=== PATIENT | female | born 1960 | race Caucasian/White ===

== ENCOUNTER 2022-01-21 22:44 | Emergency (ER) | payer MEDICAID, SELFPAY ==
--- NOTE | 2022-01-21 22:52 | ECG_ITS ---
Test Reason : WEAKNESS Blood Pressure : / mmHG Vent. Rate : 089 BPM Atrial Rate : 089 BPM P-R Int : 148 ms QRS Dur : 092 ms QT Int : 362 ms P-R-T Axes : 055 -08 080 degrees QTc Int : 440 ms Normal sinus rhythm Intra-ventricular conduction delay Minimal voltage criteria for LVH, may be normal variant ( Dix product ) Borderline ECG When compared with ECG of 15-JUN-2019 17:23, Heart rate has increased Referred By: Ellie Still Electronically Signed By:JIMMY GAYTAN MD
[2022-01-21 22:54] VITALS: BP 160/70; PULSE 70; O2SAT 98
[2022-01-21 23:13] VITALS: BP 167/76; PULSE 76; RESP 20; TEMP 37.8; O2SAT 94; BMI 27.4
--- NOTE | 2022-01-21 23:16 | ED.WEAKNESS ---
HPI - Weakness General Chief complaint: Weakness Stated complaint: increased weakness Time Seen by Provider: 01/21/22 22:51 Source: family Mode of arrival: EMS Limitations: other (non verbal dementia ) History of Present Illness HPI Narrative: This is a 61-year-old female past medical history significant for CVA, dementia, nonverbal presenting to the emergency department with family member (daughter) who reports that patient has been weak, nausea and vomiting all day. Tells me that her mother has just been off the past day. She tells me each time she tries to feed her mother she begins to vomit has vomited alot . She reports she feels like mother is weak. She tells me at baseline she is not able to do much but today things just seem different. Mother is unable to verbalize any complaints. Unable to obtain an accurate history or review of systems. Related Data Allergies Allergy/AdvReac Type Severity Reaction Status Date / Time No Known Allergies Allergy Unverified 12/27/19 15:52 [No Known Allergies*] none Allergy Unknown Uncoded 08/10/18 00:00 Review of Systems Review of Systems: Yes Unobtainable due to mental status PMFSH Past Medical History Attestation statement: The following information was validated with the patient. Source: old records reviewed and nursing notes reviewed Social History Social History Advance Directives: No Advance Directives Information Provided: No Physical Exam Vital Signs: Vital Signs: Last Vital Signs Temp 99.8 F 01/22/22 00:22 Pulse 74 01/22/22 00:22 Resp 18 01/22/22 00:22 BP 197/91 H 01/22/22 00:22 Pulse Ox 97 01/22/22 00:22 O2 Del Method 01/22/22 00:22 BMI result Body Mass Index 27.4 Vital signs stable however, low-grade fever. Appearance: Alert.? Awake. Appears comfortable. No acute distress.? Head: Normocephalic, atraumatic, no step-offs or deformities Eyes: Pupils equal, round and reactive to light.? Extraocular movements intact. ENT: Pharynx normal.? Neck: Normal inspection.? Neck supple.? CVS: Normal heart rate and rhythm.? Pulses normal.? Respiratory: No respiratory distress.? Breath sounds normal.? Abdomen: Soft and patient grimaces with palpation of abdomen throughout. Normal bowel sounds.? Skin: Skin warm and dry.? Normal skin color.? Normal skin turgor.? Extremities: No lower extremity edema.? No calf ttp. Global weakness. Neuro: Awake, alert, moving all extremities. Neuro exam appears to be at patient's baseline per family member, unable to participate in review of systems, not following commands. Course Reevaluation(s) Reevaluation #1: CBC within normal limits. Chemistry with no acute electrolyte abnormalities requiring intervention. Lactic acid negative. Troponin 35.5 likely secondary to demand ischemia EKG with LVH however no signs of acute ischemia. Unlikely ACS. Will repeat troponin at 03:00 hour jamie. BNP 67. Patient noted to be COVID positive. Patient difficult stick therefore delay in obtaining CT scans with contrast. Patient will get a Aponte catheter and urine will be obtained that way. Time: 00:46 Reevaluation #2: Sign out to Dr. Ramos Time: 00:51 MDM - Weakness MDM Narrative Medical decision making narrative: 2310 61-year-old female presents to the emergency department with daughter who is concerned for nausea, vomiting, weakness. Patient has dementia at baseline is nonverbal unable to participate in review of systems or history. Physical exam with low-grade fever, patient appears comfortable and in no acute distress according to daughter neuro at baseline. Regular rate and rhythm, lungs clear, abdomen soft patient grimacing with palpation of abdomen however no peritoneal signs, normal bowel sounds. Normoactive bowel sounds. Will rule out viral infection COVID, UTI as most likely causes. Unlikely CVA, stroke, ICH. Will also rule out ACS. Will obtain CT of the chest, abdomen, pelvis and head. Will obtain basic labs, urine. Will rule out infection, ACS, electrolyte abnormalities, anemia. Medical Records Attestation: I reviewed the patient's medical records. Lab Data Attestation: I reviewed the patient's lab results. Result diagrams: 01/21/22 23:54 01/21/22 23:54 Labs: Lab Results 01/21/22 01/21/22 01/21/22 Range/Units 23:54 23:54 23:54 WBC 8.7 (4.8-10.8) X10*3/uL RBC 5.10 (4.20-5.50) X10*6/uL Hgb 15.0 (12.0-16.0) g/dl Hct 44.5 (37.0-47.0) % MCV 87.3 (80.0-98.0) fL MCH 29.4 (27.0-33.0) pg MCHC 33.7 (31.0-35.0) g/dl RDW 12.2 (11.0-16.0) % Plt Count 183 (160-400) X10*3/uL MPV 9.6 (9.4-12.3) fL Immature Gran % (Auto) 0.3 (0.0-0.4) % Neut % (Auto) 88.3 H (45-73) % Lymph % (Auto) 5.7 L (20-40) % [place] % (Auto) 5.1 (2-11) % Eos % (Auto) 0.3 (0-4) % Baso % (Auto) 0.3 (0-2) % Lymph # (Auto) 0.5 L (1.2-4.9) X10*3/uL [place] # (Auto) 0.4 (0.1-1.2) X10*3/uL Eos # (Auto) 0.0 (0.0-0.4) X10*3/uL Baso # (Auto) 0.0 (0.0-0.2) X10*3/uL Abs Immat Gran (auto) 0.03 (0.00-0.03) X10*3/uL Absolute Neuts (auto) 7.6 (2.0-8.3) x10*3/uL Absolute Nucleated RBC 0.000 (0.0-0.012) X10*3/uL Nucleated RBC % (auto) 0.0 (0.0-0.2) /100WBC Sodium 140 (135-145) mmol/L Potassium 4.2 (3.3-5.1) mmol/L Chloride 101 (96-108) mmol/L Carbon Dioxide 26 (22-29) mmol/L Anion Gap 17 (12-20) BUN 11 (9-16) mg/dL Creatinine 1.09 (0.5-1.4) mg/dL Estim Creat Clear Calc 49.6 Estimated GFR 51 Random Glucose 151 H (60-115) mg/dL Lactic Acid (0.5-2.0) mmol/L Calcium 9.7 (8.4-10.2) mg/dL Magnesium 1.7 (1.6-2.6) mg/dL Total Bilirubin 0.6 (0.0-1.0) mg/dL AST 28 (5-31) U/L ALT 23 (0-31) U/L Alkaline Phosphatase 122 H (39-117) U/L Troponin I High Sens 35.5 H (<3.5-17.0) ng/L B-Natriuretic Peptide (<100) pg/mL Total Protein 7.5 (6.5-8.0) g/dL Albumin 4.6 (3.5-5.0) g/dL COVID-19 ([facility]ENIO) (Negative) COVID-19 Clin Com 01/21/22 01/21/22 01/21/22 Range/Units 23:54 23:54 23:54 WBC (4.8-10.8) X10*3/uL RBC (4.20-5.50) X10*6/uL Hgb (12.0-16.0) g/dl Hct (37.0-47.0) % MCV (80.0-98.0) fL MCH (27.0-33.0) pg MCHC (31.0-35.0) g/dl RDW (11.0-16.0) % Plt Count (160-400) X10*3/uL MPV (9.4-12.3) fL Immature Gran % (Auto) (0.0-0.4) % Neut % (Auto) (45-73) % Lymph % (Auto) (20-40) % [place] % (Auto) (2-11) % Eos % (Auto) (0-4) % Baso % (Auto) (0-2) % Lymph # (Auto) (1.2-4.9) X10*3/uL [place] # (Auto) (0.1-1.2) X10*3/uL Eos # (Auto) (0.0-0.4) X10*3/uL Baso # (Auto) (0.0-0.2) X10*3/uL Abs Immat Gran (auto) (0.00-0.03) X10*3/uL Absolute Neuts (auto) (2.0-8.3) x10*3/uL Absolute Nucleated RBC (0.0-0.012) X10*3/uL Nucleated RBC % (auto) (0.0-0.2) /100WBC Sodium (135-145) mmol/L Potassium (3.3-5.1) mmol/L Chloride (96-108) mmol/L Carbon Dioxide (22-29) mmol/L Anion Gap (12-20) BUN (9-16) mg/dL Creatinine (0.5-1.4) mg/dL Estim Creat Clear Calc Estimated GFR Random Glucose (60-115) mg/dL Lactic Acid 1.1 (0.5-2.0) mmol/L Calcium (8.4-10.2) mg/dL Magnesium (1.6-2.6) mg/dL Total Bilirubin (0.0-1.0) mg/dL AST (5-31) U/L ALT (0-31) U/L Alkaline Phosphatase (39-117) U/L Troponin I High Sens (<3.5-17.0) ng/L B-Natriuretic Peptide 67 (<100) pg/mL Total Protein (6.5-8.0) g/dL Albumin (3.5-5.0) g/dL COVID-19 ([facility]) Positive A (Negative) COVID-19 Clin Com See Note Critical Care Time Critical Care Time Critical Care Time: No Discharge Plan Discharge Clinical Impression: Weakness, Nausea & vomiting, Physical deconditioning, COVID-19 Patient Disposition: Still a Patient Instructions: COVID-19 (Coronavirus Disease 2019) (ED) Additional Instructions: Take your medications as prescribed. If you were prescribed antibiotics today, it is important that you take your medication to their entirety, do not skip any doses, do not finish them early. Today you tested positive for COVID-19. Take Ibuprofen or Tylenol as needed for fevers or body aches. Quarantine for 5 days and ensure you wear a mask. After 5 days you should wear a mask for 5 days after that. Practice social distancing and good hand hygiene. Drink plenty of fluids. Follow-up with your primary care provider this week. Return to the emergency department with new or worsening symptoms. In case of emergency call 911 You can purchase a pulse oximeter from your local pharmacy or grocery store, and monitor your oxygen saturation if it goes below 94% you should return to the emergency department for further evaluation.
[2022-01-22 00:01] LABS: MANUAL DIFF FLAG NO
[2022-01-22 00:02] LABS: Basophils Percent Auto 0.3 % (0-2); Eosinophils Percent Auto 0.3 % (0-4); Hematocrit 44.5 % (37.0-47.0); Imm Gran Abs Auto 0.03 X10*3/uL (0.00-0.03); Imm Gran Pct Auto 0.3 % (0.0-0.4); Lymphocytes Absolute Auto 0.5 X10*3/uL (1.2-4.9); Lymphocytes Percent Auto 5.7 % (20-40); Mean Corpuscular HGB Conc 33.7 g/dl (31.0-35.0); Mean Corpuscular Hemoglobin 29.4 pg (27.0-33.0); Mean Corpuscular Volume 87.3 fL (80.0-98.0); Mean Platelet Volume 9.6 fL (9.4-12.3); Monocytes Absolute Auto 0.4 X10*3/uL (0.1-1.2); Monocytes Percent Auto 5.1 % (2-11); Neutrophils Absolute Auto 7.6 x10*3/uL (2.0-8.3); Neutrophils Percent Auto 88.3 % (45-73); Platelet Count 183 X10*3/uL (160-400); Red Cell Distribution Width 12.2 % (11.0-16.0); White Blood Count 8.7 X10*3/uL (4.8-10.8)
[2022-01-22 00:06] LABS: COVID-19 Test Positive (Negative)
[2022-01-22 00:14] LABS: Lactic Acid 1.1 mmol/L (0.5-2.0)
[2022-01-22 00:17] LABS: Alanine Aminotransferase 23 U/L (0-31); Albumin Level 4.6 g/dL (3.5-5.0); Alkaline Phosphatase 122 U/L (39-117); Anion Gap 17 (12-20); Aspartate Amino Transferase 28 U/L (5-31); Bilirubin Total 0.6 mg/dL (0.0-1.0); Blood Urea Nitrogen 11 mg/dL (9-16); Calcium 9.7 mg/dL (8.4-10.2); Carbon Dioxide 26 mmol/L (22-29); Chloride 101 mmol/L (96-108); Creatinine Clr Calc Pharmacy 49.6; Estimated Glomerular Filt Rate 51; Glucose Random 151 mg/dL (60-115); Magnesium 1.7 mg/dL (1.6-2.6); Potassium 4.2 mmol/L (3.3-5.1); Sodium 140 mmol/L (135-145); Total Protein 7.5 g/dL (6.5-8.0)
[2022-01-22 00:20] LABS: Troponin-I High Sensitivity 35.5 ng/L (<3.5-17.0)
[2022-01-22 00:21] LABS: B Type Natriuretic Peptide 67 pg/mL (<100)
[2022-01-22 00:22] VITALS: BP 197/91; PULSE 74; RESP 18; TEMP 37.7; O2SAT 97
[2022-01-22] MEDS: Acetaminophen 325 MG TABLET 975 MG PO (00:26)
[2022-01-22] MEDS: 0.9 % Sodium Chloride 1,000 ML 999 ML IV (01:25)
[2022-01-22] MEDS: ondansetron HCL 4 MG/2 ML VIAL IVPUSH (01:25)
[2022-01-22 01:41] LABS: Appearance Urine Clear; Color Urine Yellow; Glucose Urine UA Negative (Negative); Leukocyte Esterase Urine Trace (Negative); Nitrite Urine Negative (Negative); PH 5.5 (5.0-9.0); UMIC TRIGGER UACC YES; Urine Blood Trace (Negative); Urine Ketones Negative (Negative); Urine Protein Negative (Neg-Trace)
[2022-01-22 01:53] LABS: Bacteria Urine Trace (None Seen); Hyaline Casts Urine 0-2 /LPF (0-2); Squamous Epithelial Cell Urine 0-2 /HPF (0-2); WBC Urine 0-5 /HPF (0-5)
[2022-01-22 02:41] VITALS: BP 137/77; PULSE 68; RESP 18; TEMP 37; O2SAT 94
[2022-01-22 03:18] LABS: Troponin-I High Sensitivity 30.9 ng/L (<3.5-17.0)
== END 2022-01-22 02:55 | disposition home or self-care (01) ==
PROVIDERS: Physician Assistant; Emergency Provider Internal Medicine; PCP Family Medicine
DX: U07.1 COVID-19 (principal); R53.1 Weakness; R11.2 Nausea with vomiting, unspecified; R06.02 Shortness of breath; Z79.899 Other long term (current) drug therapy
CPT/HCPCS: 36415; 80053; 81001; 83605; 83735; 83880; 84484; 85025; 87040; 87635; 93005; 96374; 99284; J2405

== ENCOUNTER 2022-03-18 09:25 | Observation (INO) | payer MEDICAID, SELFPAY ==
[2022-03-18] VITALS (8 sets, daily range): BP systolic 154–190; BP diastolic 72–96; PULSE 42–58; RESP 13–16; TEMP 36.4–36.9; O2SAT 92–99; BMI 34.8
--- NOTE | ~2022-03-18 | CT_ITS ---
EXAMINATION: CT HEAD WITHOUT CONTRAST (STROKE PROTOCOL) CLINICAL INFORMATION: Stroke protocol. COMPARISON: Prior CT October 2012 TECHNIQUE: Contiguous axial imaging was performed from the skull base to vertex without intravenous administration of contrast. This CT examination was performed using dose optimization techniques as appropriate, variously including the following: *Automated exposure control *Adjustment of mA and/or kV according to patient size (this includes techniques or standardized protocols for targeted exams where dose is matched to indication/reason for exam; i.e. extremities or head) *Use of iterative reconstruction technique DLP: 736 mGy-cm FINDINGS: There are periventricular white matter changes stable compared to prior compatible with chronic small vessel disease. There is no mass hemorrhage or cerebral edema. There are arterial calcifications. Ventricles and basal cisterns are unremarkable. There is chronic mucosal thickening of the maxillary sinuses left greater than right Mastoid air cells clear. No fracture. There is stranding in the subcutaneous soft tissues in the right high parietal occipital region compatible with contusion. CT/CT head for stroke IMPRESSION: No acute intracranial pathology. This critical result was discussed with Dr. Mariscal at 9:58 AM on 03/18/2022. It was ascertained that the content and urgency of the report was understood at the time of direct communication.
--- NOTE | ~2022-03-18 | CT_ITS ---
EXAMINATION: CTA NECK WITH CONTRAST (STROKE) CTA BRAIN WITH CONTRAST (STROKE) CLINICAL INFORMATION: Stroke. Right-sided weakness. COMPARISON: Brain MRI from 07/14/2012. TECHNIQUE: Initial noncontrast bobbin presser imaging of the head and neck was performed. Comparison is made with noncontrast head CT from earlier today. Test bolus sequences followed by intravenous administration 70 mL of Omnipaque 350. Helical imaging was performed in the axial plane from the aortic arch to the skull vertex. Delayed postcontrast imaging of the head was also performed. The data was processed at the senior cytogenetic technologist's workstation for generation of MIP sequences. Angled MIPs and volume rendered reformatted images were also generated at an offline 3D workstation. Stenoses are assessed in accordance with NASCET criteria unless otherwise indicated. This CT examination was performed using dose optimization techniques as appropriate, variously including the following: *Automated exposure control. *Adjustment of mA and/or kV according to patient size (this includes techniques or standardized protocols for targeted exams where dose is matched to indication/reason for exam; i.e. extremities or head). *Use of iterative reconstruction technique. DLP: 1549 mGy-cm FINDINGS: CT Head: There is no evidence of acute intracranial hemorrhage or edematous territorial infarction. Confluent hypoattenuation in the periventricular and deep white matter. Anderson-white matter differentiation is preserved. Proportional prominence of the ventricles and sulcal spaces. No evidence for obstructive hydrocephalus. No abnormal mass effect or midline shift. No extra-axial fluid collections. No pathologic intra-axial enhancement or regional oligemia. No acute soft tissue or osseous abnormalities. Moderate mucosal thickening of the paranasal sinuses. The mastoid air cells and middle ear cavities are clear. Multifocal odontogenic enamel erosions. Periapical lucency associated with the maxillary left molar. CT Neck: The thyroid gland and remaining cervical soft tissues are within normal limits. Straightening of the normal cervical lordosis. Moderate degenerative disc disease from C2-C7. Facet and uncovertebral joint arthropathy leads to osseous encroachment on the neural foramina from C2-C6. CT Upper Chest: Mosaic attenuation pattern of the visualized upper lungs. Otherwise, the visualized lung apices and upper mediastinum are within normal limits. Neck CTA: Aortic Arch: Normal contour and caliber with mild calcific atherosclerotic disease. Classic 3 vessel branching pattern of the aortic arch. Great Vessel Origins: No significant stenosis of the branch origins. Right Common Carotid Artery: No focal stenosis or occlusion. Retropharyngeal course. Cervical Right Internal Carotid Artery: Mild atherosclerotic disease of the carotid bulb and proximal internal carotid artery without flow-limiting stenosis. Left Common Carotid Artery: No focal stenosis or occlusion. Retropharyngeal course. Cervical Left Internal Carotid Artery: Mild atherosclerotic disease of the carotid bulb and proximal internal carotid artery without flow-limiting stenosis. Cervical Right Vertebral Artery: Mildly dominant. No focal stenosis or occlusion. Cervical Left Vertebral Artery: No focal stenosis or occlusion. Brain CTA: Intracranial Internal Carotid Arteries: Calcific atherosclerotic disease of the intracranial internal carotid arteries without occlusion or flow-limiting stenosis. Right Anterior Cerebral Artery: Normal A1 segment. Normal opacification of the distal BELA segments. Left Anterior Cerebral Artery: Normal A1 segment. Normal opacification of the distal BELA segments. Anterior Communicating Artery: Normal. Right Middle Cerebral Artery: There is moderate atherosclerotic irregularity of the M1 segment without flow-limiting stenosis or occlusion. Symmetric arborization of the distal segments. Left Middle Cerebral Artery: There is moderate atherosclerotic irregularity of the M1 segment without flow-limiting stenosis or occlusion. Symmetric arborization of the distal segments. Right Vertebral Artery: Atherosclerotic disease causes mild stenosis of the V4 segment. Normal opacification of the proximal segments of the posterior inferior cerebellar artery. Left Vertebral Artery: Atherosclerotic disease causes moderate stenosis of the V4 segment. Normal opacification of the proximal segments of the posterior inferior cerebellar artery. Basilar Artery: Normal without focal stenosis or occlusion. Normal appearance of the proximal superior cerebellar arteries. Right Posterior Cerebral Artery: Moderate multifocal stenoses of the P1 segment. Normal opacification of the distal X [employer]LECTRON[employer] WIREMAN segments. Left Posterior Cerebral Artery: Mild atherosclerotic stenosis of the P1 segment. Normal opacification of the distal X R[employer]LECT[employer] WIREMAN segments. Normal opacification of the superior sagittal, straight, transverse, and sigmoid sinuses. CT/CT angio head neck stroke IMPRESSION: 1. No evidence of acute intracranial hemorrhage or edematous territorial infarction. 2. Extensive underlying microangiopathy and generalized cerebral volume loss. 3. CTA of the head and neck without proximal occlusion. 4. Intracranial atherosclerotic disease. Moderate atherosclerotic stenoses of the M1 segment of the MCAs, V4 segment of the left vertebral artery, and P1 segment of the right X R[employer]LECT[employer] WIREMAN. No additional proximal flow-limiting stenoses. This critical result was discussed with Dr.Steven Mariscal at 10:33 on 03/18/2022 and it was ascertained that the content and urgency of the report was understood at the time of direct communication.
--- NOTE | 2022-03-18 09:30 | ED_ITS ---
HPI - Weakness General Chief complaint: Stroke Stated complaint: LKWT 11pm, Stroke alert per EMS Time Seen by Provider: 03/18/22 09:29 Source: EMS Mode of arrival: EMS Limitations: language barrier History of Present Illness HPI Narrative: right sided weakness, last known well at 11pm. Daughter noticed the deficit this morning. Patient with prior history of CVA with aphasia and had left sided weakness for old stroke and now has right sided weakness MD Complaint: focal weakness Onset (ago): hour(s) Duration: constant Location: RUE, right hand and RLE Severity: moderate Related Data Home Medications Medication Instructions Recorded Confirmed albuterol sulfate 90 mcg/actuation 2 puff inhalation Q4-6H PRN 03/18/22 03/18/22 aerosol inhaler (ProAir HFA) Wheezing allopurinol 100 mg tablet 1 tab PO QAM 03/18/22 03/18/22 aspirin 325 mg tablet,delayed 1 tab PO QAM 03/18/22 03/18/22 release atorvastatin 80 mg tablet 1 tab PO BEDTIME 03/18/22 03/18/22 cholecalciferol (vitamin D3) 25 1 cap PO QAM 03/18/22 03/18/22 mcg (1,000 unit) capsule (Vitamin D3) docusate sodium 100 mg capsule 1 cap PO BID constipation 03/18/22 03/18/22 ferrous sulfate 325 mg (65 mg 1 tab PO DAILY 03/18/22 03/18/22 iron) tablet (FeroSul) fluoxetine 20 mg capsule 1 cap PO QAM 03/18/22 03/18/22 lisinopril 40 mg tablet 1 tab PO QAM 03/18/22 03/18/22 metoprolol tartrate 25 mg tablet 1 tab PO BID 03/18/22 03/18/22 omeprazole 20 mg capsule,delayed 1 cap PO BID 03/18/22 03/18/22 release Previous Rx's Medication Instructions Recorded ondansetron 4 mg disintegrating 4 mg PO Q6-8H PRN nausea and 01/22/22 tablet vomiting #7 tabs Allergies Allergy/AdvReac Type Severity Reaction Status Date / Time No Known Allergies Allergy Unverified 12/27/19 15:52 [No Known Allergies*] none Allergy Unknown Uncoded 08/10/18 00:00 Review of Systems Review of Systems: Yes Unobtainable due to mental status and Other (patient is aphasic) [facility] Past Medical History Medical History (Updated 03/18/22 @ 13:07 by CHRIS To) Asthma Diabetes HLD (hyperlipidemia) HTN (hypertension) Stroke Surgical History History of cholecystectomy Family History Family History Other Diabetes Social History Social History (Updated 03/18/22 @ 13:05 by CHRSI To) Household Members: Children Alcohol intake: never Patient Tobacco Use Status: Never used Tobacco Use of substances other than those prescribed or required for medical reasons: No Advance Directives: No Advance Directives Information Provided: Yes Physical Exam Vital Signs: Vital Signs: Last Vital Signs Temp 98.3 F 03/18/22 14:47 Pulse 42 L 03/18/22 14:47 Resp 16 03/18/22 14:47 BP 161/79 H 03/18/22 14:47 Pulse Ox 96 03/18/22 14:47 O2 Del Method 03/18/22 14:47 BMI result Body Mass Index 34.8 Const: Other: female aphasic looking older than stated age Nutritional Appearance: average body habitus Limitations: no limitations HEENT: Head: Yes normal to inspection Ears: external ears normal General nose exam: Normal external nose present Mouth: Normal oral and palatal mucosa present and oropharynx normal Throat: Yes posterior oropharynx normal Eyes: General: appearance normal, both eyes and all related structures Neck: Other: supple Neck: Yes normal visual inspection Chest: Chest palpation & inspection: normal inspection of the chest Resp: Auscultation: clear to auscultation bilaterally Cardio: Jugular venous distension: no JVD Rate: regular rate Rhythm: regular rhythm Heart sounds: S1 normal heart sound present and S2 normal heart sound present GI: Inspection: Yes normal to inspection Palpation (GI): Soft to palpation, nontender and No hepatosplenomegaly present Auscultation: normal bowel sounds : General: Yes no CVA tenderness Back/Spine/Pelvis: Back: no CVA tenderness Skin: General skin exam: no rashes or lesions noted Neuro: Other: left side at baseline right new upper and lower weakness, NIH 3 Cranial nerv es: Yes CN's II-XII intact bilaterally Extrem: General: Yes normal to inspection Psych: Appearance: grossly normal NIH Stroke Scale Internal: Initial- Upon Arrival Level of Consciousness: Alert Level of Consciousness Questions: Answers neither question correctly (aphasic at baseline) Level of Consciousness Commands: Performs both tasks correctly Best Gaze: Normal Visual: No visual loss (dosen't talk) Facial Palsy: Normal Motor Arm (Right): Drift Motor Arm (Left): No drift Motor Leg (Right): Drift Motor Leg (Left): No drift Limb Ataxia: Absent Sensory: Normal Best Language: No aphasia (patient is aphasic at baseling) Dysarthia: Normal (non verbal) Course Reevaluation(s) Reevaluation #1: I spent 40 minutes of critical care, with interventions, assessments, speaking to patient, consultants, and family. Dr. Phelps aware and discussed Time: 11:47 Medications Administered Generic Name Dose Route Start Last Admin Trade Name Freq PRN Reason Stop Dose Admin Allopurinol 100 mg 03/18/22 13:15 03/18/22 13:30 Allopurinol 100 Mg Tablet PO Not Given DAILY KAROL Aspirin 325 mg 03/18/22 13:15 03/18/22 13:30 Aspirin Enteric Coated 325 Mg Tablet.Dr PO Not Given DAILY KAROL Enoxaparin Sodium 40 mg 03/18/22 12:45 03/18/22 13:24 Enoxaparin Sodium 40 Mg/0.4 Ml Syringe SUBCUT 40 mg Q24H KAROL Administration Fluoxetine HCl 20 mg 03/18/22 13:15 03/18/22 13:30 Fluoxetine Hcl 20 Mg Capsule PO Not Given DAILY [facility] Insulin Human Lispro 0 unit 03/18/22 16:30 03/18/22 15:36 Insulin Lispro 100 Unit/Ml 3 Ml Vial SUBCUT Not Given QIDACHS [facility] Protocol Lisinopril 40 mg 03/18/22 14:00 03/18/22 13:30 Lisinopril 40 Mg Tablet PO Not Given DAILY [facility] Protocol Sodium Chloride 3 ml 03/18/22 16:00 03/18/22 16:25 0.9 % Sodium Chloride Flush 3 Ml Syringe IVFLUSH 3 ml QSHIFT KAROL Administration Discontinued Medications Generic Name Dose Route Start Last Admin Trade Name Freq PRN Reason Stop Dose Admin Iohexol 100 ml 03/18/22 09:57 03/18/22 10:05 Iohexol 350 Mg/Ml 100 Ml Infus..Btl IV 03/18/22 09:58 70 ml ONCE ONE Administration Discharge Plan Discharge Clinical Impression: Stroke Patient Disposition: Admitted As Inpatient
--- NOTE | 2022-03-18 09:37 | ECG_ITS ---
Test Reason : stroke Blood Pressure : / mmHG Vent. Rate : 055 BPM Atrial Rate : 055 BPM P-R Int : 154 ms QRS Dur : 104 ms QT Int : 460 ms P-R-T Axes : 032 -17 068 degrees QTc Int : 440 ms Sinus bradycardia Minimal voltage criteria for LVH, may be normal variant ( Nik product ) Borderline ECG When compared with ECG of 21-JAN-2022 23:20, Vent. rate has decreased BY 34 BPM Referred By: Jamal Mariscal Electronically Signed By:JULIANNE FORTUNE MD
[2022-03-18 09:49] LABS: Glucose, Whole Blood 101 mg/dL (60-115)
[2022-03-18] MEDS: iohexoL 350 MG/ML 100 ML INFUS..BTL IV (10:05)
--- NOTE | 2022-03-18 10:24 | PC.NURSE ---
pt alert. unable to assess orientation. presents with rt side weakness. pt speaks very little at baseline. BP 160s. badycardic on HR monitor. other VS wnl. CT taken. waiting on results. daughter at bedside.
[2022-03-18 10:42] LABS: MANUAL DIFF FLAG NO
[2022-03-18 10:48] LABS: Basophils Percent Auto 0.2 % (0-2); Eosinophils Absolute Auto 0.1 X10*3/uL (0.0-0.4); Eosinophils Percent Auto 2.4 % (0-4); Hematocrit 42.3 % (37.0-47.0); Hemoglobin 14.1 g/dl (12.0-16.0); Imm Gran Abs Auto 0.01 X10*3/uL (0.00-0.03); Imm Gran Pct Auto 0.2 % (0.0-0.4); Lymphocytes Absolute Auto 1.5 X10*3/uL (1.2-4.9); Lymphocytes Percent Auto 32.9 % (20-40); Mean Corpuscular HGB Conc 33.3 g/dl (31.0-35.0); Mean Corpuscular Hemoglobin 29.3 pg (27.0-33.0); Mean Corpuscular Volume 87.9 fL (80.0-98.0); Mean Platelet Volume 10.1 fL (9.4-12.3); Monocytes Absolute Auto 0.4 X10*3/uL (0.1-1.2); Monocytes Percent Auto 7.8 % (2-11); Neutrophils Absolute Auto 2.5 x10*3/uL (2.0-8.3); Neutrophils Percent Auto 56.5 % (45-73); Platelet Count 158 X10*3/uL (160-400); Red Blood Count 4.81 X10*6/uL (4.20-5.50); Red Cell Distribution Width 12.2 % (11.0-16.0); White Blood Count 4.5 X10*3/uL (4.8-10.8)
[2022-03-18 10:51] LABS: INTERNATIONAL NORM RATIO 0.9 (0.9-1.1); Prothrombin Time 10.5 SEC (10.0-13.1)
[2022-03-18 10:55] LABS: Partial Thromboplastin Time 33.7 SEC (26.0-36.4)
[2022-03-18 11:05] LABS: Anion Gap 12 (12-20); Blood Urea Nitrogen 13 mg/dL (9-16); Calcium 8.7 mg/dL (8.4-10.2); Carbon Dioxide 28 mmol/L (22-29); Chloride 106 mmol/L (96-108); Creatinine Clr Calc Pharmacy 52.4; Estimated Glomerular Filt Rate > 60; Glucose Random 109 mg/dL (60-115); Potassium 4.1 mmol/L (3.3-5.1); Sodium 142 mmol/L (135-145)
[2022-03-18 11:11] LABS: Troponin-I High Sensitivity 30.7 ng/L (<3.5-17.0)
[2022-03-18 12:45] LABS: Stroke Lab Use COMPLETE
--- NOTE | 2022-03-18 12:54 | PM.IMHP ---
History of Present Illness Date of Service: 03/18/22 <CHRIS To - Last Filed: 03/18/22 15:35> Attending physician on admission: Raghu Quiroga <CHRIS To - Last Filed: 03/18/22 15:35> Chief Complaint: Right side weakness <CHRIS To - Last Filed: 03/18/22 15:35> This is a 61 year old female with a history of stroke and residual left-sided weakness, diabetes among others who was brought to the emergency department today with new onset of right-sided weakness this morning. She was in her usual state of health when she went to bed last night between 10:30-11 pm. When she woke up this morning, her daughter noticed that she wasn't using her arms to assist her into her wheelchair and she wasn't putting weight on her right leg either. She has a history of left side weakness from previous stroke but is able to move both extremities. She is primarily nonverbal and is wheelchair bound and her history was primarily obtained from her daughter at the bedside. In the ED, her Brain CT showed no acute intracranial pathology.CTA of head and neck Revealed extensive underlying microangiopathy and generalized cerebral volume loss but no proximal occlusion. On my evaluation she was able to move both her right arm and right leg although right leg appeared somewhat more weak in comparison to left side. she was also noted to be bradycardic. Blood pressure has remained stable. Unable to assess for any symptoms although she appears comfortable, awake and alert at this time. She will be admitted the hospital overnight for observation for evaluation of right side weakness. <CHRIS To - Last Filed: 03/18/22 15:35> Review of Systems Review of Systems: unable to obtain ROS as the patient is primarily nonverbal at baseline <CHRIS To - Last Filed: 03/18/22 15:35> [facility] Medical History: Medical History (Updated 03/18/22 @ 13:07 by CHRIS To) Asthma Diabetes HLD (hyperlipidemia) HTN (hypertension) Stroke <CHRIS To Last Filed: 03/18/22 15:35> Functional capacity: wheelchair bound <CHRIS To - Last Filed: 03/18/22 15:35> Family History: Family History Other Diabetes <CHRIS To - Last Filed: 03/18/22 15:35> Surgical History: Surgical History History of cholecystectomy <CHRIS To - Last Filed: 03/18/22 15:35> Social History: Social History (Updated 03/18/22 @ 13:05 by CHRIS To) Household Members: Children Alcohol intake: never Patient Tobacco Use Status: Never used Tobacco Use of substances other than those prescribed or required for medical reasons: No Advance Directives: No Advance Directives Information Provided: Yes <CHRIS To - Last Filed: 03/18/22 15:35> Meds Allergies/Adverse reactions: Allergies Allergy/AdvReac Type Severity Reaction Status Date / Time No Known Allergies Allergy Unverified 12/27/19 15:52 [No Known Allergies*] none Allergy Unknown Uncoded 08/10/18 00:00 <CHRIS To - Last Filed: 03/18/22 15:35> Active Medications: Current Medications Acetaminophen (Acetaminophen 325 Mg Tablet) 650 mg PO Q6H PRN PRN Reason: Pain, Mild (Pain Scale 1-3) Dextrose (Dextrose 50 % 25 Gm/50 Ml Syringe) 25 gm IVPUSH Q15M PRN; Protocol PRN Reason: per Hypoglycemia Standing Ord. Docusate Sodium (Docusate Sodium 100 Mg Capsule) 100 mg PO DAILY PRN PRN Reason: Constipation Enoxaparin Sodium (Enoxaparin Sodium 40 Mg/0.4 Ml Syringe) 40 mg SUBCUT Q24H KAROL Glucose (Glucose Gel 15 Gm Gel..Gram.) 15 gm PO Q15M PRN; Protocol PRN Reason: per Hypoglycemia Standing Ord. Insulin Human Lispro (Insulin Lispro 100 Unit/Ml 3 Ml Vial) 0 unit SUBCUT QIDACHS KAROL; Protocol Pharmacy Consult (Consult Rx Perform Med Rec) 1 each MISCELLANE ONCE PRN PRN Reason: Consult order Sodium Chloride (0.9 % Sodium Chloride Flush 3 Ml Syringe) 3 ml IVFLUSH QSHIFT [facility] <CHRIS To - Last Filed: 03/18/22 15:35> Home medications: Home Medications Medication Instructions Recorded Confirmed Last Taken Type albuterol sulfate 90 mcg/actuation 2 puff inhalation Q4-6H PRN 03/18/22 03/18/22 Unknown History aerosol inhaler (ProAir HFA) Wheezing allopurinol 100 mg tablet 1 tab PO QAM 03/18/22 03/18/22 Unknown History aspirin 325 mg tablet,delayed 1 tab PO QAM 03/18/22 03/18/22 Unknown History release atorvastatin 80 mg tablet 1 tab PO BEDTIME 03/18/22 03/18/22 Unknown History cholecalciferol (vitamin D3) 25 1 cap PO QAM 03/18/22 03/18/22 Unknown History mcg (1,000 unit) capsule (Vitamin D3) docusate sodium 100 mg capsule 1 cap PO BID constipation 03/18/22 03/18/22 Unknown History ferrous sulfate 325 mg (65 mg 1 tab PO DAILY 03/18/22 03/18/22 Unknown History iron) tablet (FeroSul) fluoxetine 20 mg capsule 1 cap PO QAM 03/18/22 03/18/22 Unknown History lisinopril 40 mg tablet 1 tab PO QAM 03/18/22 03/18/22 Unknown History metoprolol tartrate 25 mg tablet 1 tab PO BID 03/18/22 03/18/22 Unknown History omeprazole 20 mg capsule,delayed 1 cap PO BID 03/18/22 03/18/22 Unknown History release <CHRIS To - Last Filed: 03/18/22 15:35> Physical Exam Vital Signs and Narrative: Vital Signs: Last Vital Signs Temp 97.6 F 03/18/22 12:18 Pulse 58 03/18/22 12:18 Resp 16 03/18/22 12:18 BP 160/96 H 03/18/22 12:18 Pulse Ox 95 03/18/22 12:18 O2 Del Method 03/18/22 12:18 BMI result Body Mass Index 34.8 <CHRIS To - Last Filed: 03/18/22 15:35> Const: Other: patient observed lying in bed. awake, alert. appears comfortable unable to assess orientation as she doesn't talk <Marcia BrooksCHRIS - Last Filed: 03/18/22 15:35> Nutritional Appearance: overweight <Marcia RobertsonCHRIS albarran - Last Filed: 03/18/22 15:35> Resp: Effort & Inspection: normal respiratory effort and able to speak in complete sentences <Marcia RobertsonCHRIS albarran - Last Filed: 03/18/22 15:35> Cardio: Rate: bradycardic <Marcia RobertsonCHRIS albarran - Last Filed: 03/18/22 15:35> Heart sounds: S1 normal heart sound present and S2 normal heart sound present <Marcia RobertsonCHRIS albarran - Last Filed: 03/18/22 15:35> GI: Inspection: No distended <Marcia RobertsonCHRIS albarran - Last Filed: 03/18/22 15:35> Palpation (GI): Soft to palpation <Marcia RobertsonCHRIS albarran - Last Filed: 03/18/22 15:35> Neuro: Other: tongue midline, face appears symmetrical she is able to following commands hand grasp is equal bilaterally. she is able to move all 4 extremities, upper extremity strength appears equal bilaterally, right lower extremity slightly weaker when compared to left <Marcia RobertsonCHRIS albarran - Last Filed: 03/18/22 15:35> Extrem: General: Yes no pedal edema <Marcia RobertsonCHRIS albarran - Last Filed: 03/18/22 15:35> Results Labs CBC and Chem 7: : 03/18/22 10:39 03/18/22 10:39 <Marcia Crain CHRIS Brooks - Last Filed: 03/18/22 15:35> Labs: Laboratory Results - last 24 hr 03/18/22 03/18/22 03/18/22 09:45 10:05 10:39 MCV 87.9 MCH 29.3 MCHC 33.3 RDW 12.2 Plt Count 158 L MPV 10.1 Immature Gran % (Auto) 0.2 Neut % (Auto) 56.5 Lymph % (Auto) 32.9 [place] % (Auto) 7.8 Eos % (Auto) 2.4 Baso % (Auto) 0.2 Lymph # (Auto) 1.5 [place] # (Auto) 0.4 Eos # (Auto) 0.1 Baso # (Auto) 0.0 Abs Immat Gran (auto) 0.01 Absolute Neuts (auto) 2.5 Absolute Nucleated RBC 0.000 Nucleated RBC % (auto) 0.0 PT Whole Blood PT 12.0 INR Whole Blood INR 1.0 APTT Anion Gap Estim Creat Clear Calc Estimated GFR POC Glucose 101 Random Glucose Calcium Total Creatine Kinase Troponin I High Sens 03/18/22 03/18/22 03/18/22 10:39 10:39 10:39 MCV MCH MCHC RDW Plt Count MPV Immature Gran % (Auto) Neut % (Auto) Lymph % (Auto) [place] % (Auto) Eos % (Auto) Baso % (Auto) Lymph # (Auto) [place] # (Auto) Eos # (Auto) Baso # (Auto) Abs Immat Gran (auto) Absolute Neuts (auto) Absolute Nucleated RBC Nucleated RBC % (auto) PT 10.5 Whole Blood PT INR 0.9 Whole Blood INR APTT 33.7 Anion Gap 12 Estim Creat Clear Calc 52.4 Estimated GFR > 60 POC Glucose Random Glucose 109 Calcium 8.7 D Total Creatine Kinase 81 Troponin I High Sens 30.7 H <CHRIS To - Last Filed: 03/18/22 15:35> Imaging Radiologist's Impressions: Impressions Head CT 03/18/22 09:50 IMPRESSION: No acute intracranial pathology. This critical result was discussed with Dr. Mariscal at 9:58 AM on 03/18/2022. It was ascertained that the content and urgency of the report was understood at the time of direct communication. Head/Neck CTA 03/18/22 10:05 IMPRESSION: 1. No evidence of acute intracranial hemorrhage or edematous territorial infarction. 2. Extensive underlying microangiopathy and generalized cerebral volume loss. 3. CTA of the head and neck without proximal occlusion. 4. Intracranial atherosclerotic disease. Moderate atherosclerotic stenoses of the M1 segment of the MCAs, V4 segment of the left vertebral artery, and P1 segment of the right HARNESS MENDER. No additional proximal flow-limiting stenoses. This critical result was discussed with Dr.Steven Mariscal at 10:33 on 03/18/2022 and it was ascertained that the content and urgency of the report was understood at the time of direct communication. <CHRIS To - Last Filed: 03/18/22 15:35> Assessment and Plan (1) Right sided weakness: Status: Acute <CHRIS To - Last Filed: 03/18/22 15:35> This is a 61 year old female with h/o CVA with left side weakness primarily nonverbal at baseline, wheelchair bound, COPD/asthma, DM, HTN, HLD who presents with right side weakness Right side weakness brain CT negative for acute stroke. imaging showing extensive microangiopathy and generalized cerebral volume loss LKWT 12/7 around 10:30pm, out of window for TPA bedside swallow pending, will obtain prior to PO continue baseline aspirin and high intensity statin neuro checks neurology consult pending PT/OT eval h/o CVA has left side weakness at baseline , but is able to move both left arm and leg primarily nonverbal at baseline and wheelchair bound bradycardia HR 40s-50s tele monitoring hold metoprolol HTN continue lisinopril hold metoprolol for bradycardia dvt ppx - lovenox code status - full code per daughter. attending - dr. quiroga dispo - pending pt eval. lives with daughter <CHRIS To - Last Filed: 03/18/22 15:35> This is a 61 year old female with h/o CVA with left side weakness primarily nonverbal at baseline, wheelchair bound, COPD/asthma, DM, HTN, HLD who presents with right side weakness Right side weakness brain CT negative for acute stroke. imaging showing extensive microangiopathy and generalized cerebral volume loss LKWT 12/7 around 10:30pm, out of window for TPA bedside swallow pending, will obtain prior to PO continue baseline aspirin and high intensity statin neuro checks neurology consult pending PT/OT eval h/o CVA has left side weakness at baseline , but is able to move both left arm and leg primarily nonverbal at baseline and wheelchair bound bradycardia HR 40s-50s tele monitoring hold metoprolol HTN continue lisinopril hold metoprolol for bradycardia dvt ppx - lovenox code status - full code per daughter. attending - dr. junaid coreao - pending pt eval. lives with daughter Addendum to history and physical by mid-level provider, CHRIS Brooks I interviewed and examined the patient. I discussed their presentation and management with the mid-level provider. I reviewed the history and physical and agree with the documentation, with the following additions and corrections: 61yo F with prior CVA with L weakness, nonverbal, wheelchair-bound, COPD/asthma, DM, HTN presenting with R-sided weakness out of window for tPA. I don't appreciate much R-sided weakness so perhaps she had a TIA. Admit to [facility] [place] on obs, swallow evaluation, ASA/statin, PT/OT, Neuro consults. <Raghu Quiroga MD - Last Filed: 03/18/22 17:27> Quality Stroke Does the patient have a stroke diagnosis?: No <CHRIS To - Last Filed: 03/18/22 15:35> VTE Prior VTE?: No <CHRIS To - Last Filed: 03/18/22 15:35> VTE Risk Level:: Medical - moderate - high <CHRIS To - Last Filed: 03/18/22 15:35> VTE Device Contraindication: N/A - Device Ordered <CHRIS To - Last Filed: 03/18/22 15:35> VTE Drug Contraindication: N/A - Med Ordered <CHRIS To - Last Filed: 03/18/22 15:35>
[2022-03-18 13:03] LABS: COVID-19 Test Negative (Negative); IDNOW Serial# 9DB6401D
--- NOTE | 2022-03-18 13:07 | PHA.MEDREC ---
Pharmacy Consult ? Medication Reconciliation Pharmacy has completed the medication reconciliation. List from [facility]
[2022-03-18] MEDS: Enoxaparin Sodium 40 MG/0.4 ML SYRINGE SUBCUT (13:24)
--- NOTE | 2022-03-18 14:48 | PC.NURSE ---
pt sleepingt but easily arousable. when asked about pain she signal with her finger no. bradycardic on HR monitor in the low 40s. BP 160s other vs wnl. occasional wet cough
[2022-03-18 15:27] LABS: Glucose, Whole Blood 99 mg/dL (60-115)
[2022-03-18] MEDS: 0.9 % Sodium Chloride Flush 3 ML SYRINGE IVFLUSH (16:25)
--- NOTE | 2022-03-18 18:03 | MHC.SL.SWA ---
Speech Pathologist Impression: moderate oral pharyngeal dysphagia Risk of Aspiration Due to: Neurological Condition Dysphasia Diet Status: Liquid Consistency and Strategies for Safe Swallow: Liquid Intake Recommendation: [place] Thick Liquid Intake Strategies: Small Sips Solid Food Consistency: Dietary Recommendations: Pureed (NDD1) Additional Modifications to Solid Foods: Patient will need one to one feeding, close monitor for swallow before presenting more food. Patient's swallow currently can vary from timely to delayed. Oral Medication Intake: Crushed with Puree Please contact the pharmacy regarding appropriate crushable or liquid drug formulations that are available whenever modified delivery is recommended. Compensatory Strategies and Precautions to be Taken for Safe Swallow: Sitting Upright (90 deg) No Straw Liquids from Cup Liquids from Spoon Small Bites and Sips Rate of Ingestion Change Oral Check Supervision While Eating and Drinking for Safe Swallow: Total Assistance (1:1) Foods to Avoid: Thin or mixed consistencies. Swallowing Recommended Treatments: Compens. Strategy Educat. Recommendation for Speech: Inpatient Speech Therapy Comment: Patient presents with moderate oral pharyngeal dysphagia characterized by slow and at times disorganized oral phase, episodic delay initiating swallow (ranging from mild to moderate delay). Patient tolerated thin liquid today without clinical signs of aspiration, but episodic delay and disorganized response to thin liquid was judged to be a risk for aspiration. Patient produced a prolonged disorganized oral phase on soft solid, tolerated puree with some improved function. Recommend start diet of PUREE (NDD1) with NECTAR THICK liquids, Pills crushed in puree. Patient will require one to one feeding, monitor for swallow before presenting more food or liquid, strict aspiration precautions. PA, RD, RN notified of recommendation by secure text, also discussed with RN in person. MANAGER BEHAVIORAL will continue to follow while patient. Frequency/Duration: M-F while inpatient. Date Range for Service Req: Timeline to reassess: Pipeline Welder Clinican/Clinical Fellow: No Supervisory Statement: I have reviewed and agree with the student/clinical fellow's documentation: N/A Speech Language Pathologist: Bessie Faye M.A., [facility]-MANAGER BEHAVIORAL
[2022-03-18 21:20] LABS: Glucose, Whole Blood 135 mg/dL (60-115)
[2022-03-18] MEDS: Omeprazole 20 MG CAPSULE.DR PO (21:26)
[2022-03-18] MEDS: Docusate Sodium 100 MG CAPSULE PO (21:26)
--- NOTE | 2022-03-18 21:31 | MHC.CM.PN ---
Addendum entered by Ramya Licea 03/18/22 21:36: Per PT evaluation: Daughter would like to take patient home. Provides 24/7 care. Assists with mobility and ADL's. PT is recommending hospital bed and elisa lift. Recommends PT while patient is hospitalized. CM to call [facility] to request needed equipment. CM to follow for discharge needs. Original Note: Pt is non-verbal and unable to participate in CM interview. Per Record, lives with daughter and uses a wheelchair. HCP is on file. It is not dated. HCP/daughter Ang Mccormick. Aidena x2. CM attempted to speak with daughter. Called ([phone]) and left message with request for return call at 2049. No return call yet. Pt placed to OBS. Unable to review [facility]. Will complete when able to speak with daughter. CM to follow for d/c needs.
[2022-03-18] MEDS: hydrALAZINE HCl 20 MG/ML VIAL 10 MG IVPUSH (23:57)
[2022-03-19] VITALS (9 sets, daily range): BP systolic 108–181; BP diastolic 82–100; PULSE 47–72; RESP 11–18; TEMP 36.8–37; O2SAT 93–98
--- NOTE | 2022-03-19 00:02 | PC.NURSE ---
Patient's bp at 181/82. Administered hydrazaline IV push per JUN.
--- NOTE | 2022-03-19 00:20 | PC.NURSE ---
While talking to patient in Mongolian about putting in a new IV line and explaining what I was doing she responded with, line, line in Mongolian. She responds to light pain verbally and slight flexion while having a new IV line put in.
[2022-03-19] MEDS: 0.9 % Sodium Chloride Flush 3 ML SYRINGE IVFLUSH ×2 (00:27→09:24)
--- NOTE | 2022-03-19 02:23 | PC.NURSE ---
Patient sleeping. No apparent distress.
[2022-03-19] MEDS: Omeprazole 20 MG CAPSULE.DR PO (06:03)
--- NOTE | 2022-03-19 06:22 | PC.NURSE ---
Administered omeprazole (per MAR) with pudding. Patient tolerates swallowing med with pudding.
--- NOTE | 2022-03-19 06:27 | PC.NURSE ---
Patient followed instructions on rolling to both sides as best as she could to change necessary chucks, bedding is clean and patient is clean. Resting comfortably.
--- NOTE | 2022-03-19 06:38 | PC.NURSE ---
notified of RNs concern of pts HTN. stating BP is fine cause pt here for cva
[2022-03-19 07:25] LABS: Glucose, Whole Blood 120 mg/dL (60-115)
[2022-03-19 07:41] LABS: Cholesterol 133 mg/dL; HDL Cholesterol 33 mg/dL; LDL Cholesterol Calculated 70 mg/dl; Triglycerides 154 mg/dL
[2022-03-19] MEDS: FLUoxetine HCl 20 MG CAPSULE PO (09:24)
[2022-03-19] MEDS: allopurinoL 100 MG TABLET PO (09:24)
[2022-03-19] MEDS: Docusate Sodium 100 MG CAPSULE PO (09:25)
[2022-03-19] MEDS: Aspirin Enteric Coated 325 MG TABLET.DR PO (09:25)
[2022-03-19] MEDS: lisinopriL 40 MG TABLET PO (09:25)
--- NOTE | 2022-03-19 11:47 | P.CNNE_ITS ---
History of Present Illness Data of Consult Service Date: 03/19/22 Primary Care Provider: Marcia Morales MD HPI Reason for consult: Right hemiparesis 61 years old woman who has previous history of left hemiparesis and probably also dementia came to hospital with new onset of right-sided weakness. Last time known well was more than 12 hours prior to coming to hospital and treatment such as intravenous tPA was not considered. She had a CTA that did not reveal any lesion that could be amenable to intra-arterial treatment. She was admitted for further evaluation. There was no associated headache dizziness speech language difficulty or change in her vision. There was no history of seizure or any recent fall. Review of Systems Review of Systems: No recent cold or flu-like illness PMFSH Past Medical History Medical History (Updated 03/19/22 @ 11:50 by Jessica Phelps MD) Asthma Diabetes HLD (hyperlipidemia) HTN (hypertension) Stroke Functional capacity: wheelchair bound Family History Family History Other Diabetes Surgical History Surgical History History of cholecystectomy Social History Social History (Updated 03/18/22 @ 13:05 by CHRIS To) Household Members: Children Alcohol intake: unknown Patient Tobacco Use Status: Never used Tobacco Use of substances other than those prescribed or required for medical reasons: Unknown Last Used Substance: Unknown Advance Directives: No Advance Directives Information Provided: Yes Meds Allergies Allergy/AdvReac Type Severity Reaction Status Date / Time No Known Allergies Allergy Unverified 12/27/19 15:52 [No Known Allergies*] Active Medications: Current Medications Acetaminophen (Acetaminophen 325 Mg Tablet) 650 mg PO Q6H PRN PRN Reason: Pain, Mild (Pain Scale 1-3) Albuterol Sulfate (Albuterol Sulfate 90 Mcg 8 Gm Inhaler) 2 puff INHALE RQ4H PRN PRN Reason: Wheezing Allopurinol (Allopurinol 100 Mg Tablet) 100 mg PO DAILY [facility] Last Admin: 03/19/22 09:24 Dose: 100 mg Aspirin (Aspirin Enteric Coated 325 Mg Tablet.) 325 mg PO DAILY [facility] Last Admin: 03/19/22 09:25 Dose: 325 mg Dextrose (Dextrose 50 % 25 Gm/50 Ml Syringe) 25 gm IVPUSH Q15M PRN; Protocol PRN Reason: per Hypoglycemia Standing Ord. Docusate Sodium (Docusate Sodium 100 Mg Capsule) 100 mg PO DAILY PRN PRN Reason: Constipation Docusate Sodium (Docusate Sodium 100 Mg Capsule) 100 mg PO BID [facility] Last Admin: 03/19/22 09:25 Dose: 100 mg Enoxaparin Sodium (Enoxaparin Sodium 40 Mg/0.4 Ml Syringe) 40 mg SUBCUT Q24H [facility] Last Admin: 03/18/22 13:24 Dose: 40 mg Fluoxetine HCl (Fluoxetine Hcl 20 Mg Capsule) 20 mg PO DAILY [facility] Last Admin: 03/19/22 09:24 Dose: 20 mg Glucose (Glucose Gel 15 Gm Gel..Gram.) 15 gm PO Q15M PRN; Protocol PRN Reason: per Hypoglycemia Standing Ord. Insulin Human Lispro (Insulin Lispro 100 Unit/Ml 3 Ml Vial) 0 unit SUBCUT QIDACHS [facility]; Protocol Last Admin: 03/19/22 07:56 Dose: Not Given Lisinopril (Lisinopril 40 Mg Tablet) 40 mg PO DAILY [facility]; Protocol Last Admin: 03/19/22 09:25 Dose: 40 mg Omeprazole (Omeprazole 20 Mg Capsule.Dr) 20 mg PO BID@0630,1630 [facility] Last Admin: 03/19/22 06:03 Dose: 20 mg Pharmacy Consult (Consult Rx Perform Med Rec) 1 each MISCELLANE ONCE PRN PRN Reason: Consult order Sodium Chloride (0.9 % Sodium Chloride Flush 3 Ml Syringe) 3 ml IVFLUSH QSHIFT [facility] Last Admin: 03/19/22 09:24 Dose: 3 ml Home Medications Medication Instructions Recorded Confirmed Last Taken Type albuterol sulfate 90 mcg/actuation 2 puff inhalation Q4-6H PRN 03/18/22 03/18/22 Unknown History aerosol inhaler (ProAir HFA) Wheezing allopurinol 100 mg tablet 1 tab PO QAM 03/18/22 03/18/22 Unknown History aspirin 325 mg tablet,delayed 1 tab PO QAM 03/18/22 03/18/22 Unknown History release atorvastatin 80 mg tablet 1 tab PO BEDTIME 03/18/22 03/18/22 Unknown History cholecalciferol (vitamin D3) 25 1 cap PO QAM 03/18/22 03/18/22 Unknown History mcg (1,000 unit) capsule (Vitamin D3) docusate sodium 100 mg capsule 1 cap PO BID constipation 03/18/22 03/18/22 Unknown History ferrous sulfate 325 mg (65 mg 1 tab PO DAILY 03/18/22 03/18/22 Unknown History iron) tablet (FeroSul) fluoxetine 20 mg capsule 1 cap PO QAM 03/18/22 03/18/22 Unknown History lisinopril 40 mg tablet 1 tab PO QAM 03/18/22 03/18/22 Unknown History metoprolol tartrate 25 mg tablet 1 tab PO BID 03/18/22 03/18/22 Unknown History omeprazole 20 mg capsule,delayed 1 cap PO BID 03/18/22 03/18/22 Unknown History release Physical Exam Vital Signs: Vital Signs: Last Vital Signs Temp 98.6 F 03/19/22 07:59 Pulse 49 L 03/19/22 07:59 Resp 16 03/19/22 07:59 BP 153/87 H 03/19/22 07:59 Pulse Ox 96 03/19/22 07:59 O2 Del Method 03/19/22 07:59 BMI result Body Mass Index 34.8 Neuro: Other: she is alert and awake looking around spoke Zambian but did understand Malay and followed commands. In Zambian she was following commands and repeating. Visual balbuena seem to be full. Face seemed to be symmetrical. There was moderate right hemiparesis and also left hemiparesis with left extensor plantar. Results Labs CBC & Chem 7: 03/18/22 10:39 03/18/22 10:39 Labs: CT and CTA of brain and neck were reviewed. Moderate diffuse central and cortical cerebral atrophy and multiple bilateral chronic ischemic infarctions and microvascular ischemic changes were noted. Intracranial atherosclerotic stenosis was also noted especially in bilateral M1. Assessment and Plan (1) Intracranial atherosclerosis: Status: Acute (2) Cerebral infarction: Status: Acute 61 years old woman with underlying multifactorial at Alzheimer +vascular dementia presented with new onset of right hemiparesis with last time known well beyond treatment with intravenous tPA. Now she had bilateral weakness as she had previous left hemiparesis. Blood pressure was still high. Mainstay of management is anti-platelet agent statin and blood pressure management. In this regard I would recommend combination of baby aspirin and clopidogrel for couple of months and then discontinuing clopidogrel. Blood pressure should be better managed. Family should be educated about significant dementia resulting from at Alzheimer and strokes so that future management decisions are made accordingly. (3) Multifactorial dementia: Status: Acute (4) Multiple cerebral infarctions: Status: Acute (5) Alzheimer's dementia: Status: Acute Procedures Date of Service Date of Service: 03/19/22
--- NOTE | 2022-03-19 12:08 | P.DS_ITS ---
DS: Providers Provider Date of Service: 03/19/22 Date of admission: 03/18/22 12:39 Primary care physician: Marcia Morales MD Consults: 03/18/22 12:49 Consult to Neurology Routine Consulting Provider: Jessica Phelps Reason for consultation: new right side weakness DS: Diagnosis Discharge Diagnosis (1) Intracranial atherosclerosis: Status: Acute (2) Cerebral infarction: Status: Acute (3) Multifactorial dementia: Status: Acute (4) Multiple cerebral infarctions: Status: Acute (5) Alzheimer's dementia: Status: Acute DS: Summary Hospital Course Hospital Course: from initial hpi: This is a 61 year old female with a history of stroke and residual left-sided weakness, diabetes among others who was brought to the emergency department today with new onset of right-sided weakness this morning. She was in her usual state of health when she went to bed last night between 10:30-11 pm. When she woke up this morning, her daughter noticed that she wasn't using her arms to assist her into her wheelchair and she wasn't putting weight on her right leg either. She has a history of left side weakness from previous stroke but is able to move both extremities. She is primarily nonverbal and is wheelchair bound and her history was primarily obtained from her daughter at the bedside. In the ED, her ? Brain CT showed no acute intracranial pathology.CTA of head and neck ? Revealed extensive underlying microangiopathy and generalized cerebral volume loss but no proximal occlusion.? On my evaluation she was able to move both her right arm and right leg although right leg appeared somewhat more weak in comparison to left side. ? she was also noted to be bradycardic.? Blood pressure has remained stable.? Unable to assess for any symptoms although she appears comfortable, awake and alert at this time.? She will be admitted the hospital overnight for observation for evaluation of right side weakness. hsopital course: Patient was admitted for right-sided weakness, possibly due to acute CVA, CTA head and neck was negative. She was seen by neurology recommended adding Plavix for 1-2 months and continuing aspirin statin. For dysphagia she was seen by speech therapy who recommended pureed solids with thin liquids. Patient will be discharged home, will follow up outpatient for modified barium. For her bradycardia metoprolol is on hold. For hypertension she will continue lisinopril. For vascular dementia she is now at baseline. Time Spent with Patient Time attestation: Total time spent providing and/or coordinating discharge services: Discharge coordination time: Greater than 30 minutes Quality: Safe Use of Opioids Does Pt have an Active Cancer Diagnosis on the Problem List?: No Quality: Stroke Does the patient have a stroke diagnosis?: Yes Reason for No Anti-thrombotic at DC: N/A - Med Ordered Reason for No Anticoagulant at DC: N/A - Med Ordered Reason Not Initiating IV-Tpa: Not indicated Reason for No Anti-thrombotic by Day Two: N/A - Med Ordered Reason for No Statin at DC: N/A - Med Ordered Physical Exam Vital Signs: Vital Signs: Last Vital Signs Temp 98.6 F 03/19/22 07:59 Pulse 49 L 03/19/22 07:59 Resp 16 03/19/22 07:59 BP 153/87 H 03/19/22 07:59 Pulse Ox 96 03/19/22 07:59 O2 Del Method 03/19/22 07:59 BMI result Body Mass Index 34.8 Neuro: Other: she is alert and awake looking around spoke Slovak but did understand Polish and followed commands. In Slovak she was following commands and repeating. Visual balbuena seem to be full. Face seemed to be symmetrical. There was moderate right hemiparesis and also left hemiparesis with left extensor plantar. DS: Data Data Completed and Pending Labs on day of discharge: Laboratory Results - last 24 hr 03/18/22 03/18/22 03/18/22 12:23 15:23 21:17 POC Glucose 99 135 H Triglycerides Cholesterol LDL Cholesterol, Calc HDL Cholesterol COVID-19 ([facility]) Negative COVID-19 Clin Com See Note 03/19/22 03/19/22 05:55 07:18 POC Glucose 120 H Triglycerides 154 Cholesterol 133 LDL Cholesterol, Calc 70 HDL Cholesterol 33 COVID-19 ([facility]) COVID-19 Clin Com Discharge Plan Discharge Anticipated Discharge Date/Time: 03/19/22 12:02 Patient Disposition: Home Health Service Discharge Diagnosis: possible cva Referrals: Marcia Morales MD [Primary Care Provider] - 1 Week Discharge Medications: New clopidogrel [Plavix] 75 mg tablet 75 mg PO DAILY Qty: 30 0RF Continued ondansetron 4 mg tablet,disintegrating 4 mg PO Q6-8H PRN (Reason: nausea and vomiting) Qty: 7 0RF atorvastatin 80 mg tablet 1 tab PO BEDTIME allopurinol 100 mg tablet 1 tab PO QAM aspirin 325 mg tablet,delayed release (DR/EC) 1 tab PO QAM ferrous sulfate [FeroSul] 325 mg (65 mg iron) tablet 1 tab PO DAILY docusate sodium 100 mg capsule 1 cap PO BID omeprazole 20 mg capsule,delayed release(DR/EC) 1 cap PO BID albuterol sulfate [ProAir HFA] 90 mcg/actuation HFA aerosol inhaler 2 puff INHALATION Q4-6H PRN (Reason: Wheezing) lisinopril 40 mg tablet 1 tab PO QAM fluoxetine 20 mg capsule 1 cap PO QAM cholecalciferol (vitamin D3) [Vitamin D3] 25 mcg (1,000 unit) capsule 1 cap PO QAM Discontinued metoprolol tartrate 25 mg tablet 1 tab PO BID Discharge Orders: Discharge Order (Routine); Ordered 03/19/22 Ordered By: Alan Tay Diet: pureed Activity on Discharge: As tolerated Stand Alone Forms: Patient Portal Discharge page Care Plan Goals: mange advanced dementia and cvas Health Concerns: advanced dementia, cvas Plan of Treatment: add plavix for about 1 -2 months, diet should be pureed with thin liquids Assessment: see above
--- NOTE | 2022-03-19 12:08 | MHC.CM.PN ---
pt dcd home no skilled services ordered by
--- NOTE | 2022-03-19 12:30 | W.MHC.F2F ---
Service Date Service Date: 03/19/22 Encounter Date of encounter: 03/19/22 Reasons for Services Signs and symptoms assessed: weakness Reason for custodial: medication management, medication treatment and teach disease management Homebound: Leaving the home is medically contraindicated at this time without the asist of a device and/or another person due th the listed conditions above and below. Reason homebound: unsteady gait / fall risk Certification: Based on the above findings, I certify that this patient is confined to the home and needs intermittent custodial care, physical therapy and/or speech therapy, or continues to need occupational therapy. The patient is under my care, and I have initiated the establishment of the plan of care. The patient will be followed by a physician who will periodically review the plan of care.
[2022-03-19 13:24] LABS: Glucose, Whole Blood 97 mg/dL (60-115)
--- NOTE | 2022-03-19 14:09 | MHC.CM.PN ---
pt to be dcd home with cherie
--- NOTE | 2022-03-19 14:18 | MHC.SL.SWA ---
Speech Pathologist Impression: Oropharyngeal dysphagia Risk of Aspiration Due to: Neurological Condition Dysphasia Diet Status: Upgrade liquids Liquid Consistency and Strategies for Safe Swallow: Liquid Intake Recommendation: Thin Liquid Intake Strategies: Small Sips No Straws Solid Food Consistency: Dietary Recommendations: Pureed (NDD1) Additional Modifications to Solid Foods: Recommend continue speech therapy for dysphagia w/ VNA, repeat-MBSS. MD notified of recommendation. Oral Medication Intake: Crushed with Puree Please contact the pharmacy regarding appropriate crushable or liquid drug formulations that are available whenever modified delivery is recommended. Compensatory Strategies and Precautions to be Taken for Safe Swallow: Sitting Upright (90 deg) No Straw Small Bites and Sips Rate of Ingestion Change Oral Check Supervision While Eating and Drinking for Safe Swallow: Total Assistance (1:1) Foods to Avoid: Mixed consistencies. Swallowing Recommended Treatments: Compens. Strategy Educat. Recommendation for Speech: Inpatient Speech Therapy Speech Therapy w/ VNA Outpatient MBSS Machine Burrer Clinican/Clinical Fellow: Yes: Delia Treadwell Supervisory Statement: I have reviewed and agree with the student/clinical fellow's documentation: N/A Speech Language Pathologist: Unique Gold M.A., CCC-PONY ROUGHER
[2022-03-19 16:34] LABS: Glucose, Whole Blood 126 mg/dL (60-115)
== END 2022-03-19 20:00 | disposition home health service (06) | DRG 45 ==
LOC: HO.ED 11:54 → HO.EDOVER 20:10
PROVIDERS: Admitting Provider Physician Assistant Medical; Emergency Provider Emergency Medicine; PCP Family Medicine; Visit Provider Internal Medicine
DX: I63.9 Cerebral infarction, unspecified (principal); R29.703 NIHSS score 3; I67.2 Cerebral atherosclerosis; R53.1 Weakness; G30.9 Alzheimer's disease, unspecified; F01.50 Vascular dementia, unspecified severity, without behavioral disturbance, psychotic disturbance, mood disturbance, and anxiety; I69.354 Hemiplegia and hemiparesis following cerebral infarction affecting left non-dominant side; I69.320 Aphasia following cerebral infarction; I69.391 Dysphagia following cerebral infarction; R13.12 Dysphagia, oropharyngeal phase; Z20.822 Contact with and (suspected) exposure to COVID-19; I10 Essential (primary) hypertension; E11.9 Type 2 diabetes mellitus without complications; E78.5 Hyperlipidemia, unspecified; J44.9 Chronic obstructive pulmonary disease, unspecified; R00.1 Bradycardia, unspecified; Z99.3 Dependence on wheelchair; Z79.82 Long term (current) use of aspirin; Z79.899 Other long term (current) drug therapy; Z79.02 Long term (current) use of antithrombotics/antiplatelets; Z79.4 Long term (current) use of insulin
CPT/HCPCS: 36415; 70450; 70496; 70498; 80048; 80061; 82550; 82947; 84484; 85025; 85610; 85730; 87635; 92526; 92610; 93005; 96372; 96374; 97163; 97167; 97530; 99219; 99285; J1650; Q9967

== ENCOUNTER 2022-09-09 21:37 | Inpatient (IN) | payer MEDICAID, SELFPAY ==
--- NOTE | 2022-09-09 | ECG_ITS ---
Test Reason : FEVER Blood Pressure : / mmHG Vent. Rate : 092 BPM Atrial Rate : 092 BPM P-R Int : 140 ms QRS Dur : 154 ms QT Int : 428 ms P-R-T Axes : -10 -18 103 degrees QTc Int : 529 ms Normal sinus rhythm Left bundle branch block Abnormal ECG When compared with ECG of 18-MAR-2022 10:21, Vent. rate has increased BY 37 BPM Left bundle branch block is now Present Referred By: Sotero Ramos Electronically Signed By:JULIANNE FORTUNE MD
--- NOTE | ~2022-09-09 | XR_ITS ---
EXAMINATION: XR CHEST CLINICAL INFORMATION: Question aspiration COMPARISON: 10/14/2012 TECHNIQUE: Frontal view of the chest was obtained. FINDINGS: Lung volumes are symmetric. No focal consolidation is seen. No evidence of pneumothorax, pleural effusion, or pulmonary edema. Cardiac silhouette appears prominent. No acute osseous findings are seen. XR/XR chest 1V IMPRESSION: No focal consolidation identified. Prominent cardiac silhouette.
[2022-09-09 21:53] VITALS: BP 168/90; PULSE 74; O2SAT 94
[2022-09-09 22:06] VITALS: BP 162/83; PULSE 86; RESP 20; TEMP 38.9; O2SAT 92
[2022-09-09 22:10] VITALS: BP 162/83; PULSE 86; RESP 20; TEMP 38.9; O2SAT 93; BMI 32.9
--- NOTE | 2022-09-09 22:22 | ED_ITS ---
HPI - General Adult General Chief complaint: General Medical Stated complaint: n/v and weakness Time Seen by Provider: 09/09/22 22:15 Source: family Mode of arrival: EMS Limitations: no limitations and altered mental status History of Present Illness HPI narrative: Patient is 62 years old with history of dementia CVA nonambulatory brought by her daughter for sudden onset of cold sweats followed by vomiting 2 times at home and 2 times in the ER. Patient did not complain of any pain but according to daughter sometimes he does not tell about the pain no diarrhea no fever no chills no history of coronary artery disease Related Data Home Medications Medication Instructions Recorded Confirmed albuterol sulfate 90 mcg/actuation 2 puff inhalation Q4-6H PRN 03/18/22 03/18/22 aerosol inhaler (ProAir HFA) Wheezing allopurinol 100 mg tablet 1 tab PO QAM 03/18/22 03/18/22 aspirin 325 mg tablet,delayed 1 tab PO QAM 03/18/22 03/18/22 release atorvastatin 80 mg tablet 1 tab PO BEDTIME 03/18/22 03/18/22 cholecalciferol (vitamin D3) 25 1 cap PO QAM 03/18/22 03/18/22 mcg (1,000 unit) capsule (Vitamin D3) docusate sodium 100 mg capsule 1 cap PO BID constipation 03/18/22 03/18/22 ferrous sulfate 325 mg (65 mg 1 tab PO DAILY 03/18/22 03/18/22 iron) tablet (FeroSul) fluoxetine 20 mg capsule 1 cap PO QAM 03/18/22 03/18/22 lisinopril 40 mg tablet 1 tab PO QAM 03/18/22 03/18/22 omeprazole 20 mg capsule,delayed 1 cap PO BID 03/18/22 03/18/22 release Previous Rx's Medication Instructions Recorded ondansetron 4 mg disintegrating 4 mg PO Q6-8H PRN nausea and 01/22/22 tablet vomiting #7 tabs clopidogrel 75 mg tablet (Plavix) 75 mg PO DAILY #28 tabs 03/19/22 Allergies Allergy/AdvReac Type Severity Reaction Status Date / Time No Known Allergies Allergy Unverified 12/27/19 15:52 [No Known Allergies*] Review of Systems Review of Systems: Yes all other systems are reviewed and are negative PMFSH Past Medical History Medical History Asthma Diabetes HLD (hyperlipidemia) HTN (hypertension) Stroke Surgical History History of cholecystectomy Family History Family History Other Diabetes Social History Social History Household Members: Children Alcohol intake: unknown Patient Tobacco Use Status: Never used Tobacco Smoked in Last 30 Days: No Use of substances other than those prescribed or required for medical reasons: No Advance Directives: No Advance Directives Information Provided: Yes Nutrition Risks: Difficulty chewing and Difficulty swallowing Physical Exam ED Vital Signs: Vital Signs - 24 hr 09/09/22 22:06 09/09/22 22:10 09/09/22 23:03 Temperature 102.1 F H 102.1 F H Pulse Rate 86 86 90 Respiratory Rate 20 20 19 Blood Pressure 162/83 H 162/83 H 142/87 H Pulse Oximetry 92 93 92 Oxygen Delivery Method Room Air Room Air Room Air 09/09/22 23:39 Temperature 100.8 F H Pulse Rate 88 Respiratory Rate 18 Blood Pressure 132/69 Pulse Oximetry 92 Oxygen Delivery Method Room Air BMI result Body Mass Index 32.9 Appearance: Alert. And awake. No acute distress. Eyes: PERRLA, No Nystagmus ENT: Pharynx normal. Oral Mucosa moist Neck: Normal inspection. Neck supple. CVS: Normal heart rate and rhythm. Pulses normal. Respiratory: No respiratory distress. Equal air entry bilateral, no wheezing/rales/rhonchi Abdomen: Soft and nontender. Bowel sounds are present, no mass palpable, no CVA tenderness Skin: Skin warm and dry. Normal skin color. Normal skin turgor. Extremities: No lower extremity edema. No calf tenderness Neuro: Oriented X 3. Residual weakness R>L. Medications Administered Generic Name Dose Route Start Last Admin Trade Name Freq PRN Reason Stop Dose Admin Metoprolol Tartrate 12.5 mg 09/10/22 00:55 09/10/22 01:36 Metoprolol Tartrate 12.5 Mg Halftab PO 12.5 mg BID KAROL Administration Protocol Discontinued Medications Generic Name Dose Route Start Last Admin Trade Name Freq PRN Reason Stop Dose Admin Heparin Sodium (Porcine) 5,000 unit 09/09/22 23:41 09/10/22 00:14 Heparin Sodium,Porcine 5,000 Unit/Ml Vial IVPUSH 09/09/22 23:42 5,000 unit ONCE ONE Administration Sodium Chloride 1,000 mls @ 999 mls/hr 09/09/22 22:25 09/10/22 00:10 Ns IV 09/09/22 23:25 Infused .Q1H1M ONE Infusion Ceftriaxone Sodium 1 gm/ 50 mls @ 100 mls/hr 09/10/22 01:21 09/10/22 01:48 Sodium Chloride IV 09/10/22 01:50 Infused ONCE ONE Infusion Ondansetron HCl 4 mg 09/09/22 22:26 09/09/22 22:52 Ondansetron Hcl 4 Mg/2 Ml Vial IVPUSH 09/09/22 22:27 4 mg ONCE ONE Administration Medical Decision Making Medical Decision Making [facility] Narrative: Patient with acute onset of diaphoresis with nausea vomiting workup showed new onset left bundle-branch block which was not seen in 04/01 EKG and previous EKGs had elevated troponin, patient is poor historian unable to get a detailed history no chest pain complaint to the family patient is bedbound with multiple strokes and dementia case discussed Dr. Gomez biological science technician fish and the family decided to have conservative treatment started on heparin drip. Will admit patient to tele floor patient had temperature of 102.1 degrees in the ER likely UTI awaiting urine sample, which shows UTI Differential Diagnosis Acute NJ/sepsis/UTI/pneumonia Consult Healthcare Provider Management of the patient was discussed with: Hospitalist Lab Data [facility] Lab Attestation statement: I reviewed the patient's lab results. 09/09/22 22:45 09/09/22 22:45 Labs: Lab Results 09/09/22 09/09/22 09/09/22 Range/Units 22:45 22:46 22:55 WBC 14.7 H (4.8-10.8) X10*3/uL RBC 4.51 (4.20-5.50) X10*6/uL Hgb 13.5 (12.0-16.0) g/dl Hct 40.4 (37.0-47.0) % MCV 89.6 (80.0-98.0) fL MCH 29.9 (27.0-33.0) pg MCHC 33.4 (31.0-35.0) g/dl RDW 12.9 (11.0-16.0) % Plt Count 183 (160-400) X10*3/uL MPV 9.8 (9.4-12.3) fL Absolute Nucleated RBC 0.000 (0.0-0.012) X10*3/uL Nucleated RBC % (auto) 0.0 (0.0-0.2) /100WBC PT (10.0-13.1) SEC INR (0.9-1.1) APTT (26.0-36.4) SEC Sodium (135-145) mmol/L Potassium (3.3-5.1) mmol/L Chloride (96-108) mmol/L Carbon Dioxide (22-29) mmol/L Anion Gap (12-20) BUN (9-16) mg/dL Creatinine (0.5-1.4) mg/dL Estim Creat Clear Calc Estimated GFR Random Glucose (60-115) mg/dL Lactic Acid 1.0 (0.5-2.0) mmol/L Calcium (8.4-10.2) mg/dL Total Bilirubin (0.0-1.0) mg/dL AST (5-31) U/L ALT (0-31) U/L Alkaline Phosphatase (39-117) U/L Troponin I High Sens 1427.0 H* (<3.5-17.0) ng/L Total Protein (6.5-8.0) g/dL Albumin (3.5-5.0) g/dL Lipase (8-78) U/L 09/09/22 09/10/22 09/10/22 Range/Units 23:18 00:01 00:01 WBC (4.8-10.8) X10*3/uL RBC (4.20-5.50) X10*6/uL Hgb (12.0-16.0) g/dl Hct (37.0-47.0) % MCV (80.0-98.0) fL MCH (27.0-33.0) pg MCHC (31.0-35.0) g/dl RDW (11.0-16.0) % Plt Count (160-400) X10*3/uL MPV (9.4-12.3) fL Absolute Nucleated RBC (0.0-0.012) X10*3/uL Nucleated RBC % (auto) (0.0-0.2) /100WBC PT 13.4 H (10.0-13.1) SEC INR 1.2 H (0.9-1.1) APTT 32.4 (26.0-36.4) SEC Sodium 143 (135-145) mmol/L Potassium 2.7 L D (3.3-5.1) mmol/L Chloride 107 (96-108) mmol/L Carbon Dioxide 25 (22-29) mmol/L Anion Gap 14 (12-20) BUN 14 (9-16) mg/dL Creatinine 0.87 (0.5-1.4) mg/dL Estim Creat Clear Calc 67.2 Estimated GFR > 60 Random Glucose 145 H (60-115) mg/dL Lactic Acid (0.5-2.0) mmol/L Calcium 8.4 (8.4-10.2) mg/dL Total Bilirubin 1.0 (0.0-1.0) mg/dL AST 45 H (5-31) U/L ALT 48 H (0-31) U/L Alkaline Phosphatase 115 (39-117) U/L Troponin I High Sens (<3.5-17.0) ng/L Total Protein 5.6 L (6.5-8.0) g/dL Albumin 3.3 L (3.5-5.0) g/dL Lipase 31 (8-78) U/L Discharge Plan Discharge Clinical Impression: New onset left bundle branch block (LBBB), Non-ST elevated myocardial infarction (non-STEMI) Patient Disposition: Admitted As Inpatient
--- NOTE | 2022-09-09 22:27 | ECG_ITS ---
Test Reason : REPEAT Blood Pressure : / mmHG Vent. Rate : 086 BPM Atrial Rate : 086 BPM P-R Int : 138 ms QRS Dur : 148 ms QT Int : 466 ms P-R-T Axes : 013 -09 112 degrees QTc Int : 557 ms Normal sinus rhythm Left bundle branch block Abnormal ECG When compared with ECG of 09-SEP-2022 22:13, No significant change was found Referred By: Sotero Ramos Electronically Signed By:JULIANNE FORTUNE MD
[2022-09-09] MEDS: 0.9 % Sodium Chloride 1,000 ML 999 ML IV (22:52)
[2022-09-09] MEDS: ondansetron HCL 4 MG/2 ML VIAL IVPUSH (22:52)
[2022-09-09 23:00] LABS: Hematocrit 40.4 % (37.0-47.0); Hemoglobin 13.5 g/dl (12.0-16.0); Mean Corpuscular HGB Conc 33.4 g/dl (31.0-35.0); Mean Corpuscular Hemoglobin 29.9 pg (27.0-33.0); Mean Corpuscular Volume 89.6 fL (80.0-98.0); Mean Platelet Volume 9.8 fL (9.4-12.3); Platelet Count 183 X10*3/uL (160-400); Red Blood Count 4.51 X10*6/uL (4.20-5.50); Red Cell Distribution Width 12.9 % (11.0-16.0); White Blood Count 14.7 X10*3/uL (4.8-10.8)
[2022-09-09 23:03] VITALS: BP 142/87; PULSE 90; RESP 19; O2SAT 92
--- NOTE | 2022-09-09 23:03 | PC.NURSE ---
pt repositioned for comfort, labs collected and sent, Iv placed, Medicated per mar. Will continue to monitor.
[2022-09-09 23:39] VITALS: BP 132/69; PULSE 88; RESP 18; TEMP 38.2; O2SAT 92
--- NOTE | 2022-09-09 23:52 | PC.NURSE ---
critical trop, Dr Pepper henry, repeat EKG, second line placed, labs sent and collected.
[2022-09-09 23:59] LABS: Alanine Aminotransferase 48 U/L (0-31); Albumin Level 3.3 g/dL (3.5-5.0); Alkaline Phosphatase 115 U/L (39-117); Anion Gap 14 (12-20); Aspartate Amino Transferase 45 U/L (5-31); Blood Urea Nitrogen 14 mg/dL (9-16); Calcium 8.4 mg/dL (8.4-10.2); Carbon Dioxide 25 mmol/L (22-29); Chloride 107 mmol/L (96-108); Creatinine Clr Calc Pharmacy 67.2; Estimated Glomerular Filt Rate > 60; Glucose Random 145 mg/dL (60-115); Lipase 31 U/L (8-78); Potassium 2.7 mmol/L (3.3-5.1); Sodium 143 mmol/L (135-145); Total Protein 5.6 g/dL (6.5-8.0)
[2022-09-10] VITALS (10 sets, daily range): BP systolic 103–140; BP diastolic 55–81; PULSE 62–101; RESP 12–20; TEMP 36.2–38; O2SAT 94–97; BMI 32.9
[2022-09-10 00:13] LABS: INTERNATIONAL NORM RATIO 1.2 (0.9-1.1); Prothrombin Time 13.4 SEC (10.0-13.1)
[2022-09-10] MEDS: Heparin Sodium,Porcine 5,000 UNIT/ML VIAL 5000 UNIT IVPUSH (00:14)
[2022-09-10 00:16] LABS: Partial Thromboplastin Time 32.4 SEC (26.0-36.4)
--- NOTE | 2022-09-10 00:53 | PM.IMHP ---
History of Present Illness Date of Service: 09/10/22 Chief Complaint: nausea, vomiting 62-year-old with history of Alzheimer's dementia, multiple cerebral infarcts nonverbal at baseline, HLD, is brought in to the hospital by her daughter for evaluation of nausea and multiple episodes of vomiting and diaphoresis. Patient's daughter reports that all the sudden and mother started sweating, having multiple episodes of nausea vomiting, therefore she called the ambulance and brought her mother into the hospital. She had further multiple episodes of vomiting while in the ED. daughter reports that she does verbalize through facial cues if she has any pain but she did not notice any such cues from her mother, when asking her patient denies any pain in the chest, abdomen, and no urinary symptoms. No lower extremity edema, no trouble breathing. Unable to get complete review of system due to patient's dementia On her arrival To the ED patient high to have a temp of 102.1 degrees, labs are significant for WBC count of 14.7, potassium of 2.7, magnesium of 1.3, troponin of 1427 EKG showed new left bundle branch block, case was discussed with Cardiology, given patient's past medical history as well as her advanced dementia patient not a candidate for catheterization therefore will be managed medically a started on heparin Chest x-ray negative, UA pending Review of Systems Review of Systems: Yes all other systems are reviewed and are negative [facility] Medical History Asthma Diabetes HLD (hyperlipidemia) HTN (hypertension) Stroke Family History Other Diabetes Surgical History History of cholecystectomy Social History Household Members: Children Alcohol intake: unknown Patient Tobacco Use Status: Never used Tobacco Smoked in Last 30 Days: No Use of substances other than those prescribed or required for medical reasons: No Advance Directives: No Advance Directives Information Provided: Yes Nutrition Risks: Difficulty chewing and Difficulty swallowing Meds Allergies Allergy/AdvReac Type Severity Reaction Status Date / Time No Known Allergies Allergy Unverified 12/27/19 15:52 [No Known Allergies*] Home Medications Medication Instructions Recorded Confirmed Last Taken Type albuterol sulfate 90 mcg/actuation 2 puff inhalation Q4-6H PRN 03/18/22 03/18/22 Unknown History aerosol inhaler (ProAir HFA) Wheezing allopurinol 100 mg tablet 1 tab PO QAM 03/18/22 09/10/22 Unknown History atorvastatin 80 mg tablet 1 tab PO BEDTIME 03/18/22 09/10/22 Unknown History cholecalciferol (vitamin D3) 25 1 cap PO QAM 03/18/22 09/10/22 Unknown History mcg (1,000 unit) capsule (Vitamin D3) docusate sodium 100 mg capsule 1 cap PO BID constipation 03/18/22 09/10/22 Unknown History ferrous sulfate 325 mg (65 mg 1 tab PO DAILY 03/18/22 09/10/22 Unknown History iron) tablet (FeroSul) fluoxetine 20 mg capsule 1 cap PO QAM 03/18/22 09/10/22 Unknown History lisinopril 40 mg tablet 1 tab PO QAM 03/18/22 09/10/22 Unknown History omeprazole 20 mg capsule,delayed 1 cap PO BID 03/18/22 09/10/22 Unknown History release aspirin 81 mg tablet,delayed 81 mg PO QAM 09/10/22 09/10/22 Unknown History release hydralazine 10 mg tablet 10 mg PO QID blood pressure 09/10/22 09/10/22 Unknown History Physical Exam Vital Signs and Narrative: Vital Signs: Last Vital Signs Temp 100.8 F H 09/09/22 23:39 Pulse 88 09/09/22 23:39 Resp 18 09/09/22 23:39 BP 132/69 09/09/22 23:39 Pulse Ox 92 09/09/22 23:39 O2 Del Method Room Air 09/09/22 23:39 BMI result Body Mass Index 32.9 Const: Other: Patient laying in bed, staring out at me but not answering my questions, does not appear in distress General: cooperative and no acute distress Eyes: General: appearance normal, both eyes and all related structures Resp: Effort & Inspection: normal respiratory effort, able to speak in complete sentences and abnormal respiratory pattern Auscultation: clear to auscultation bilaterally Cardio: Rate: regular rate Rhythm: regular rhythm GI: Palpation (GI): Soft to palpation Auscultation: normal bowel sounds Skin: General skin exam: no rashes or lesions noted Extrem: General: Yes normal to inspection and Yes no pedal edema Results Labs 09/09/22 22:45 09/09/22 23:18 Labs: Laboratory Results - last 24 hr 09/09/22 09/09/22 09/09/22 22:45 22:46 22:55 MCV 89.6 MCH 29.9 MCHC 33.4 RDW 12.9 Plt Count 183 MPV 9.8 Absolute Nucleated RBC 0.000 Nucleated RBC % (auto) 0.0 PT INR APTT Anion Gap Estim Creat Clear Calc Estimated GFR Random Glucose Lactic Acid 1.0 Calcium Total Bilirubin AST ALT Alkaline Phosphatase Troponin I High Sens 1427.0 H* Total Protein Albumin Lipase 09/09/22 09/10/22 09/10/22 23:18 00:01 00:01 MCV MCH MCHC RDW Plt Count MPV Absolute Nucleated RBC Nucleated RBC % (auto) PT 13.4 H INR 1.2 H APTT 32.4 Anion Gap 14 Estim Creat Clear Calc 67.2 Estimated GFR > 60 Random Glucose 145 H Lactic Acid Calcium 8.4 Total Bilirubin 1.0 AST 45 H ALT 48 H Alkaline Phosphatase 115 Troponin I High Sens Total Protein 5.6 L Albumin 3.3 L Lipase 31 Imaging Radiologist's Impressions: Impressions Chest X-Ray 09/09/22 23:03 IMPRESSION: No focal consolidation identified. Prominent cardiac silhouette. Assessment and Plan (1) New onset left bundle branch block (LBBB): Status: Acute (2) Non-ST elevated myocardial infarction (non-STEMI): Status: Acute (3) UTI (urinary tract infection): Status: Acute (4) Sepsis: Status: Acute Plan 62-year-old female with past medical history of Alzheimer's dementia, multiple CVA, hypertension, presents the hospital with nausea vomiting, found to have ACS # acute coronary syndrome - with EKG changes of new LBBB, as well as significantly elevated troponin - unable to assess for symptoms as patient is nonverbal at baseline - after discussion with Cardiology patient will be managed medically, heparin drip, continue aspirin Plavix which are her home medications, statin, will add metoprolol 12.5 b.i.d. - echocardiogram - cardiology on consult # new LBBB - likely secondary to above - not a catheterization candidate - continue optimal medical management # sepsis - present on arrival - likely secondary to UTI - febrile, leukocytosis, normal lactic acid - hemodynamically stable - will treat with IV antibiotics - follow cultures # UTI - patient incontinent at baseline - will treat with IV antibiotics - follow cultures # hypertension - stable - continue antihypertensives DVT prophylaxis: Heparin ggt Given patient's need for further management of ACS patient will require minimum 2 nights inpatient hospital stay for further management and monitoring Time Spent With Patient Time: Total time managing care of this patient today ____ minutes. Quality Stroke Does the patient have a stroke diagnosis?: No VTE Prior VTE?: No VTE Risk Level:: Medical - moderate - high VTE Device Contraindication: Treatment Not Indicated VTE Drug Contraindication: N/A - Med Ordered
[2022-09-10 01:35] LABS: Appearance Urine Cloudy; Color Urine Yellow; Glucose Urine UA Negative (Negative); Leukocyte Esterase Urine Large (3+) (Negative); Nitrite Urine Positive (Negative); PH 5.5 (5.0-9.0); Specific Gravity - Urine 1.015 (1.005-1.025); UMIC TRIGGER UACC YES; Urine Blood Moderate (2+) (Negative); Urine Ketones Trace mg/dL (Negative); Urine Protein 30 (1+) mg/dL (Neg-Trace)
[2022-09-10] MEDS: cefTRIAXone sodium 1 GM in 0.9 % Sodium Chloride 50 ML IV (01:35)
[2022-09-10] MEDS: Metoprolol Tartrate 12.5 MG HALFTAB PO ×3 (01:36→21:45)
[2022-09-10 01:38] LABS: Bacteria Urine 4+ (None Seen); Hyaline Casts Urine 0-2 /LPF (0-2); Squamous Epithelial Cell Urine 0-2 /HPF (0-2); UACC Culture Trigger YES; WBC Urine >50 /HPF (0-5)
[2022-09-10] MEDS: Heparin Sodium,Porcine/1/2NS 25,000 UNIT/250 ML IV.SOLN 9.8 UNIT IVCONT (01:50)
--- NOTE | 2022-09-10 01:50 | PC.NURSE ---
Pt a&o at baseline. Pt's daughter at bedside. Pt started on Hep drip and potassium. No signs of distress. Will continue to monitor.
[2022-09-10] MEDS: Potassium Chloride/H20 10 MEQ/100 ML PIGGYBACK 100 MEQ IV ×2 (01:53→03:42)
[2022-09-10 02:02] LABS: Magnesium 1.3 mg/dL (1.6-2.6)
[2022-09-10 02:08] LABS: Hematocrit 38.2 % (37.0-47.0); Hemoglobin 12.6 g/dl (12.0-16.0); Mean Corpuscular Hemoglobin 29.6 pg (27.0-33.0); Mean Corpuscular Volume 89.9 fL (80.0-98.0); Mean Platelet Volume 9.7 fL (9.4-12.3); Platelet Count 194 X10*3/uL (160-400); Red Blood Count 4.25 X10*6/uL (4.20-5.50); Red Cell Distribution Width 12.9 % (11.0-16.0); White Blood Count 18.6 X10*3/uL (4.8-10.8)
[2022-09-10 02:17] LABS: PTT Heparin Drip 93.6 SEC (53-77.9)
--- NOTE | 2022-09-10 02:48 | PC.NURSE ---
Med Req completed.
[2022-09-10] MEDS: Magnesium Sulfate/H2O 2 GM/50 ML PIGGYBACK IV (02:58)
--- NOTE | 2022-09-10 03:50 | PC.NURSE ---
Mag completed and Pt started on 2 bag of potassium. Pt's daughter remains at bedside. Will continue to monitor.
--- NOTE | 2022-09-10 06:48 | PC.NURSE ---
Pt sleeping/resting at the bedside in no apparent distress. Heparin running on the right hand at 12u/kg/hr as ordered. No complications noted. Next PTT-HD due at 0800. VSS. Will continue to monitor.
--- NOTE | 2022-09-10 07:00 | CA_ITS ---
Transthoracic Echocardiogram Patient (Last, First, Middle): Aislinn Major, Gender: Female Date of : 1960 Age: 62 Procedure Date: 09/10/2022 Procedure Type: Transthoracic Echocardiogram Location: ER Height: 157.48 cm Weight: 81.65 kg BSA: 1.83 m2 Heart Rate: bpm BP: 109 / 55 mmHg Policy Cancellation Clerk: Referring MD: Parag Moreira MD Oliving Machine Operator: Fernando Gomez MD Symptoms: ACS Study Quality: Fair/Contrast ECG Rhythm: Sinus Conclusions: - 1. Severe LV systolic dysfunction with LVEF of 25-30% with regional wall motion abnormality with impaired relaxation filling pattern and elevated filling pressures 2. Normal cardiac valvular Dopplers 3. No gross pericardial effusion Findings Procedure Information Contrast agent, definity, is being given per protocol without apparent complications. Left Ventricle Normal left ventricular cavity size. There is mildly increased left ventricular wall thickness. The left ventricular systolic function is severely decreased. The visually estimated ejection fraction is between 25 30%. Spectral Doppler is indicative of an impaired relaxation filling pattern. Elevated filling pressures. E/E prime ratio is >15, consistent with elevated filling pressures. Wall Motion Rest Echo Findings The entire septum, the apex, apical anterior, and mid anterior segments are akinetic. All other scored wall segments showed normal motion. Right Ventricle The right ventricle was not well visualized. Atria The left atrium is likely dilated. Interatrial shunt cannot be excluded. The right atrium was not well visualized. Aortic Valve The aortic valve structure and function is likely normal. There is no aortic valve stenosis. There is no aortic valve regurgitation. Mitral Valve Normal mitral valve structure and function. There is trace mitral valve regurgitation. There is no mitral valve stenosis. Pulmonic Valve The pulmonic valve was not well visualized. Tricuspid Valve Likely normal tricuspid valve structure and function. Tricuspid regurgitation envelope is inadequate for calculation of right ventricular systolic pressure. Normal right atrial pressure. Great Vessels All visible segments of the aorta are normal in size. The pulmonary artery was not well visualized. Venous The inferior vena cava is normal in size and collapses greater than 50% with inspiration. Pericardium/Pleural There is no evidence of pericardial effusion. Prior Study Comparison no previous study in the last 5 years for comparison Measurements 2D Linear Measurements IVSd: 1.22 0.6-0.9/0.6-1.0 cm LVIDd: 4.89 3.9-5.3/4.2-5.9 cm LVIDd Index: 2.67 2.4-3.2/2.2-3.1 cm/m2 LVIDs: 3.80 2.0-3.6 cm LVPWd: 1.26 0.7-1.1 cm Ao Root: 2.80 2.1-3.5 cm LA Diam: 3.70 2.7-3.8/3.0-4.0 cm LAIDs Index: 2.02 1.5-2.3 cm/m2 LV Mass: 294.72 67-162/88-224 g LV Mass Index: 161.05 43-95/49-115 g/m2 LVOT Diam: 2.00 3.0+(-)1.3 cm 2D Systolic Function EF 4C: 33.50 >55% EF 2C: 22.90 >55% EF BiP: 26.40 >55% Mitral Valve MV Pk E: 0.61 MV PK A: 0.77 MV Decel Time: 136.00 E/A: 0.80 E'Lateral: 3.37 E'Medial: 4.03 E/E' Med: 15.10 E/E' Lat: 18.00 PHT: 40.00 MVA PHT: 5.50 Decel Thomas: 4.46 Aortic Valve AoV Pk José Luis: 1.43 AoV Mn José Luis: 0.90 AoV VTI: 0.30 AoV Pk Grad: 8.00 Aov Mn Grad: 4.00 ADALBERTO Cont.VTI: 1.76 LVOT LVOT Pk José Luis: 0.86 LVOT Mn José Luis: 0.56 LVOT VTI: 0.17 LVOT Pk Grad: 3.00 LVOT Mn Grad: 2.00 LVOT Diam: 2.00 LVOT Area: 3.14 Diastolic Function MV Pk E: 0.61 MV Pk A: 0.77 E/A: 0.80 E'Medial: 4.03 E/E' Med: 15.10 E' Laterial: 3.37 E/E' Lat: 18.00 Right Ventricle TAPSE (mm): 20.40 TVS' José Luis: 9.57 Tricuspid Valve TR Pk José Luis: 1.90 TR Pk Grad: 14.00 RA Press: 3.00 Great Vessels Aorta Ao Root-2D: 2.80 2.0-3.7 cm Ao Asc: 3.10 2.1-3.4 cm Pulmonary Valve PV Pk José Luis: 1.06 Peak PV Grad: 4.00 Updated in Other Vendor System with Status of Final Fernando Gomez MD electronically signed on 09/10/2022 3:31:08 PM with status of Final
--- NOTE | 2022-09-10 07:37 | PHA.MEDREC ---
Pharmacy Consult ? Medication Reconciliation Pharmacy has completed the medication reconciliation. Spoke to patient's daughter to confirm meds.
[2022-09-10] MEDS: Piperacillin Sodium/Tazobactam 4.5 GM in 0.9 % Sodium Chloride 100 ML IV ×3 (07:56→21:37)
[2022-09-10] MEDS: Lactated Ringers 1,000 ML 100 ML IVCONT ×2 (07:59→21:37)
[2022-09-10] MEDS: 0.9 % Sodium Chloride Flush 3 ML SYRINGE IVFLUSH ×2 (08:00→23:54)
[2022-09-10 08:12] LABS: PTT Heparin Drip 114.1 SEC (53-77.9)
[2022-09-10 08:37] LABS: Alanine Aminotransferase 42 U/L (0-31); Albumin Level 3.3 g/dL (3.5-5.0); Anion Gap 14 (12-20); Calcium 8.6 mg/dL (8.4-10.2); Carbon Dioxide 24 mmol/L (22-29); Chloride 108 mmol/L (96-108); Glucose Random 110 mg/dL (60-115); Potassium 3.3 mmol/L (3.3-5.1); Sodium 143 mmol/L (135-145); Total Protein 5.7 g/dL (6.5-8.0)
--- NOTE | 2022-09-10 09:06 | PC.NURSE ---
heparin drip paused per protocol, repeat ptt to be drawn approx [id number]
[2022-09-10] MEDS: Potassium Chloride Packet 20 MEQ PACKET 40 MEQ PO (09:16)
[2022-09-10] MEDS: Omeprazole 20 MG CAPSULE.DR PO ×2 (09:16→17:20)
[2022-09-10] MEDS: lisinopriL 40 MG TABLET PO (09:16)
[2022-09-10] MEDS: Docusate Sodium 100 MG CAPSULE PO ×2 (09:16→21:45)
[2022-09-10] MEDS: FLUoxetine HCl 20 MG CAPSULE PO (09:16)
[2022-09-10] MEDS: Clopidogrel Bisulfate 75 MG TABLET PO (09:17)
[2022-09-10] MEDS: allopurinoL 100 MG TABLET PO (09:17)
[2022-09-10] MEDS: Ferrous Sulfate 324 MG TABLET.DR PO (09:17)
[2022-09-10] MEDS: Cholecalciferol (Vitamin D3) 25 MCG TABLET PO (09:17)
[2022-09-10] MEDS: Aspirin Enteric Coated 81 MG TABLET.DR PO (09:17)
[2022-09-10 09:59] LABS: Alkaline Phosphatase 119 U/L (39-117); Aspartate Amino Transferase 35 U/L (5-31); Bilirubin Total 0.6 mg/dL (0.0-1.0); Blood Urea Nitrogen 13 mg/dL (9-16); Creatinine Clr Calc Pharmacy 64.3; Estimated Glomerular Filt Rate > 60; Magnesium 2.1 mg/dL (1.6-2.6)
--- NOTE | 2022-09-10 10:14 | PM.CNCAR ---
History of Present Illness History of Present Illness Date of Service: 09/10/22 Requesting physician: Hollis Herbert Consult reason: other (Myocardial infarction) Chief complaint: ACS Narrative: I was consulted to [place] in cardiology consultation today for elevated troponins and left bundle-branch block. Patient does not provide any history due to cognitive dysfunction and I stroke with possible aphasia. I did obtain the history from her daughter. She lives with her daughter who takes care of her 24 hours a day. She had disabling stroke in April 01 with mostly very limited functionality with no ability to walk. Patient is mostly wheelchair-bound and daughter tries to move her but with limited success. She also has significant cognitive impairment and as per the daughter is not always with it. She she was brought to the emergency room by her daughter yesterday as she got suddenly diaphoretic and started vomiting. There was no reported chest pain. When she came to the emergency room she was noted to have left bundle-branch block which is new and a troponins which were elevated in 1400 range. There was continuing no chest pain including this morning with limited conversation with her she denies any chest pain. Denies any shortness of breath. Cardiology consult was sought because of acute myocardial infarction. Decision was made last night after discussing with the daughter to manage this conservatively which I think is appropriate at this point in time. She has been started on IV heparin, is getting aspirin and statins. Review of Systems Review of Systems: Yes Unobtainable due to mental status PMFSH Past Medical History Medical History Asthma Diabetes HLD (hyperlipidemia) HTN (hypertension) Stroke Family History Family History Other Diabetes Surgical History Surgical History History of cholecystectomy Social History Social History Household Members: Children Alcohol intake: unknown Patient Tobacco Use Status: Never used Tobacco Smoked in Last 30 Days: No Use of substances other than those prescribed or required for medical reasons: No Advance Directives: No Advance Directives Information Provided: Yes Nutrition Risks: Difficulty chewing and Difficulty swallowing Meds Allergies Allergy/AdvReac Type Severity Reaction Status Date / Time No Known Allergies Allergy Unverified 12/27/19 15:52 [No Known Allergies*] Active Medications: Current Medications Acetaminophen (Acetaminophen 325 Mg Tablet) 650 mg PO Q6H PRN PRN Reason: Pain, Mild (Pain Scale 1-3) Allopurinol (Allopurinol 100 Mg Tablet) 100 mg PO DAILY [facility] Last Admin: 09/10/22 09:17 Dose: 100 mg Aspirin (Aspirin Enteric Coated 81 Mg Tablet.) 81 mg PO DAILY [facility] Last Admin: 09/10/22 09:18 Dose: Not Given Atorvastatin Calcium (Atorvastatin Calcium 80 Mg Tablet) 80 mg PO BEDTIME [facility] Clopidogrel Bisulfate (Clopidogrel Bisulfate 75 Mg Tablet) 75 mg PO DAILY [facility] Last Admin: 09/10/22 09:17 Dose: 75 mg Docusate Sodium (Docusate Sodium 100 Mg Capsule) 100 mg PO DAILY PRN PRN Reason: Constipation Docusate Sodium (Docusate Sodium 100 Mg Capsule) 100 mg PO BID [facility] Last Admin: 09/10/22 09:16 Dose: 100 mg Ferrous Sulfate (Ferrous Sulfate 324 Mg Tablet.) 324 mg PO DAILY [facility] Last Admin: 09/10/22 09:17 Dose: 324 mg Fluoxetine HCl (Fluoxetine Hcl 20 Mg Capsule) 20 mg PO DAILY [facility] Last Admin: 09/10/22 09:18 Dose: Not Given Heparin Sodium (Porcine) (Heparin Sodium,Porcine 5,000 Unit/Ml Vial) 3,300 unit 40 unit/kg (3300 unit) IVPUSH PROTOCOL BOLUS PRN; Protocol PRN Reason: 40 unit/kg - Heparin Protocol Heparin Sodium (Porcine) (Heparin Sodium,Porcine 5,000 Unit/Ml Vial) 6,500 unit 80 unit/kg (6500 unit) IVPUSH PROTOCOL BOLUS PRN; Protocol PRN Reason: 80 unit/kg - Heparin Protocol Hydralazine HCl (Hydralazine Hcl 10 Mg Tablet) 10 mg PO QID [facility]; Protocol Last Admin: 09/10/22 09:18 Dose: Not Given Heparin Sodium/Sodium Chloride (Heparin Sodium,Porcine/1/2ns) 25,000 unit in 250 mls @ 0 mls/hr IVCONT .Q0M [facility]; Protocol Last Titration: 09/10/22 08:30 Dose: 0 units/kg/hr, 0 mls/hr Lactated Ringer's (Lr) 1,000 mls @ 100 mls/hr IVCONT .Q10H [facility] Last Admin: 09/10/22 07:59 Dose: 100 mls/hr Piperacillin Sod/Tazobactam (Sod 4.5 gm/ Sodium Chloride) 100 mls @ 200 mls/hr IV Q6H [facility] Last Infusion: 09/10/22 09:05 Dose: Infused Lisinopril (Lisinopril 40 Mg Tablet) 40 mg PO DAILY [facility]; Protocol Last Admin: 09/10/22 09:18 Dose: Not Given Metoprolol Tartrate (Metoprolol Tartrate 12.5 Mg Halftab) 12.5 mg PO BID [facility]; Protocol Last Admin: 09/10/22 09:17 Dose: 12.5 mg Nitroglycerin (Nitroglycerin 0.4 Mg Tab.Subl) 0.4 mg SUBLINGUAL Q5MX3 PRN PRN Reason: Chest Pain Omeprazole (Omeprazole 20 Mg Capsule.Dr) 20 mg PO BID@0630,1630 [facility] Last Admin: 09/10/22 09:16 Dose: 20 mg Ondansetron HCl (Ondansetron Hcl 4 Mg/2 Ml Vial) 4 mg IVPUSH Q8H PRN PRN Reason: Nausea and Vomiting Sodium Chloride (0.9 % Sodium Chloride Flush 3 Ml Syringe) 3 ml IVFLUSH QSHIFT [facility] Last Admin: 09/10/22 08:00 Dose: 3 ml Vitamin D (Cholecalciferol (Vitamin D3) 25 Mcg Tablet) 25 mcg PO DAILY [facility] Last Admin: 09/10/22 09:18 Dose: Not Given Home Medications Medication Instructions Recorded Confirmed Last Taken Type albuterol sulfate 90 mcg/actuation 2 puff inhalation Q4-6H PRN 03/18/22 09/10/22 Unknown History aerosol inhaler (ProAir HFA) Wheezing allopurinol 100 mg tablet 1 tab PO QAM 03/18/22 09/10/22 09/09/22 09:00 History atorvastatin 80 mg tablet 1 tab PO BEDTIME 03/18/22 09/10/22 Unknown History cholecalciferol (vitamin D3) 25 1 cap PO QAM 03/18/22 09/10/22 09/09/22 09:00 History mcg (1,000 unit) capsule (Vitamin D3) docusate sodium 100 mg capsule 1 cap PO BID constipation 03/18/22 09/10/22 09/09/22 09:00 History ferrous sulfate 325 mg (65 mg 1 tab PO DAILY 03/18/22 09/10/22 09/09/22 09:00 History iron) tablet (FeroSul) fluoxetine 20 mg capsule 1 cap PO QAM 03/18/22 09/10/22 09/09/22 09:00 History lisinopril 40 mg tablet 1 tab PO QAM 03/18/22 09/10/22 09/09/22 09:00 History omeprazole 20 mg capsule,delayed 1 cap PO BID 03/18/22 09/10/22 09/09/22 09:00 History release aspirin 81 mg tablet,delayed 81 mg PO QAM 09/10/22 09/10/22 09/09/22 09:00 History release hydralazine 10 mg tablet 10 mg PO QID blood pressure 09/10/22 09/10/22 09/09/22 09:00 History Physical Exam Vital Signs: Vital Signs: Last Vital Signs Temp 97.5 F 09/10/22 06:10 Pulse 73 09/10/22 10:05 Resp 12 09/10/22 10:05 BP 109/56 L 09/10/22 10:05 Pulse Ox 95 09/10/22 10:05 O2 Del Method Room Air 09/10/22 10:05 BMI result Body Mass Index 32.9 Const: General: cooperative, comfortable, no acute distress, alert and awake Nutritional Appearance: overweight HEENT: Head: Yes normocephalic and Yes atraumatic Neck: Neck: Yes trachea midline, Yes supple and Yes no JVD Resp: Effort & Inspection: decreased respiratory effort Auscultation: clear to auscultation bilaterally Cardio: Jugular venous distension: no JVD Palpation: normal PMI Rate: regular rate Rhythm: regular rhythm Heart sounds: S1 normal heart sound present, S2 normal heart sound present, no click, no gallops and no murmurs GI: Auscultation: normal bowel sounds Skin: General skin exam: no rashes or lesions noted Extrem: General: Yes no clubbing, cyanosis or edema Objective Labs and Meds 09/10/22 01:47 09/10/22 07:33 Lab results: Laboratory Results - last 24 hr 09/09/22 09/09/22 09/09/22 22:45 22:46 22:55 WBC 14.7 H RBC 4.51 Hgb 13.5 Hct 40.4 MCV 89.6 MCH 29.9 MCHC 33.4 RDW 12.9 Plt Count 183 MPV 9.8 Absolute Nucleated RBC 0.000 Nucleated RBC % (auto) 0.0 PT INR APTT aPTT Heparin Protocol Sodium Potassium Chloride Carbon Dioxide Anion Gap BUN Creatinine Estim Creat Clear Calc Estimated GFR Random Glucose Lactic Acid 1.0 Calcium Magnesium Total Bilirubin AST ALT Alkaline Phosphatase Troponin I High Sens 1427.0 H* Total Protein Albumin Lipase Urine Color Urine Appearance Urine pH Ur Specific [place] Urine Protein Urine Glucose (UA) Urine Ketones Urine Blood Urine Nitrite Ur Leukocyte Esterase Urine RBC Urine WBC Ur Squamous Epith Cells Urine Bacteria Hyaline Casts 09/09/22 09/10/22 09/10/22 23:18 00:01 00:01 WBC RBC Hgb Hct MCV MCH MCHC RDW Plt Count MPV Absolute Nucleated RBC Nucleated RBC % (auto) PT 13.4 H INR 1.2 H APTT 32.4 aPTT Heparin Protocol Sodium 143 Potassium 2.7 L D Chloride 107 Carbon Dioxide 25 Anion Gap 14 BUN 14 Creatinine 0.87 Estim Creat Clear Calc 67.2 Estimated GFR > 60 Random Glucose 145 H Lactic Acid Calcium 8.4 Magnesium 1.3 L* Total Bilirubin 1.0 AST 45 H ALT 48 H Alkaline Phosphatase 115 Troponin I High Sens Total Protein 5.6 L Albumin 3.3 L Lipase 31 Urine Color Urine Appearance Urine pH Ur Specific [place] Urine Protein Urine Glucose (UA) Urine Ketones Urine Blood Urine Nitrite Ur Leukocyte Esterase Urine RBC Urine WBC Ur Squamous Epith Cells Urine Bacteria Hyaline Casts 09/10/22 09/10/22 09/10/22 01:26 01:47 01:47 WBC 18.6 H RBC 4.25 Hgb 12.6 Hct 38.2 MCV 89.9 MCH 29.6 MCHC 33.0 RDW 12.9 Plt Count 194 MPV 9.7 Absolute Nucleated RBC 0.000 Nucleated RBC % (auto) 0.0 PT INR APTT aPTT Heparin Protocol 93.6 H Sodium Potassium Chloride Carbon Dioxide Anion Gap BUN Creatinine Estim Creat Clear Calc Estimated GFR Random Glucose Lactic Acid Calcium Magnesium Total Bilirubin AST ALT Alkaline Phosphatase Troponin I High Sens Total Protein Albumin Lipase Urine Color Yellow Urine Appearance Cloudy Urine pH 5.5 Ur Specific [place] 1.015 Urine Protein 30 (1+) H Urine Glucose (UA) Negative Urine Ketones Trace Urine Blood Moderate (2+) H Urine Nitrite Positive H Ur Leukocyte Esterase Large (3+) H Urine RBC 11-20 H Urine WBC >50 H Ur Squamous Epith Cells 0-2 Urine Bacteria 4+ Hyaline Casts 0-2 09/10/22 09/10/22 09/10/22 07:33 07:33 07:33 WBC RBC Hgb Hct MCV MCH MCHC RDW Plt Count MPV Absolute Nucleated RBC Nucleated RBC % (auto) PT INR APTT aPTT Heparin Protocol 114.1 H* D Sodium 143 Potassium 3.3 D Chloride 108 Carbon Dioxide 24 Anion Gap 14 BUN 13 Creatinine 0.91 Estim Creat Clear Calc 64.3 Estimated GFR > 60 Random Glucose 110 Lactic Acid Calcium 8.6 Magnesium 2.1 Total Bilirubin 0.6 AST 35 H ALT 42 H Alkaline Phosphatase 119 H Troponin I High Sens 1525.4 H* Total Protein 5.7 L Albumin 3.3 L Lipase Urine Color Urine Appearance Urine pH Ur Specific [place] Urine Protein Urine Glucose (UA) Urine Ketones Urine Blood Urine Nitrite Ur Leukocyte Esterase Urine RBC Urine WBC Ur Squamous Epith Cells Urine Bacteria Hyaline Casts 09/10/22 07:33 WBC RBC Hgb Hct MCV MCH MCHC RDW Plt Count MPV Absolute Nucleated RBC Nucleated RBC % (auto) PT INR APTT aPTT Heparin Protocol Sodium Potassium Chloride Carbon Dioxide Anion Gap BUN Creatinine Estim Creat Clear Calc Estimated GFR Random Glucose Lactic Acid Calcium Magnesium Cancelled Total Bilirubin AST ALT Alkaline Phosphatase Troponin I High Sens Total Protein Albumin Lipase Urine Color Urine Appearance Urine pH Ur Specific [place] Urine Protein Urine Glucose (UA) Urine Ketones Urine Blood Urine Nitrite Ur Leukocyte Esterase Urine RBC Urine WBC Ur Squamous Epith Cells Urine Bacteria Hyaline Casts EKG shows normal sinus rhythm with left bundle-branch block Imaging Radiologist's impression: Impressions Chest X-Ray 09/09/22 23:03 IMPRESSION: No focal consolidation identified. Prominent cardiac silhouette. Assessment and Plan (1) Acute myocardial infarction: Status: Acute Patient present with symptoms with the atypical but probably related to her cognitive dysfunction she is not able to articulate her symptoms ski came with new onset left bundle-branch block and elevated troponins consistent with acute myocardial infarction. There was a detailed discussion with the daughter last night and was decided given significant limitation in her overall functional status and advanced cognitive dysfunction the management will be conservative. I agree with the same. I would agree with IV heparin for 48-72 hours. Continue aspirin therapy and would add Plavix 75 mg to her regimen. Continue high-intensity statin therapy. Would add metoprolol to her regimen. Management will be conservative and daughter is agreeable. We also discussed about high risk of congestive heart failure as well as ventricular arrhythmias and sudden cardiac that in the setting of acute myocardial infarction. She is going to think about her advanced directives. Obtain an echocardiogram to evaluate LV systolic and diastolic function. Overall prognosis is guarded. Patient's daughter understands this. Patient cannot participate in her medical decision-making. Will follow with you Time Spent With Patient Time: Total time managing care of this patient today ____ minutes. Procedures Date of Service Date of Service: 09/10/22
[2022-09-10 10:43] LABS: PTT Heparin Drip 42.3 SEC (53-77.9)
[2022-09-10] MEDS: hydrALAZINE HCl 10 MG TABLET PO ×3 (15:34→21:43)
[2022-09-10 16:04] LABS: COVID-19 Test Negative (Negative); IDNOW Serial# 08D9AD1C
--- NOTE | 2022-09-10 17:40 | HO.PM.IMPN ---
Subjective Subjective Date of Service: 09/10/22 Interval History: acute coronary syndrome Review of Systems Unable to give any history Seems awake and comfortable No fever or chills Vital stable Physical Exam Vital Signs: Vital Signs: Last Vital Signs Temp 98.3 F 09/10/22 15:19 Pulse 68 09/10/22 15:29 Resp 13 09/10/22 15:29 BP 109/55 L 09/10/22 15:29 Pulse Ox 96 09/10/22 15:29 O2 Del Method Room Air 09/10/22 15:29 BMI result Body Mass Index 32.9 please see h&p Objective Data Active Medications Acetaminophen (Acetaminophen 325 Mg Tablet) 650 mg PO Q6H PRN PRN Reason: Pain, Mild (Pain Scale 1-3) Allopurinol (Allopurinol 100 Mg Tablet) 100 mg PO DAILY [facility] Last Admin: 09/10/22 09:17 Dose: Not Given Documented By: MICHAEL Non-Admin Reason: Previously Administered Aspirin (Aspirin Enteric Coated 81 Mg Tablet.) 81 mg PO DAILY [facility] Last Admin: 09/10/22 09:18 Dose: Not Given Documented By: MICHAEL Non-Admin Reason: Previously Administered Atorvastatin Calcium (Atorvastatin Calcium 80 Mg Tablet) 80 mg PO BEDTIME [facility] Clopidogrel Bisulfate (Clopidogrel Bisulfate 75 Mg Tablet) 75 mg PO DAILY [facility] Last Admin: 09/10/22 09:17 Dose: 75 mg Documented By: MICHAEL Docusate Sodium (Docusate Sodium 100 Mg Capsule) 100 mg PO DAILY PRN PRN Reason: Constipation Docusate Sodium (Docusate Sodium 100 Mg Capsule) 100 mg PO BID [facility] Last Admin: 09/10/22 09:16 Dose: 100 mg Documented By: MICHAEL Ferrous Sulfate (Ferrous Sulfate 324 Mg Tablet.) 324 mg PO DAILY [facility] Last Admin: 09/10/22 09:17 Dose: 324 mg Documented By: MICHAEL Fluoxetine HCl (Fluoxetine Hcl 20 Mg Capsule) 20 mg PO DAILY [facility] Last Admin: 09/10/22 09:18 Dose: Not Given Documented By: MICHAEL Non-Admin Reason: Previously Administered Heparin Sodium (Porcine) (Heparin Sodium,Porcine 5,000 Unit/Ml Vial) 3,300 unit 40 unit/kg (3300 unit) IVPUSH PROTOCOL BOLUS PRN; Protocol PRN Reason: 40 unit/kg - Heparin Protocol Heparin Sodium (Porcine) (Heparin Sodium,Porcine 5,000 Unit/Ml Vial) 6,500 unit 80 unit/kg (6500 unit) IVPUSH PROTOCOL BOLUS PRN; Protocol PRN Reason: 80 unit/kg - Heparin Protocol Hydralazine HCl (Hydralazine Hcl 10 Mg Tablet) 10 mg PO QID [facility]; Protocol Last Admin: 09/10/22 15:34 Dose: 10 mg Documented By: JAY Comments: Med not available at time of administration Heparin Sodium/Sodium Chloride (Heparin Sodium,Porcine/1/2ns) 25,000 unit in 250 mls @ 0 mls/hr IVCONT .Q0M [facility]; Protocol Last Titration: 09/10/22 11:33 Dose: 8 units/kg/hr, 6.53 mls/hr Documented By: JAY Co-signed By: FERNANDO Lactated Ringer's (Lr) 1,000 mls @ 100 mls/hr IVCONT .Q10H [facility] Last Admin: 09/10/22 07:59 Dose: 100 mls/hr Documented By: MICHAEL Piperacillin Sod/Tazobactam (Sod 4.5 gm/ Sodium Chloride) 100 mls @ 200 mls/hr IV Q6H [facility] Last Infusion: 09/10/22 15:21 Dose: 0 mls/hr Documented By: JAY Lisinopril (Lisinopril 40 Mg Tablet) 40 mg PO DAILY [facility]; Protocol Last Admin: 09/10/22 09:18 Dose: Not Given Documented By: MICHAEL Non-Admin Reason: Previously Administered Metoprolol Tartrate (Metoprolol Tartrate 12.5 Mg Halftab) 12.5 mg PO BID [facility]; Protocol Last Admin: 09/10/22 09:17 Dose: 12.5 mg Documented By: MICHAEL Nitroglycerin (Nitroglycerin 0.4 Mg Tab.Subl) 0.4 mg SUBLINGUAL Q5MX3 PRN PRN Reason: Chest Pain Omeprazole (Omeprazole 20 Mg Capsule.Dr) 20 mg PO BID@0630,1630 [facility] Last Admin: 09/10/22 17:20 Dose: 20 mg Documented By: JAY Ondansetron HCl (Ondansetron Hcl 4 Mg/2 Ml Vial) 4 mg IVPUSH Q8H PRN PRN Reason: Nausea and Vomiting Sodium Chloride (0.9 % Sodium Chloride Flush 3 Ml Syringe) 3 ml IVFLUSH QSHIFT [facility] Last Admin: 09/10/22 17:08 Dose: Not Given Documented By: JAY Non-Admin Reason: fluids infusing Vitamin D (Cholecalciferol (Vitamin D3) 25 Mcg Tablet) 25 mcg PO DAILY [facility] Last Admin: 09/10/22 09:18 Dose: Not Given Documented By: MICHAEL Non-Admin Reason: Previously Administered Labs 09/10/22 01:47 09/10/22 07:33 Labs: Laboratory Results - last 24 hr 09/09/22 09/09/22 09/09/22 22:45 22:46 22:55 MCV 89.6 MCH 29.9 MCHC 33.4 RDW 12.9 Plt Count 183 MPV 9.8 Absolute Nucleated RBC 0.000 Nucleated RBC % (auto) 0.0 PT INR APTT aPTT Heparin Protocol Anion Gap Estim Creat Clear Calc Estimated GFR Random Glucose Lactic Acid 1.0 Calcium Magnesium Total Bilirubin AST ALT Alkaline Phosphatase Troponin I High Sens 1427.0 H* Total Protein Albumin Lipase Urine Color Urine Appearance Urine pH Ur Specific [place] Urine Protein Urine Glucose (UA) Urine Ketones Urine Blood Urine Nitrite Ur Leukocyte Esterase Urine RBC Urine WBC Ur Squamous Epith Cells Urine Bacteria Hyaline Casts COVID-19 ([facility]) COVID-19 [employer] 09/09/22 09/10/22 09/10/22 23:18 00:01 00:01 MCV MCH MCHC RDW Plt Count MPV Absolute Nucleated RBC Nucleated RBC % (auto) PT 13.4 H INR 1.2 H APTT 32.4 aPTT Heparin Protocol Anion Gap 14 Estim Creat Clear Calc 67.2 Estimated GFR > 60 Random Glucose 145 H Lactic Acid Calcium 8.4 Magnesium 1.3 L* Total Bilirubin 1.0 AST 45 H ALT 48 H Alkaline Phosphatase 115 Troponin I High Sens Total Protein 5.6 L Albumin 3.3 L Lipase 31 Urine Color Urine Appearance Urine pH Ur Specific [place] Urine Protein Urine Glucose (UA) Urine Ketones Urine Blood Urine Nitrite Ur Leukocyte Esterase Urine RBC Urine WBC Ur Squamous Epith Cells Urine Bacteria Hyaline Casts COVID-19 ([facility]) COVID-19 Clin Com 09/10/22 09/10/22 09/10/22 01:26 01:47 01:47 MCV 89.9 MCH 29.6 MCHC 33.0 RDW 12.9 Plt Count 194 MPV 9.7 Absolute Nucleated RBC 0.000 Nucleated RBC % (auto) 0.0 PT INR APTT aPTT Heparin Protocol 93.6 H Anion Gap Estim Creat Clear Calc Estimated GFR Random Glucose Lactic Acid Calcium Magnesium Total Bilirubin AST ALT Alkaline Phosphatase Troponin I High Sens Total Protein Albumin Lipase Urine Color Yellow Urine Appearance Cloudy Urine pH 5.5 Ur Specific [place] 1.015 Urine Protein 30 (1+) H Urine Glucose (UA) Negative Urine Ketones Trace Urine Blood Moderate (2+) H Urine Nitrite Positive H Ur Leukocyte Esterase Large (3+) H Urine RBC 11-20 H Urine WBC >50 H Ur Squamous Epith Cells 0-2 Urine Bacteria 4+ Hyaline Casts 0-2 COVID-19 ([facility]) COVID-19 Clin Com 09/10/22 09/10/22 09/10/22 07:33 07:33 07:33 MCV MCH MCHC RDW Plt Count MPV Absolute Nucleated RBC Nucleated RBC % (auto) PT INR APTT aPTT Heparin Protocol 114.1 H* D Anion Gap 14 Estim Creat Clear Calc 64.3 Estimated GFR > 60 Random Glucose 110 Lactic Acid Calcium 8.6 Magnesium 2.1 Total Bilirubin 0.6 AST 35 H ALT 42 H Alkaline Phosphatase 119 H Troponin I High Sens 1525.4 H* Total Protein 5.7 L Albumin 3.3 L Lipase Urine Color Urine Appearance Urine pH Ur Specific [place] Urine Protein Urine Glucose (UA) Urine Ketones Urine Blood Urine Nitrite Ur Leukocyte Esterase Urine RBC Urine WBC Ur Squamous Epith Cells Urine Bacteria Hyaline Casts COVID-19 ([facility]) COVID-19 Clin Com 09/10/22 09/10/22 09/10/22 07:33 10:03 15:31 MCV MCH MCHC RDW Plt Count MPV Absolute Nucleated RBC Nucleated RBC % (auto) PT INR APTT aPTT Heparin Protocol 42.3 L D Anion Gap Estim Creat Clear Calc Estimated GFR Random Glucose Lactic Acid Calcium Magnesium Cancelled Total Bilirubin AST ALT Alkaline Phosphatase Troponin I High Sens Total Protein Albumin Lipase Urine Color Urine Appearance Urine pH Ur Specific [place] Urine Protein Urine Glucose (UA) Urine Ketones Urine Blood Urine Nitrite Ur Leukocyte Esterase Urine RBC Urine WBC Ur Squamous Epith Cells Urine Bacteria Hyaline Casts COVID-19 ([facility]) Negative COVID-19 Clin Com See Note Assessment and Plan (1) Acute myocardial infarction: Status: Acute (2) UTI (urinary tract infection): Status: Acute Plan Assessment plan coordinated in H&P note. Seen by Cardiology: Recommended to continue conservative therapy with IV heparin, aspirin,plavix, beta-jasiel, statin Echo is in process. blood and urine cultures pending uti -continue ceftriaxone family aware Time Spent With Patient Time: Total time managing care of this patient today ____ minutes. Quality Stroke Does the patient have a stroke diagnosis?: No VTE Prior VTE?: No VTE Risk Level:: Medical - moderate - high VTE Device Contraindication: Treatment Not Indicated VTE Drug Contraindication: N/A - Med Ordered
--- NOTE | 2022-09-10 19:13 | PC.NURSE ---
PTT rejected by lab, will have lab redrawn
--- NOTE | 2022-09-10 19:17 | PC.NURSE ---
Spoke with pharmacy regarding getting dose of hydralazine for patient.
[2022-09-10 19:55] LABS: PTT Heparin Drip 33.2 SEC (53-77.9)
--- NOTE | 2022-09-10 20:18 | PC.NURSE ---
ED RN reported to me at present that heparin drip needs to be adjusted.
--- NOTE | 2022-09-10 20:22 | PC.NURSE ---
Patient brought up to [facility] via stretcher, daughter at bedside at this time.
[2022-09-10 20:32] LABS: Glucose, Whole Blood 92 mg/dL (60-115)
--- NOTE | 2022-09-10 21:19 | PC.NURSE ---
Heparin drip was not adjusted in ED ,PTT-HD 33.2,Jose Elias Pharmacist called with recomendations not to follow protocol based on previous results ,recomendation is to increase drip by 2 units and do not give bolus.Dr. Moreira was notifed,was not able to enter an order,she agreed with pharmacist ,heparin drip was increased to 10 units/kg/hr ,next PTT-hd is due at 0315
[2022-09-10] MEDS: Atorvastatin Calcium 80 MG TABLET PO (21:45)
[2022-09-10 23:28] LABS: Troponin-I High Sensitivity 746.8 ng/L (<3.5-17.0)
--- NOTE | 2022-09-11 01:33 | PC.NURSE ---
reported from previous nurse, Pharmacist called RN Julia for heparin drip do not followed the protocol bc previously (last admission?) pt's ptt was high, dr. Moreira agreed with it. so pt IV drip has 10 units going on. this nurse let frame sample and pattern supervisor (Germaine) know about the story. this nurse checked pt for the risk of bleeding at 01:30, no s/s of bleeding. pt is conformably laying on bed eyes closed and resting.
[2022-09-11] MEDS: Piperacillin Sodium/Tazobactam 4.5 GM in 0.9 % Sodium Chloride 100 ML IV ×4 (01:43→21:03)
[2022-09-11 04:00] VITALS: BP 131/80; RESP 18; TEMP 36.6; O2SAT 97
[2022-09-11 05:55] LABS: PTT Heparin Drip 124.3 SEC (53-77.9)
[2022-09-11 06:12] VITALS: BMI 29.0
[2022-09-11] MEDS: Omeprazole 20 MG CAPSULE.DR PO ×2 (06:28→18:11)
[2022-09-11 07:17] VITALS: BP 142/83; PULSE 83; RESP 20; TEMP 36.9; O2SAT 96
[2022-09-11 07:28] LABS: Hematocrit 39.8 % (37.0-47.0); Hemoglobin 12.9 g/dl (12.0-16.0); Mean Corpuscular HGB Conc 32.4 g/dl (31.0-35.0); Mean Corpuscular Hemoglobin 29.9 pg (27.0-33.0); Mean Corpuscular Volume 92.3 fL (80.0-98.0); Mean Platelet Volume 10.1 fL (9.4-12.3); Platelet Count 183 X10*3/uL (160-400); Red Blood Count 4.31 X10*6/uL (4.20-5.50); Red Cell Distribution Width 12.8 % (11.0-16.0); White Blood Count 10.2 X10*3/uL (4.8-10.8)
[2022-09-11 07:37] LABS: Prothrombin Time 11.3 SEC (10.0-13.1)
[2022-09-11 07:40] LABS: PTT Heparin Drip 30.6 SEC (53-77.9)
--- NOTE | 2022-09-11 09:18 | MHC.CM.PN ---
Lives w/daughter (Ang); owns walker, WC and shower chair. Daughter drives her to appts, PCP accurate. No prev. services. Pt's bed/bath on first flr of home. D/C plan is return home w/daughter via daughter (? w/services). CM to follow.
[2022-09-11] MEDS: Docusate Sodium 100 MG CAPSULE PO (09:31)
[2022-09-11] MEDS: Metoprolol Tartrate 12.5 MG HALFTAB PO ×2 (09:31→21:08)
[2022-09-11] MEDS: Clopidogrel Bisulfate 75 MG TABLET PO (09:31)
[2022-09-11] MEDS: Cholecalciferol (Vitamin D3) 25 MCG TABLET PO (09:31)
[2022-09-11] MEDS: hydrALAZINE HCl 10 MG TABLET PO ×4 (09:31→21:08)
[2022-09-11] MEDS: FLUoxetine HCl 20 MG CAPSULE PO (09:32)
[2022-09-11] MEDS: Aspirin Enteric Coated 81 MG TABLET.DR PO (09:32)
[2022-09-11] MEDS: Ferrous Sulfate 324 MG TABLET.DR PO (09:32)
[2022-09-11] MEDS: allopurinoL 100 MG TABLET PO (09:32)
--- NOTE | 2022-09-11 10:01 | PM.PNCARD ---
Subjective Subjective Date of Service: 09/11/22 Principal diagnosis: Acute myocardial infarction Interval history: Patient still remains nonverbal and with poor communication. However when I asked her if she was having any chest pain or shortness of breath she denied. Echocardiogram consistent with ischemic cardiomyopathy severe LV systolic dysfunction. Review of Systems Review of Systems Yes Unobtainable due to mental status Physical Exam Vital Signs: Last Vital Signs Temp 98.5 F 09/11/22 07:17 Pulse 83 09/11/22 07:17 Resp 20 09/11/22 07:17 BP 142/83 H 09/11/22 07:17 Pulse Ox 96 09/11/22 07:17 O2 Del Method Room Air 09/11/22 07:17 BMI result Body Mass Index 29.0 Const General: cooperative, comfortable, no acute distress, alert and awake Nutritional Appearance: overweight HEENT Head: Yes normocephalic and Yes atraumatic Neck Neck: Yes trachea midline, Yes supple and Yes no JVD Resp Effort & Inspection: decreased respiratory effort Auscultation: clear to auscultation bilaterally Cardio Jugular venous distension: no JVD Palpation: normal PMI Rate: regular rate Rhythm: regular rhythm Heart sounds: S1 normal heart sound present, S2 normal heart sound present, no click, no gallops and no murmurs GI Auscultation: normal bowel sounds Skin General skin exam: no rashes or lesions noted Extrem General: Yes no clubbing, cyanosis or edema Objective Labs and Meds 09/11/22 07:13 09/10/22 07:33 Lab results: Laboratory Results - last 24 hr 09/10/22 09/10/22 09/10/22 10:03 15:31 19:34 WBC RBC Hgb Hct MCV MCH MCHC RDW Plt Count MPV Absolute Nucleated RBC Nucleated RBC % (auto) PT INR aPTT Heparin Protocol 42.3 L D 33.2 L D POC Glucose Troponin I High Sens COVID-19 ([facility]) Negative COVID-19 Clin Com See Note 09/10/22 09/10/22 09/11/22 20:18 22:07 04:59 WBC RBC Hgb Hct MCV MCH MCHC RDW Plt Count MPV Absolute Nucleated RBC Nucleated RBC % (auto) PT INR aPTT Heparin Protocol 124.3 H* D POC Glucose 92 Troponin I High Sens 746.8 H* D COVID-19 ([facility]) COVID-19 Clin Com 09/11/22 09/11/22 09/11/22 07:13 07:13 07:13 WBC 10.2 RBC 4.31 Hgb 12.9 Hct 39.8 MCV 92.3 MCH 29.9 MCHC 32.4 RDW 12.8 Plt Count 183 MPV 10.1 Absolute Nucleated RBC 0.000 Nucleated RBC % (auto) 0.0 PT 11.3 INR 1.0 aPTT Heparin Protocol 30.6 L D POC Glucose Troponin I High Sens COVID-19 ([facility]) COVID-19 Clin Com ECHO Conclusions: - 1. Severe LV systolic dysfunction with LVEF of 25-30% with ? ? regional wall motion abnormality with impaired relaxation filling pattern and elevated filling pressures ? 2. Normal cardiac valvular Dopplers? 3. No gross pericardial effusio Progress Note: A&P Assessment and plan (1) Acute myocardial infarction: Status: Acute Assessment and Plan: Acute myocardial infarction in this middle-aged woman with severe cognitive dysfunction and prior CVA with limited functionality. Management would be medical and conservative as discussed with her daughter yesterday. Patient not able to participate in her medical decision making at this point time. Continue IV heparin for total of 72 hours. Dual antiplatelet therapy with aspirin and Plavix. High-intensity statin therapy. Would add neurohormonal modulation with Entresto for severe LV systolic dysfunction. Continue beta-jasiel therapy. Overall prognosis is guarded. Please discussed advanced directive such as DNR Will sign of the case at this point time. Thank you for allowing me to partake in the care. Time Spent With Patient Time: Total time managing care of this patient today ____ minutes. Progress Note: Quality Stroke Does the patient have a stroke diagnosis?: No Procedures Date of Service Date of Service: 09/11/22
[2022-09-11] MEDS: guaiFENesin 100 MG/5 ML LIQUID 10 ML PO ×3 (11:00→22:33)
[2022-09-11 11:28] VITALS: BP 127/70; PULSE 85; RESP 20; TEMP 36.9; O2SAT 94
--- NOTE | 2022-09-11 12:36 | HO.PM.IMPN ---
Subjective Subjective Date of Service: 09/11/22 Interval History: nstemi Review of Systems unable to tell much has dry cough, otherwise feel comfortable does not seems to be short of breath. no fever or chills. Physical Exam Vital Signs: Vital Signs: Last Vital Signs Temp 98.4 F 09/11/22 11:28 Pulse 85 09/11/22 11:28 Resp 20 09/11/22 11:28 BP 127/70 09/11/22 11:28 Pulse Ox 94 09/11/22 11:28 O2 Del Method Room Air 09/11/22 11:28 BMI result Body Mass Index 29.0 Appearance: Alert,awake ,seems at baseline.? not in distress.? cvs: [id number], [id number] . res: clear to auscultation ,no rhonchii or wheezing abd: no rebound or guarding ,nt, bs present. ext pulses present , no cyanosis . neuro: nonfocal. Objective Data Active Medications Acetaminophen (Acetaminophen 325 Mg Tablet) 650 mg PO Q6H PRN PRN Reason: Pain, Mild (Pain Scale 1-3) Allopurinol (Allopurinol 100 Mg Tablet) 100 mg PO DAILY [facility] Last Admin: 09/11/22 09:32 Dose: 100 mg Documented By: VANDANA Aspirin (Aspirin Enteric Coated 81 Mg Tablet.) 81 mg PO DAILY [facility] Last Admin: 09/11/22 09:32 Dose: 81 mg Documented By: VANDANA Atorvastatin Calcium (Atorvastatin Calcium 80 Mg Tablet) 80 mg PO BEDTIME [facility] Last Admin: 09/10/22 21:45 Dose: 80 mg Documented By: ANNE MARIE Clopidogrel Bisulfate (Clopidogrel Bisulfate 75 Mg Tablet) 75 mg PO DAILY [facility] Last Admin: 09/11/22 09:31 Dose: 75 mg Documented By: VANDANA Docusate Sodium (Docusate Sodium 100 Mg Capsule) 100 mg PO DAILY PRN PRN Reason: Constipation Docusate Sodium (Docusate Sodium 100 Mg Capsule) 100 mg PO BID [facility] Last Admin: 09/11/22 09:31 Dose: 100 mg Documented By: VANDANA Ferrous Sulfate (Ferrous Sulfate 324 Mg Tablet.) 324 mg PO DAILY [facility] Last Admin: 09/11/22 09:32 Dose: 324 mg Documented By: VANDANA Fluoxetine HCl (Fluoxetine Hcl 20 Mg Capsule) 20 mg PO DAILY [facility] Last Admin: 09/11/22 09:32 Dose: 20 mg Documented By: VANDANA Guaifenesin (Guaifenesin 100 Mg/5 Ml Liquid) 10 ml PO Q4H [facility] Last Admin: 09/11/22 11:00 Dose: 10 ml Documented By: VANDANA Heparin Sodium (Porcine) (Heparin Sodium,Porcine 5,000 Unit/Ml Vial) 3,300 unit 40 unit/kg (3300 unit) IVPUSH PROTOCOL BOLUS PRN; Protocol PRN Reason: 40 unit/kg - Heparin Protocol Heparin Sodium (Porcine) (Heparin Sodium,Porcine 5,000 Unit/Ml Vial) 6,500 unit 80 unit/kg (6500 unit) IVPUSH PROTOCOL BOLUS PRN; Protocol PRN Reason: 80 unit/kg - Heparin Protocol Hydralazine HCl (Hydralazine Hcl 10 Mg Tablet) 10 mg PO QID [facility]; Protocol Last Admin: 09/11/22 09:31 Dose: 10 mg Documented By: VANDANA Heparin Sodium/Sodium Chloride (Heparin Sodium,Porcine/1/2ns) 25,000 unit in 250 mls @ 0 mls/hr IVCONT .Q0M [facility]; Protocol Last Titration: 09/11/22 08:13 Dose: 6 units/kg/hr, 4.9 mls/hr Documented By: VANDANA Co-signed By: YARI Lactated Ringer's (Lr) 1,000 mls @ 100 mls/hr IVCONT .Q10H [facility] Last Infusion: 09/11/22 08:24 Dose: 0 mls/hr Documented By: VANDANA Piperacillin Sod/Tazobactam (Sod 4.5 gm/ Sodium Chloride) 100 mls @ 200 mls/hr IV Q6H [facility] Last Infusion: 09/11/22 11:33 Dose: 0 mls/hr Documented By: VANDANA Metoprolol Tartrate (Metoprolol Tartrate 12.5 Mg Halftab) 12.5 mg PO BID [facility]; Protocol Last Admin: 09/11/22 09:31 Dose: 12.5 mg Documented By: VANDANA Nitroglycerin (Nitroglycerin 0.4 Mg Tab.Subl) 0.4 mg SUBLINGUAL Q5MX3 PRN PRN Reason: Chest Pain Omeprazole (Omeprazole 20 Mg Capsule.Dr) 20 mg PO BID@0630,1630 [facility] Last Admin: 09/11/22 06:28 Dose: 20 mg Documented By: RIZWANA Ondansetron HCl (Ondansetron Hcl 4 Mg/2 Ml Vial) 4 mg IVPUSH Q8H PRN PRN Reason: Nausea and Vomiting Sodium Chloride (0.9 % Sodium Chloride Flush 3 Ml Syringe) 3 ml IVFLUSH QSHIFT [facility] Last Admin: 09/11/22 08:23 Dose: Not Given Documented By: VANDANA Non-Admin Reason: IV Running Valsartan (Valsartan 40 Mg Tablet) 40 mg PO BID [facility]; Protocol Vitamin D (Cholecalciferol (Vitamin D3) 25 Mcg Tablet) 25 mcg PO DAILY [facility] Last Admin: 09/11/22 09:31 Dose: 25 mcg Documented By: VANDANA Labs 09/11/22 07:13 09/10/22 07:33 Labs: Laboratory Results - last 24 hr 09/10/22 09/10/22 09/10/22 15:31 19:34 20:18 MCV MCH MCHC RDW Plt Count MPV Absolute Nucleated RBC Nucleated RBC % (auto) PT INR aPTT Heparin Protocol 33.2 L D POC Glucose 92 Troponin I High Sens COVID-19 ([facility]) Negative COVID-19 Clin Com See Note 09/10/22 09/11/22 09/11/22 22:07 04:59 07:13 MCV 92.3 MCH 29.9 MCHC 32.4 RDW 12.8 Plt Count 183 MPV 10.1 Absolute Nucleated RBC 0.000 Nucleated RBC % (auto) 0.0 PT INR aPTT Heparin Protocol 124.3 H* D POC Glucose Troponin I High Sens 746.8 H* D COVID-19 ([facility]) COVID-19 Clin Com 09/11/22 09/11/22 07:13 07:13 MCV MCH MCHC RDW Plt Count MPV Absolute Nucleated RBC Nucleated RBC % (auto) PT 11.3 INR 1.0 aPTT Heparin Protocol 30.6 L D POC Glucose Troponin I High Sens COVID-19 ([facility]) COVID-19 Clin Com Microbiology Microbiology Results: Microbiology 09/10/22 Unknown Urine Culture - Preliminary Urine clean catch - Urine de [place] top Gram negative ab 09/09/22 22:55 Blood Culture - Preliminary Blood - Venous No growth after 24 hours. 09/09/22 22:45 Blood Culture - Preliminary Blood - Venous No growth after 24 hours. Assessment and Plan (1) Acute myocardial infarction: Status: Acute Plan 62-year-old female with past medical history of Alzheimer's dementia, multiple CVA, hypertension, presents the hospital with nausea vomiting, found to have ACS Nstemi/new LBBB- with EKG changes of new LBBB, as well as significantly elevated troponin patient is nonverbal at baseline trops trending down echo:Normal left ventricular cavity size. There is mildly increased left ventricular wall thickness. The left ventricular systolic function is severely decreased. The visually estimated ejection fraction is between 25 30%. Spectral Doppler is indicative of an impaired relaxation filling pattern. Elevated filling pressures. E/E prime ratio is >15, consistent with elevated filling pressure ?seen by cardio: Recommended to continue conservative therapy with IV heparin/pt-ptt per protocol, aspirin,plavix, beta-jasiel, statin,added valsartan . not a catheterization candidate sepsis- present on arrival,thought to be likely secondary to UTI leukocytosis improved , normal lactic acid, no fever overnight blood culture neg@24hrs ,urine culture grew gram neg ab hemodynamically stable, continue with IV antibiotics zosyn started on 09/10/22 hypertension- stable continue antihypertensives DVT prophylaxis:? Heparin ggt d/w Her daughterin detail -accord with conservative management as above ,still considering about goal of care. ongoing hospitisaion need : Nstemi-conservative medical management -IV heparin as well as needed PT PTT monitoring 72 hrs, telemetry monitoring. Time Spent With Patient Time: Total time managing care of this patient today ____ minutes. Quality Stroke Does the patient have a stroke diagnosis?: No VTE Prior VTE?: No VTE Risk Level:: Medical - moderate - high VTE Device Contraindication: Treatment Not Indicated VTE Drug Contraindication: N/A - Med Ordered
[2022-09-11] MEDS: Lactated Ringers 1,000 ML 100 ML IVCONT ×2 (14:23→22:33)
[2022-09-11 15:15] VITALS: BP 140/69; PULSE 79; RESP 20; TEMP 36.7; O2SAT 95
[2022-09-11 15:18] LABS: PTT Heparin Drip 36.7 SEC (53-77.9)
[2022-09-11] MEDS: Heparin Sodium,Porcine 5,000 UNIT/ML VIAL 3300 UNIT IVPUSH (16:12)
[2022-09-11 19:16] VITALS: BP 134/69; PULSE 80; RESP 20; TEMP 36.6; O2SAT 97
[2022-09-11] MEDS: Heparin Sodium,Porcine/1/2NS 25,000 UNIT/250 ML IV.SOLN 6.53 UNIT IVCONT (19:29)
[2022-09-11 20:58] LABS: PTT Heparin Drip 65.5 SEC (53-77.9)
[2022-09-11] MEDS: 0.9 % Sodium Chloride Flush 3 ML SYRINGE IVFLUSH (21:08)
[2022-09-11] MEDS: Atorvastatin Calcium 80 MG TABLET PO (21:08)
[2022-09-11] MEDS: Valsartan 40 MG TABLET PO (21:08)
[2022-09-11 23:51] VITALS: BP 135/83; PULSE 75; RESP 16; TEMP 36.3; O2SAT 95
[2022-09-12] MEDS: Piperacillin Sodium/Tazobactam 4.5 GM in 0.9 % Sodium Chloride 100 ML IV ×2 (02:19→08:58)
[2022-09-12] MEDS: guaiFENesin 100 MG/5 ML LIQUID 10 ML PO ×3 (02:25→21:07)
[2022-09-12 03:29] LABS: PTT Heparin Drip 50.7 SEC (53-77.9)
[2022-09-12 03:36] VITALS: BP 138/87; PULSE 74; RESP 16; TEMP 36.2; O2SAT 96
[2022-09-12] MEDS: Heparin Sodium,Porcine 5,000 UNIT/ML VIAL 3300 UNIT IVPUSH ×2 (04:08→17:11)
[2022-09-12 06:00] VITALS: BMI 29.2
[2022-09-12 07:27] VITALS: BP 164/84; PULSE 74; RESP 20; TEMP 36.4; O2SAT 95
[2022-09-12] MEDS: Docusate Sodium 100 MG CAPSULE PO ×2 (09:01→21:07)
[2022-09-12] MEDS: hydrALAZINE HCl 10 MG TABLET PO ×3 (09:01→21:07)
[2022-09-12] MEDS: FLUoxetine HCl 20 MG CAPSULE PO (09:01)
[2022-09-12] MEDS: Metoprolol Tartrate 12.5 MG HALFTAB PO ×2 (09:01→21:07)
[2022-09-12] MEDS: Ferrous Sulfate 324 MG TABLET.DR PO (09:02)
[2022-09-12] MEDS: Valsartan 40 MG TABLET PO ×2 (09:02→21:07)
[2022-09-12] MEDS: allopurinoL 100 MG TABLET PO (09:02)
[2022-09-12] MEDS: Cholecalciferol (Vitamin D3) 25 MCG TABLET PO (09:02)
[2022-09-12] MEDS: Aspirin Enteric Coated 81 MG TABLET.DR PO (09:02)
[2022-09-12] MEDS: Clopidogrel Bisulfate 75 MG TABLET PO (09:02)
[2022-09-12 10:19] LABS: PTT Heparin Drip 81.9 SEC (53-77.9)
[2022-09-12 11:44] VITALS: BP 151/84; PULSE 60; RESP 20; TEMP 36.5; O2SAT 98
--- NOTE | 2022-09-12 12:49 | P.PNIM_ITS ---
Subjective Subjective Date of Service: 09/12/22 Interval History: nstemi Review of Systems similar to yesterday Does not seem to be any discomfort, no cough today No fever or chills. Physical Exam Vital Signs: Vital Signs: Last Vital Signs Temp 97.7 F 09/12/22 11:44 Pulse 60 09/12/22 11:44 Resp 20 09/12/22 11:44 BP 151/84 H 09/12/22 11:44 Pulse Ox 98 09/12/22 11:44 O2 Del Method Room Air 09/12/22 11:44 BMI result Body Mass Index 29.2 Appearance: Alert,awake ,seems at baseline.? not in distress.? cvs: rrr, [id number] . res: clear to auscultation ,no rhonchii or wheezing abd: no rebound or guarding ,nt, bs present. ext pulses present , no cyanosis . neuro: nonfocal. Objective Data Active Medications Acetaminophen (Acetaminophen 325 Mg Tablet) 650 mg PO Q6H PRN PRN Reason: Pain, Mild (Pain Scale 1-3) Allopurinol (Allopurinol 100 Mg Tablet) 100 mg PO DAILY [facility] Last Admin: 09/12/22 09:02 Dose: 100 mg Documented By: VANDANA Aspirin (Aspirin Enteric Coated 81 Mg Tablet.) 81 mg PO DAILY [facility] Last Admin: 09/12/22 09:02 Dose: 81 mg Documented By: VANDANA Atorvastatin Calcium (Atorvastatin Calcium 80 Mg Tablet) 80 mg PO BEDTIME [facility] Last Admin: 09/11/22 21:08 Dose: 80 mg Documented By: MYLENE Clopidogrel Bisulfate (Clopidogrel Bisulfate 75 Mg Tablet) 75 mg PO DAILY [facility] Last Admin: 09/12/22 09:02 Dose: 75 mg Documented By: VANDANA Docusate Sodium (Docusate Sodium 100 Mg Capsule) 100 mg PO DAILY PRN PRN Reason: Constipation Docusate Sodium (Docusate Sodium 100 Mg Capsule) 100 mg PO BID [facility] Last Admin: 09/12/22 09:01 Dose: 100 mg Documented By: VANDANA Ferrous Sulfate (Ferrous Sulfate 324 Mg Tablet.) 324 mg PO DAILY [facility] Last Admin: 09/12/22 09:02 Dose: 324 mg Documented By: VANDANA Fluoxetine HCl (Fluoxetine Hcl 20 Mg Capsule) 20 mg PO DAILY [facility] Last Admin: 09/12/22 09:01 Dose: 20 mg Documented By: VANDANA Guaifenesin (Guaifenesin 100 Mg/5 Ml Liquid) 10 ml PO Q4H [facility] Last Admin: 09/12/22 11:09 Dose: Not Given Documented By: VANDANA Non-Admin Reason: Patient Asleep Heparin Sodium (Porcine) (Heparin Sodium,Porcine 5,000 Unit/Ml Vial) 3,300 unit 40 unit/kg (3300 unit) IVPUSH PROTOCOL BOLUS PRN; Protocol PRN Reason: 40 unit/kg - Heparin Protocol Last Admin: 09/12/22 04:08 Dose: 3,300 unit Documented By: MYLENE Heparin Sodium (Porcine) (Heparin Sodium,Porcine 5,000 Unit/Ml Vial) 6,500 unit 80 unit/kg (6500 unit) IVPUSH PROTOCOL BOLUS PRN; Protocol PRN Reason: 80 unit/kg - Heparin Protocol Hydralazine HCl (Hydralazine Hcl 10 Mg Tablet) 10 mg PO QID [facility]; Protocol Last Admin: 09/12/22 09:01 Dose: 10 mg Documented By: VANDANA Heparin Sodium/Sodium Chloride (Heparin Sodium,Porcine/1/2ns) 25,000 unit in 250 mls @ 0 mls/hr IVCONT .Q0M [facility]; Protocol Last Titration: 09/12/22 10:33 Dose: 8 units/kg/hr, 6.53 mls/hr Documented By: VANDANA Co-signed By: YARI Piperacillin Sod/Tazobactam (Sod 4.5 gm/ Sodium Chloride) 100 mls @ 200 mls/hr IV Q6H [facility] Last Infusion: 09/12/22 09:46 Dose: 0 mls/hr Documented By: VANDANA Metoprolol Tartrate (Metoprolol Tartrate 12.5 Mg Halftab) 12.5 mg PO BID [facility]; Protocol Last Admin: 09/12/22 09:01 Dose: 12.5 mg Documented By: VANDANA Nitroglycerin (Nitroglycerin 0.4 Mg Tab.Subl) 0.4 mg SUBLINGUAL Q5MX3 PRN PRN Reason: Chest Pain Omeprazole (Omeprazole 20 Mg Capsule.Dr) 20 mg PO BID@0630,1630 [facility] Last Admin: 09/12/22 05:57 Dose: Not Given Documented By: MYLENE Non-Admin Reason: Patient Condition Contraindication Ondansetron HCl (Ondansetron Hcl 4 Mg/2 Ml Vial) 4 mg IVPUSH Q8H PRN PRN Reason: Nausea and Vomiting Sodium Chloride (0.9 % Sodium Chloride Flush 3 Ml Syringe) 3 ml IVFLUSH QSHIFT [facility] Last Admin: 09/12/22 09:00 Dose: Not Given Documented By: VANDANA Non-Admin Reason: IV Running Valsartan (Valsartan 40 Mg Tablet) 40 mg PO BID [facility]; Protocol Last Admin: 09/12/22 09:02 Dose: 40 mg Documented By: VANDANA Vitamin D (Cholecalciferol (Vitamin D3) 25 Mcg Tablet) 25 mcg PO DAILY [facility] Last Admin: 09/12/22 09:02 Dose: 25 mcg Documented By: VANDANA Labs 09/11/22 07:13 09/10/22 07:33 Labs: Laboratory Results - last 24 hr 09/11/22 09/11/22 09/12/22 14:58 20:38 03:12 aPTT Heparin Protocol 36.7 L 65.5 D 50.7 L D 09/12/22 09:56 aPTT Heparin Protocol 81.9 H D Microbiology Microbiology Results: Microbiology 09/10/22 Unknown Urine Culture - Final Urine clean catch - Urine de [place] top Escherichia coli 09/09/22 22:55 Blood Culture - Preliminary Blood - Venous No growth after 48 hours. 09/09/22 22:45 Blood Culture - Preliminary Blood - Venous No growth after 48 hours. Assessment and Plan (1) Acute myocardial infarction: Status: Acute Plan 62-year-old female with past medical history of Alzheimer's dementia, multiple CVA, hypertension, presents the hospital with nausea vomiting, found to have ACS Nstemi/new LBBB- with EKG changes of new LBBB, as well as significantly elevated troponin patient is nonverbal at baseline trops trending down echo:Normal left ventricular cavity size. There is mildly increased left ventricular wall thickness. The left ventricular systolic function is severely decreased. The visually estimated ejection fraction is between 25 30%. Spectral Doppler is indicative of an impaired relaxation filling pattern. Elevated filling pressures. E/E prime ratio is >15, consistent with elevated filling pressure ?seen by cardio: Recommended to continue conservative therapy with IV heparin/pt-ptt per protocol, aspirin,plavix, beta-jasiel, statin,added valsartan . not a catheterization candidate sepsis- present on arrival,thought to be likely secondary to UTI leukocytosis improved , normal lactic acid, no fever overnight blood culture neg@24hrs ,urine culture grew : ecoli-senstive to ceftriaxone. hemodynamically stable, continue with IV antibiotics zosyn started on 09/10/22- switched to ceftriaxone on 09/12/22 . hypertension- stable continue antihypertensives DVT prophylaxis:? Heparin ggt d/w Her daughterin detail -accord with conservative management as above ,still considering about goal of care. ongoing hospitisaion need : Nstemi-conservative medical management -IV heparin as well as needed PT PTT monitoring 72 hrs, telemetry monitoring. Time Spent With Patient Time: Total time managing care of this patient today ____ minutes. Quality Stroke Does the patient have a stroke diagnosis?: No VTE Prior VTE?: No VTE Risk Level:: Medical - moderate - high VTE Device Contraindication: Treatment Not Indicated VTE Drug Contraindication: N/A - Med Ordered
[2022-09-12 15:22] VITALS: BP 158/107; PULSE 65; RESP 20; TEMP 36.6; O2SAT 97
[2022-09-12] MEDS: Omeprazole 20 MG CAPSULE.DR PO (15:25)
[2022-09-12] MEDS: 0.9 % Sodium Chloride Flush 3 ML SYRINGE IVFLUSH (15:26)
[2022-09-12] MEDS: cefTRIAXone sodium 1 GM in 0.9 % Sodium Chloride 50 ML IV (15:30)
[2022-09-12 16:28] LABS: PTT Heparin Drip 49.2 SEC (53-77.9)
[2022-09-12 19:12] VITALS: BP 166/83; PULSE 63; RESP 20; TEMP 36.7; O2SAT 98
[2022-09-12] MEDS: Heparin Sodium,Porcine/1/2NS 25,000 UNIT/250 ML IV.SOLN 8.17 UNIT IVCONT (19:57)
[2022-09-12] MEDS: Atorvastatin Calcium 80 MG TABLET PO (21:07)
[2022-09-12 23:41] LABS: PTT Heparin Drip 71.6 SEC (53-77.9)
[2022-09-12 23:53] VITALS: BP 161/91; PULSE 63; RESP 16; TEMP 36.4; O2SAT 94
[2022-09-13] MEDS: 0.9 % Sodium Chloride Flush 3 ML SYRINGE IVFLUSH ×4 (00:53→21:54)
[2022-09-13 03:43] VITALS: BP 168/88; PULSE 71; RESP 20; TEMP 36.6; O2SAT 98
[2022-09-13 06:00] VITALS: BMI 28.9
[2022-09-13] MEDS: Omeprazole 20 MG CAPSULE.DR PO ×2 (06:00→16:07)
[2022-09-13] MEDS: guaiFENesin 100 MG/5 ML LIQUID 10 ML PO ×5 (06:03→22:46)
[2022-09-13 06:16] LABS: PTT Heparin Drip 69.5 SEC (53-77.9)
--- NOTE | 2022-09-13 07:44 | HO.PM.IMPN ---
Subjective Subjective Date of Service: 09/13/22 Interval History: nstemi Review of Systems same Physical Exam Vital Signs: Vital Signs: Last Vital Signs Temp 97.9 F 09/13/22 03:43 Pulse 71 09/13/22 03:43 Resp 20 09/13/22 03:43 BP 168/88 H 09/13/22 03:43 Pulse Ox 98 09/13/22 03:43 O2 Del Method Room Air 09/13/22 03:43 BMI result Body Mass Index 28.9 Appearance: Alert,awake ,seems at baseline.? not in distress.? cvs: rrr, [id number] . res: clear to auscultation ,no rhonchii or wheezing abd: no rebound or guarding ,nt, bs present. ext pulses present , no cyanosis . neuro: nonfocal. Objective Data Active Medications Acetaminophen (Acetaminophen 325 Mg Tablet) 650 mg PO Q6H PRN PRN Reason: Pain, Mild (Pain Scale 1-3) Allopurinol (Allopurinol 100 Mg Tablet) 100 mg PO DAILY [facility] Last Admin: 09/12/22 09:02 Dose: 100 mg Documented By: VANDANA Aspirin (Aspirin Enteric Coated 81 Mg Tablet.) 81 mg PO DAILY [facility] Last Admin: 09/12/22 09:02 Dose: 81 mg Documented By: VANDANA Atorvastatin Calcium (Atorvastatin Calcium 80 Mg Tablet) 80 mg PO BEDTIME [facility] Last Admin: 09/12/22 21:07 Dose: 80 mg Documented By: CAESAR Clopidogrel Bisulfate (Clopidogrel Bisulfate 75 Mg Tablet) 75 mg PO DAILY [facility] Last Admin: 09/12/22 09:02 Dose: 75 mg Documented By: VANDANA Docusate Sodium (Docusate Sodium 100 Mg Capsule) 100 mg PO DAILY PRN PRN Reason: Constipation Docusate Sodium (Docusate Sodium 100 Mg Capsule) 100 mg PO BID [facility] Last Admin: 09/12/22 21:07 Dose: 100 mg Documented By: CAESAR Ferrous Sulfate (Ferrous Sulfate 324 Mg Tablet.) 324 mg PO DAILY [facility] Last Admin: 09/12/22 09:02 Dose: 324 mg Documented By: VANDANA Fluoxetine HCl (Fluoxetine Hcl 20 Mg Capsule) 20 mg PO DAILY [facility] Last Admin: 09/12/22 09:01 Dose: 20 mg Documented By: VANDANA Guaifenesin (Guaifenesin 100 Mg/5 Ml Liquid) 10 ml PO Q4H [facility] Last Admin: 09/13/22 06:03 Dose: 10 ml Documented By: LISETH Heparin Sodium (Porcine) (Heparin Sodium,Porcine 5,000 Unit/Ml Vial) 3,300 unit 40 unit/kg (3300 unit) IVPUSH PROTOCOL BOLUS PRN; Protocol PRN Reason: 40 unit/kg - Heparin Protocol Last Admin: 09/12/22 17:11 Dose: 3,300 unit Documented By: CAESAR Heparin Sodium (Porcine) (Heparin Sodium,Porcine 5,000 Unit/Ml Vial) 6,500 unit 80 unit/kg (6500 unit) IVPUSH PROTOCOL BOLUS PRN; Protocol PRN Reason: 80 unit/kg - Heparin Protocol Hydralazine HCl (Hydralazine Hcl 10 Mg Tablet) 10 mg PO QID [facility]; Protocol Last Admin: 09/12/22 21:07 Dose: 10 mg Documented By: CAESAR Heparin Sodium/Sodium Chloride (Heparin Sodium,Porcine/1/2ns) 25,000 unit in 250 mls @ 0 mls/hr IVCONT .Q0M [facility]; Protocol Last Titration: 09/13/22 06:45 Dose: 10 units/kg/hr, 8.17 mls/hr Documented By: LISETH Co-signed By: ROMANA Ceftriaxone Sodium 1 gm/ (Sodium Chloride) 50 mls @ 100 mls/hr IV Q24H [facility] Last Infusion: 09/12/22 17:12 Dose: 0 mls/hr Documented By: CAESAR Metoprolol Tartrate (Metoprolol Tartrate 12.5 Mg Halftab) 12.5 mg PO BID [facility]; Protocol Last Admin: 09/12/22 21:07 Dose: 12.5 mg Documented By: CAESAR Nitroglycerin (Nitroglycerin 0.4 Mg Tab.Subl) 0.4 mg SUBLINGUAL Q5MX3 PRN PRN Reason: Chest Pain Omeprazole (Omeprazole 20 Mg Capsule.Dr) 20 mg PO BID@0630,1630 [facility] Last Admin: 09/13/22 06:00 Dose: 20 mg Documented By: LISETH Ondansetron HCl (Ondansetron Hcl 4 Mg/2 Ml Vial) 4 mg IVPUSH Q8H PRN PRN Reason: Nausea and Vomiting Sodium Chloride (0.9 % Sodium Chloride Flush 3 Ml Syringe) 3 ml IVFLUSH QSHIFT [facility] Last Admin: 09/13/22 00:53 Dose: 3 ml Documented By: LISETH Valsartan (Valsartan 40 Mg Tablet) 40 mg PO BID [facility]; Protocol Last Admin: 09/12/22 21:07 Dose: 40 mg Documented By: CAESAR Vitamin D (Cholecalciferol (Vitamin D3) 25 Mcg Tablet) 25 mcg PO DAILY [facility] Last Admin: 09/12/22 09:02 Dose: 25 mcg Documented By: VANDANA Labs 09/11/22 07:13 09/10/22 07:33 Labs: Laboratory Results - last 24 hr 09/12/22 09/12/22 09/12/22 09:56 16:10 23:24 aPTT Heparin Protocol 81.9 H D 49.2 L D 71.6 D 09/13/22 05:57 aPTT Heparin Protocol 69.5 Microbiology Microbiology Results: Microbiology 09/10/22 Unknown Urine Culture - Final Urine clean catch - Urine de [place] top Escherichia coli Assessment and Plan (1) Acute myocardial infarction: Status: Acute (2) UTI (urinary tract infection): Status: Acute Plan 62-year-old female with past medical history of Alzheimer's dementia, multiple CVA, hypertension, presents the hospital with nausea vomiting, found to have ACS ?Nstemi/new LBBB- with EKG changes of new LBBB, as well as significantly elevated troponin ?patient is nonverbal at baseline trops trending down echo:Normal left ventricular cavity size.? There is mildly increased left ventricular wall thickness.? The left ventricular systolic function is severely decreased.? The visually estimated ejection fraction is between 25 30%.? Spectral Doppler is indicative of an impaired relaxation filling pattern.? Elevated filling pressures.? E/E prime ratio is >15, consistent with elevated filling pressure ?seen by cardio: Recommended to continue conservative therapy with IV heparin/pt-ptt per protocol, aspirin,plavix, beta-jasiel, statin,adjusted valsartan . ?not a catheterization candidate ?sepsis- present on arrival,thought to be likely secondary to UTI ?leukocytosis improved , normal lactic acid, no fever overnight blood culture neg@24hrs ,urine culture grew : ecoli-senstive to ceftriaxone. hemodynamically stable, continue with IV antibiotics zosyn started on 09/10/22-switched to ceftriaxone on 09/12/22 .switch to po ceftin upon discharge . hypertension- stable continue antihypertensives DVT prophylaxis:? Heparin ggt d/w Her daughterin detail -accord with conservative management as above ,still considering about goal of care. ongoing hospitisaion need : Nstemi-conservative medical management -IV heparin as well as needed PT PTT monitoring 72 hrs, telemetry monitoring. Time Spent With Patient Time: Total time managing care of this patient today ____ minutes. Quality Stroke Does the patient have a stroke diagnosis?: No VTE Prior VTE?: No VTE Risk Level:: Medical - moderate - high VTE Device Contraindication: Treatment Not Indicated VTE Drug Contraindication: N/A - Med Ordered
[2022-09-13 07:47] VITALS: BP 136/60; PULSE 75; RESP 19; TEMP 36.3; O2SAT 95
[2022-09-13] MEDS: Clopidogrel Bisulfate 75 MG TABLET PO (09:13)
[2022-09-13] MEDS: Aspirin Enteric Coated 81 MG TABLET.DR PO (09:13)
[2022-09-13] MEDS: hydrALAZINE HCl 10 MG TABLET PO ×4 (09:13→21:54)
[2022-09-13] MEDS: allopurinoL 100 MG TABLET PO (09:13)
[2022-09-13] MEDS: Docusate Sodium 100 MG CAPSULE PO ×2 (09:13→21:55)
[2022-09-13] MEDS: FLUoxetine HCl 20 MG CAPSULE PO (09:13)
[2022-09-13] MEDS: Metoprolol Tartrate 12.5 MG HALFTAB PO ×2 (09:13→21:54)
[2022-09-13] MEDS: Ferrous Sulfate 324 MG TABLET.DR PO (09:13)
[2022-09-13] MEDS: Cholecalciferol (Vitamin D3) 25 MCG TABLET PO (09:13)
--- NOTE | 2022-09-13 10:22 | MHC.CM.PN ---
Per ROUNDS discussion, Patient is on a Heparin Drip and is not yet medically cleared for dc. Home is the goal and CM will continue to follow.
[2022-09-13] MEDS: Valsartan 40 MG TABLET PO (10:35)
[2022-09-13 11:49] VITALS: BP 166/97; PULSE 55; RESP 20; TEMP 36.2; O2SAT 98
[2022-09-13] MEDS: cefTRIAXone sodium 1 GM in 0.9 % Sodium Chloride 50 ML IV (12:24)
[2022-09-13 15:51] VITALS: BP 180/80; RESP 20; TEMP 36.3; O2SAT 96
[2022-09-13] MEDS: amLODIPine Besylate 2.5 MG TABLET PO (17:04)
[2022-09-13 20:00] VITALS: BP 154/80; PULSE 66; RESP 20; TEMP 36.1; O2SAT 97
[2022-09-13] MEDS: Valsartan 80 MG TABLET PO (21:54)
[2022-09-13] MEDS: Atorvastatin Calcium 80 MG TABLET PO (21:54)
[2022-09-13 23:45] VITALS: BP 165/94; PULSE 59; RESP 20; TEMP 36.2; O2SAT 97
[2022-09-14] MEDS: guaiFENesin 100 MG/5 ML LIQUID 10 ML PO ×2 (02:56→12:13)
[2022-09-14 03:14] VITALS: BP 155/89; PULSE 69; RESP 18; TEMP 36.1; O2SAT 97
[2022-09-14] MEDS: Omeprazole 20 MG CAPSULE.DR PO (05:39)
[2022-09-14 06:00] VITALS: BMI 28.4
[2022-09-14 07:40] VITALS: BP 156/92; PULSE 60; RESP 20; TEMP 36.2; O2SAT 96
[2022-09-14] MEDS: 0.9 % Sodium Chloride Flush 3 ML SYRINGE IVFLUSH (09:42)
[2022-09-14] MEDS: allopurinoL 100 MG TABLET PO (09:42)
[2022-09-14] MEDS: Cholecalciferol (Vitamin D3) 25 MCG TABLET PO (09:42)
[2022-09-14] MEDS: hydrALAZINE HCl 10 MG TABLET PO ×2 (09:43→13:08)
[2022-09-14] MEDS: Ferrous Sulfate 324 MG TABLET.DR PO (09:43)
[2022-09-14] MEDS: FLUoxetine HCl 20 MG CAPSULE PO (09:43)
[2022-09-14] MEDS: Clopidogrel Bisulfate 75 MG TABLET PO (09:43)
[2022-09-14] MEDS: Metoprolol Tartrate 12.5 MG HALFTAB PO (09:44)
[2022-09-14] MEDS: Valsartan 80 MG TABLET PO (09:44)
[2022-09-14] MEDS: Aspirin Enteric Coated 81 MG TABLET.DR PO (09:48)
[2022-09-14 11:34] VITALS: BP 147/87; PULSE 74; RESP 20; TEMP 36.8; O2SAT 98
--- NOTE | 2022-09-14 12:56 | PM.DS ---
DS: Providers Provider Date of Service: 09/14/22 Date of admission: 09/10/22 00:50 Primary care physician: Marcia Morales MD Consults: 09/10/22 00:47 Consult to Cardiology Routine Consulting Provider: [facility] [place] Cardiovascular Services Reason for consultation: ACS Has provider been notified: Yes DS: Diagnosis Discharge Diagnosis (1) Acute myocardial infarction: Status: Acute (2) UTI (urinary tract infection): Status: Acute DS: Summary Hospital Course Hospital Course: Chief Complaint: nausea, vomiting 62-year-old with history of Alzheimer's dementia, multiple cerebral infarcts nonverbal at baseline, HLD, is brought in to the hospital by her daughter for evaluation of nausea and multiple episodes of vomiting and diaphoresis.? Patient's daughter reports that all the sudden and mother started sweating, having multiple episodes of nausea vomiting, therefore she called the ambulance and brought her mother into the hospital.? She had further multiple episodes of vomiting while in the ED. daughter reports that she does verbalize through facial cues if she has any pain but she did not notice any such cues from her mother, when asking her patient denies any pain in the chest, abdomen, and no urinary symptoms.? No lower extremity edema, no trouble breathing. Unable to get complete review of system due to patient's dementia On her arrival To the ED patient high to have a temp of 102.1 degrees, labs are significant for WBC count of 14.7, potassium of 2.7, magnesium of 1.3, troponin of 1427 EKG showed new left bundle branch block, case was discussed with Cardiology, given patient's past medical history as well as her advanced dementia patient not a candidate for catheterization therefore will be managed medically a started on heparin Chest x-ray negative, UA pending Hospital course: patient presented with nausea and vomitting and found to have NSTEMI wth elevated troponin, new LBBB. She was evaluated by cardiology and recommended medical management with heparin for 72 hours, ASA, and Plavix and beta jasiel, statin as she is not a candiated for cardiac cath. She had an echo :Normal left ventricular cavity size.? There is mildly increased left ventricular wall thickness.? The left ventricular systolic function is severely decreased.? The visually estimated ejection fraction is between 25 30%.? Spectral Doppler is indicative of an impaired relaxation filling pattern.? Elevated filling pressures.? E/E prime ratio is >15, consistent with elevated filling pressure. She presently has no chest pain, no shortness of breath and will go home sepsis- present on arrival,thought to be likely secondary to UTI ?leukocytosis improved , normal lactic acid, no fever overnight blood culture neg@24hrs ,urine culture grew : ecoli-senstive to ceftriaxone. Treated with Ceftriaxone in the hospital and will discharge with oral ceftin upon discharge hypertension- stable continue antihypertensives Time Spent with Patient Time attestation: Total time managing care of this patient today ____ minutes. Discharge coordination time: Greater than 30 minutes Quality: Safe Use of Opioids Does Pt have an Active Cancer Diagnosis on the Problem List?: No Quality: Stroke Does the patient have a stroke diagnosis?: No Physical Exam Vital Signs: Vital Signs: Last Vital Signs Temp 98.3 F 09/14/22 11:34 Pulse 74 09/14/22 11:34 Resp 20 09/14/22 11:34 BP 147/87 H 09/14/22 11:34 Pulse Ox 98 09/14/22 11:34 O2 Del Method Room Air 09/14/22 11:34 BMI result Body Mass Index 28.4 DS: Data Data Completed and Pending Labs on day of discharge: Preliminary micro results at discharge 09/09/22 22:55 Blood Culture - Preliminary Blood - Venous No growth after 48 hours. 09/09/22 22:45 Blood Culture - Preliminary Blood - Venous No growth after 48 hours. Discharge Plan Discharge Anticipated Discharge Date/Time: 09/14/22 11:07 Patient Disposition: Home, Self-Care Discharge Diagnosis: NSTEMI, UTI, sepsis Referrals: Marcia Morales MD [Primary Care Provider] - 1 Week Discharge Medications: New metoprolol tartrate 25 mg tablet 12.5 mg PO BID Qty: 30 0RF Continued atorvastatin 80 mg tablet 1 tab PO BEDTIME allopurinol 100 mg tablet 1 tab PO QAM ferrous sulfate [FeroSul] 325 mg (65 mg iron) tablet 1 tab PO DAILY docusate sodium 100 mg capsule 1 cap PO BID omeprazole 20 mg capsule,delayed release(DR/EC) 1 cap PO BID albuterol sulfate [ProAir HFA] 90 mcg/actuation HFA aerosol inhaler 2 puff INHALATION Q4-6H PRN (Reason: Wheezing) lisinopril 40 mg tablet 1 tab PO QAM fluoxetine 20 mg capsule 1 cap PO QAM cholecalciferol (vitamin D3) [Vitamin D3] 25 mcg (1,000 unit) capsule 1 cap PO QAM clopidogrel [Plavix] 75 mg tablet 75 mg PO DAILY Qty: 28 0RF hydralazine 10 mg tablet 10 mg PO QID aspirin 81 mg tablet,delayed release (DR/EC) 81 mg PO QAM Discharge Orders: Discharge Order (Routine); Ordered 09/14/22 Ordered By: Guillermo Pfeiffer Diet: Advance to usual diet Activity on Discharge: As tolerated Stand Alone Forms: Patient Portal Discharge page Care Plan Goals: full recovery from nstemi, sepsis and uti Health Concerns: heart attack, uti and sepsis Plan of Treatment: for heart attack medical management wit aspirin and plavix that you already take for UTI take Ceftin ( cefuroxime) for 5 days Assessment: as
[2022-09-14] MEDS: cefTRIAXone sodium 1 GM in 0.9 % Sodium Chloride 50 ML IV (13:08)
--- NOTE | 2022-09-14 13:18 | MHC.CM.PN ---
Pt medically cleared for D/C home, pt has her own transport.
== END 2022-09-14 15:46 | disposition home or self-care (01) | DRG 720 ==
LOC: HO.ED 09-10 00:24 → HO.EDOVER 09-10 00:57 → HO.IMC 09-10 16:23
PROVIDERS: Internal Medicine; Admitting Provider Internal Medicine; Emergency Provider Internal Medicine; PCP Family Medicine; Visit Provider Internal Medicine
DX: A41.9 Sepsis, unspecified organism (principal); I21.4 Non-ST elevation (NSTEMI) myocardial infarction; G30.9 Alzheimer's disease, unspecified; N39.0 Urinary tract infection, site not specified; R47.01 Aphasia; F02.80 Dementia in other diseases classified elsewhere, unspecified severity, without behavioral disturbance, psychotic disturbance, mood disturbance, and anxiety; E83.42 Hypomagnesemia; E11.9 Type 2 diabetes mellitus without complications; B96.20 Unspecified Escherichia coli [E. coli] as the cause of diseases classified elsewhere; E87.6 Hypokalemia; I44.7 Left bundle-branch block, unspecified; R32 Unspecified urinary incontinence; I10 Essential (primary) hypertension; Z20.822 Contact with and (suspected) exposure to COVID-19; Z99.3 Dependence on wheelchair; Z79.02 Long term (current) use of antithrombotics/antiplatelets; Z79.82 Long term (current) use of aspirin; Z79.899 Other long term (current) drug therapy
CPT/HCPCS: 36415; 71045; 80053; 81001; 82947; 83605; 83690; 83735; 84484; 85027; 85610; 85730; 87040; 87086; 87088; 87186; 87635; 93005; 93306; 99285; J0696; J1643; J2405; J2543; J3475; Q9957

== ENCOUNTER 2022-09-29 14:49 | Outpatient (REF) | payer MEDICAID, SELFPAY ==
--- NOTE | ~2022-09-29 | XR_ITS ---
EXAMINATION: XR CHEST CLINICAL INFORMATION: Following discharge from hospital after recent stroke and [place], patient presents with cough and wheezing COMPARISON: None available. TECHNIQUE: 2 views of the chest were obtained. FINDINGS: Heart and mediastinum within normal limits. Aorta is tortuous. No vascular congestion, consolidations or effusions. Mild degenerative changes. Cholecystectomy clips. XR/XR chest 2V IMPRESSION: No acute cardiopulmonary disease.
== END 2022-09-29 14:50 | disposition home or self-care (01) ==
LOC: HO.HHCX 14:49
PROVIDERS: Visit Provider Student in an Organized Health Care Education/Training Program
DX: R06.2 Wheezing (principal)
CPT/HCPCS: 71046

== ENCOUNTER 2022-11-08 14:15 | Outpatient (REF) | payer MEDICAID, SELFPAY ==
--- NOTE | ~2022-11-08 | MM_ITS ---
EXAMINATION: MM SCREENING DIGITAL BREAST TOMOSYNTHESIS, BILATERAL CLINICAL INFORMATION: Screening. Asymptomatic. The lifetime risk of breast cancer based on the Tyrer-Cuzick Model is 15.1%. COMPARISON: Mammography: This study is compared with prior exams dating back to 2015. TECHNIQUE: Digital breast tomosynthesis is performed in both the craniocaudal and mediolateral oblique views along with computer-aided detection (CAD). Synthesized 2D images are generated from the tomosynthesis. FINDINGS: There are scattered areas of fibroglandular density (ACR BI-RADS breast composition Category b). There is a group of calcification in the upper outer quadrant of the superficial third of the left breast. Additional mammographic imaging of this finding with magnification is advised. In the right breast, there are no significant masses, abnormal calcifications, or other abnormalities. MM/MM tomosynthesis screening BI IMPRESSION: Left breast calcifications warrant additional mammographic imaging magnification. No mammographic signs of malignancy right breast. ASSESSMENT: BI-RADS BI-RADS 0 - Incomplete: Needs additional Imaging. RECOMMENDATION: Additional views of the left breast. Radiology department staff will contact the patient for additional imaging. Additional Imaging required This examination should not preclude the clinical evaluation of a suspicious palpable abnormality. This patient's information was entered into a reminder system with a target due date for their next mammogram.
== END 2022-11-08 14:16 | disposition home or self-care (01) ==
LOC: HO.MAMMO 14:15
PROVIDERS: PCP Family Medicine; Visit Provider Family Medicine
DX: Z12.31 Encounter for screening mammogram for malignant neoplasm of breast (principal)
CPT/HCPCS: 77063; 77067

== ENCOUNTER → 2022-11-08 14:15 | Outpatient (BNV) | payer MEDICAID, SELFPAY | PROVIDERS: PCP Family Medicine; Visit Provider Radiology Diagnostic Radiology | DX: Z12.31 Encounter for screening mammogram for malignant neoplasm of breast (principal) | CPT/HCPCS: 77063; 77067 ==

== ENCOUNTER 2023-01-04 14:45 | Outpatient (REF) | payer MEDICAID, SELFPAY ==
--- NOTE | ~2023-01-04 | MM_ITS ---
EXAMINATION: MM DIAGNOSTIC DIGITAL MAMMOGRAPHY, LEFT CLINICAL INFORMATION: Follow-up calcifications left breast seen on screening exam. COMPARISON: Mammography: 11/08/2022. 05/30/2018, 08/09/2016, 03/14/2015. TECHNIQUE: Digital mammography is performed in the following views: The patient is confined to a wheelchair, significantly limiting the technologist ability to obtain adequate imaging. Only a left ML magnification view could be obtained. The cc view could not be definitively obtained. FINDINGS: There are scattered areas of fibroglandular density (ACR BI-RADS breast composition Category b). Group of calcification in the upper outer quadrant of the left breast has a somewhat coarse in morphology, with a circular density underlying, highly suspect for calcifying oil cyst or fibroadenoma. Findings are probably benign. Six-month interval follow-up left breast magnification views recommended to assess for stability or interval change. Results are provided to the patient at time of visit by the technologist. MM/MM added views LT IMPRESSION: Probably benign calcifications left breast. Six-month interval follow-up recommended to include standard magnification views. ASSESSMENT: BI-RADS BI-RADS 3 - Probably benign finding(s) - 6 month follow-up suggested RECOMMENDATION: 6 Month F/U This patient's information was entered into a reminder system with a target due date for their next mammogram.
== END 2023-01-04 14:46 | disposition home or self-care (01) ==
LOC: HO.MAMMO 14:45
PROVIDERS: PCP Family Medicine; Visit Provider Family Medicine
DX: R92.1 Mammographic calcification found on diagnostic imaging of breast (principal)
CPT/HCPCS: 77065

== ENCOUNTER 2023-03-31 14:58 | Emergency (ER) | payer MEDICAID, SELFPAY ==
--- NOTE | ~2023-03-31 | XR_ITS ---
EXAMINATION: XR FOOT, LEFT CLINICAL INFORMATION: Pain and swelling with discoloration. COMPARISON: None available. TECHNIQUE: AP, lateral, and oblique views of the left foot. FINDINGS: The bones and soft tissues are normal. No fracture. Alignment is anatomic. Joint spaces are maintained. There is diffuse osteopenia. The ankle mortise and subtalar joints are normal. There is a moderate size retrocalcaneal and calcaneal heel enthesophyte. XR/XR foot LT min 3V IMPRESSION: 1. No acute fracture or dislocation. 2. Moderate size retrocalcaneal and calcaneal heel enthesophytes. 3. There is diffuse osteopenia.
[2023-03-31 15:13] VITALS: BP 148/92; PULSE 82; O2SAT 94
--- NOTE | 2023-03-31 16:32 | ED_ITS ---
HPI - Extremity Injury (Lower) General Chief Complaint: Extremity Injury, Lower Stated Complaint: L FOOT/HEEL PAIN PER EMS Time Seen by Provider: 03/31/23 16:53 Source: patient and family Mode of arrival: wheelchair Limitations: altered mental status History of Present Illness HPI Narrative: 62 yo female with history of CVA, dementia here with waking with left heel pain and discoloration per daughter. She reports patient sleeps with heels directly on the bed, they do not use and heel padding or elevation. No known injury or trauma. No fevers. Patient unable to provide HPI d/t baseline Related Data Home Medications Medication Instructions Recorded Confirmed albuterol sulfate 90 mcg/actuation 2 puff inhalation Q4-6H PRN 03/18/22 09/10/22 aerosol inhaler (ProAir HFA) Wheezing allopurinol 100 mg tablet 1 tab PO QAM 03/18/22 09/10/22 atorvastatin 80 mg tablet 1 tab PO BEDTIME 03/18/22 09/10/22 cholecalciferol (vitamin D3) 25 1 cap PO QAM 03/18/22 09/10/22 mcg (1,000 unit) capsule (Vitamin D3) docusate sodium 100 mg capsule 1 cap PO BID constipation 03/18/22 09/10/22 ferrous sulfate 325 mg (65 mg 1 tab PO DAILY 03/18/22 09/10/22 iron) tablet (FeroSul) fluoxetine 20 mg capsule 1 cap PO QAM 03/18/22 09/10/22 lisinopril 40 mg tablet 1 tab PO QAM 03/18/22 09/10/22 omeprazole 20 mg capsule,delayed 1 cap PO BID 03/18/22 09/10/22 release aspirin 81 mg tablet,delayed 81 mg PO QAM 09/10/22 09/10/22 release hydralazine 10 mg tablet 10 mg PO QID blood pressure 09/10/22 09/10/22 Previous Rx's Medication Instructions Recorded clopidogrel 75 mg tablet (Plavix) 75 mg PO DAILY #28 tabs 03/19/22 cefdinir 250 mg/5 mL oral 250 mg (5 mL) PO Q12H #60 mL 09/14/22 suspension metoprolol tartrate 25 mg tablet 12.5 mg (1/2 x 25 mg) PO BID #30 09/14/22 tabs Allergies Allergy/AdvReac Type Severity Reaction Status Date / Time No Known Allergies Allergy Unverified 12/27/19 15:52 [No Known Allergies*] Review of Systems 2 Review of Systems: Yes Unobtainable due to mental status PMFSH Past Medical History Attestation statement: The following information was validated with the patient. Source: old records reviewed and nursing notes reviewed Medical History HLD (hyperlipidemia) Asthma HTN (hypertension) Diabetes Stroke Surgical History History of cholecystectomy Family History Family History Other Diabetes Social History Social History Household Members: Family Housing: House Unable to assess alcohol history related to: Unable to respond Alcohol intake: unknown Patient Tobacco Use Status: Never used Tobacco Advance Directives: No Advance Directives Information Provided: No service: No Current occupational status: disabled Physical Exam 2 Vital Signs: Vital Signs: Last Vital Signs Temp 97.9 F 03/31/23 17:01 Pulse 68 03/31/23 17:01 Resp 18 03/31/23 17:01 BP 169/85 H 03/31/23 17:01 Pulse Ox 97 03/31/23 17:01 O2 Del Method Room Air 03/31/23 17:01 BMI result Body Mass Index 29.3 Const: General: alert Limitations: altered mental status HEENT: Head: Yes normal to inspection Ears: hearing grossly normal bilaterally General nose exam: Normal external nose present Face and sinus: Yes normal facial exam Mouth: Normal oral and palatal mucosa present Throat: Yes posterior oropharynx normal Eyes: General: appearance normal, both eyes and all related structures P upils: Equal, round and reactive pupils present Neck: Neck: Yes normal visual inspection Chest: Chest palpation & inspection: normal inspection of the chest Resp: Effort & Inspection: normal respiratory effort Auscultation: clear to auscultation bilaterally Cardio: Rate: regular rate Rhythm: regular rhythm Peripheral pulses: P eripheral pulses 2+ throughout GI: Inspection: Yes normal to inspection Palpation (GI): Soft to palpation and nontender Auscultation: normal bowel sounds Back/Spine/Pelvis: Thoracic/Lumbar Spine: thoracic and lumbar spine normal to inspection Skin: General skin exam: no rashes or lesions noted Neuro: Cranial nerves: Yes Equal, round and reactive pupils present Extrem: Other: To the left heel there is a small abrasion with local tenderness. The skin has mild discoloration which has No warmth, erythema or swelling. Normal DP/PT pulses. Normal sensation. General: Yes normal to inspection Course Course Course Narrative: RME: 62 yo F w/PMHx HLD, Asthma, HTN, DM, CVA, HLD c/o L foot & heel pain x today. No reported injury. On ASA/Plavix +L foot with heel discoloration, foot/ankle swelling, NV intact. No erythema/warmth Labs, XRs ordered Full HPI, ROS and PE to be performed by primary ED provider. Medical Decision Making Medical Decision Making [facility] Narrative: 62 yo female with history of CVA, dementia here with waking with left heel pain and discoloration per daughter. She reports patient sleeps with heels directly on the bed, they do not use and heel padding or elevation. No known injury or trauma. No fevers. Patient unable to provide HPI To the left heel there is a small abrasion with local tenderness. The skin has mild discoloration which has No warmth, erythema or swelling. Normal DP/PT pulses. Normal sensation. Likely DTI d/t pressure Will check labs, X-ray Differential Diagnosis Differential Diagnoses: The differential diagnosis associated with the presentation includes DTI injury/trauma low concern for cellulitis, dvt Admission/Observation Consideration of admission/observation: Escalation of care including admission/observation considered no evidence of cellulitis requiring IV antibiotics and admission Lab Data [facility] Lab Attestation statement: I reviewed the patient's lab results. mildly elevated CRP likely nonspecific as clinically the patient has no signs of infection on exam. With a normal white count and no fever. 03/31/23 17:44 03/31/23 17:44 Labs: Lab Results 03/31/23 Range/Units 17:44 WBC 9.2 (4.8-10.8) X10*3/uL RBC 4.94 (4.20-5.50) X10*6/uL Hgb 14.8 (12.0-16.0) g/dl Hct 45.9 (37.0-47.0) % MCV 92.9 (80.0-98.0) fL MCH 30.0 (27.0-33.0) pg MCHC 32.2 (31.0-35.0) g/dl RDW 13.2 (11.0-16.0) % Plt Count 182 (160-400) X10*3/uL MPV 10.1 (9.4-12.3) fL Immature Gran % (Auto) 0.4 (0.0-0.4) % Neut % (Auto) 78.5 H (45-73) % Lymph % (Auto) 10.9 L (20-40) % Franklin % (Auto) 7.0 (2-11) % Eos % (Auto) 2.9 (0-4) % Baso % (Auto) 0.3 (0-2) % Lymph # (Auto) 1.0 L (1.2-4.9) X10*3/uL Franklin # (Auto) 0.7 (0.1-1.2) X10*3/uL Eos # (Auto) 0.3 (0.0-0.4) X10*3/uL Baso # (Auto) 0.0 (0.0-0.2) X10*3/uL Abs Immat Gran (auto) 0.04 H (0.00-0.03) X10*3/uL Absolute Neuts (auto) 7.4 (2.0-8.3) x10*3/uL Absolute Nucleated RBC 0.000 (0.0-0.012) X10*3/uL Nucleated RBC % (auto) 0.0 (0.0-0.2) /100WBC Smear Tech's Comments VERIFIED Sodium 141 (135-145) mmol/L Potassium 3.9 (3.3-5.1) mmol/L Chloride 106 (96-108) mmol/L Carbon Dioxide 22 (22-29) mmol/L Anion Gap 17 (12-20) BUN 17 H (9-16) mg/dL Creatinine 0.89 (0.5-1.4) mg/dL Estim Creat Clear Calc 61.9 Estimated GFR > 60 Random Glucose 114 (60-115) mg/dL Calcium 9.6 D (8.4-10.2) mg/dL C-Reactive Protein 8.10 H (< or = 0.50) mg/dL Independent Interpretation I performed an independent interpretation of an: Plain X-Ray Interpretation: I independently reviewed the x-ray which shows no acute bony abnormality Radiology Impression Discussion of test interpretation with radiology: I have reviewed the radiologist's reading. Radiologist Impression: [address] [address] XRay Report Signed Patient: Aislinn Major MR#: [id number] : 1960 Acct:[id number] Age/Sex: 62 / F ADM Date: 03/31/23 Loc: HO.ED Attending Dr: Ordering Physician: Ekta Vicente Date of Service: 03/31/23 Procedure(s): XR foot LT min 3V Accession Number(s): [id number] cc: Marcia Morales MD; Ekta Vicente~ EXAMINATION: XR FOOT, LEFT CLINICAL INFORMATION: Pain and swelling with discoloration. COMPARISON: None available. TECHNIQUE: AP, lateral, and oblique views of the left foot. FINDINGS: The bones and soft tissues are normal. No fracture. Alignment is anatomic. Joint spaces are maintained. There is diffuse osteopenia. The ankle mortise and subtalar joints are normal. There is a moderate size retrocalcaneal and calcaneal heel enthesophyte. XR/XR foot LT min 3V IMPRESSION: 1. No acute fracture or dislocation. 2. Moderate size retrocalcaneal and calcaneal heel enthesophytes. 3. There is diffuse osteopenia. Independent Historian Clinical information obtained from an independent historian. History obtained from or confirmed by: Other (daughter ) Prescription Management I considered prescription management with: Antibiotic Discharge Plan Discharge Clinical Impression: Pressure injury of deep tissue Patient Disposition: Home, Self-Care Instructions: Pressure Injury (ED) Additional Instructions: keep the heels elevated return for redness, swelling, fever, drainage from the site Prescriptions: No Action atorvastatin 80 mg tablet 1 tab PO BEDTIME allopurinol 100 mg tablet 1 tab PO QAM ferrous sulfate [FeroSul] 325 mg (65 mg iron) tablet 1 tab PO DAILY docusate sodium 100 mg capsule 1 cap PO BID omeprazole 20 mg capsule,delayed release(DR/EC) 1 cap PO BID albuterol sulfate [ProAir HFA] 90 mcg/actuation HFA aerosol inhaler 2 puff INHALATION Q4-6H PRN (Reason: Wheezing) lisinopril 40 mg tablet 1 tab PO QAM fluoxetine 20 mg capsule 1 cap PO QAM cholecalciferol (vitamin D3) [Vitamin D3] 25 mcg (1,000 unit) capsule 1 cap PO QAM clopidogrel [Plavix] 75 mg tablet 75 mg PO DAILY Qty: 28 0RF hydralazine 10 mg tablet 10 mg PO QID aspirin 81 mg tablet,delayed release (DR/EC) 81 mg PO QAM metoprolol tartrate 25 mg tablet 12.5 mg PO BID Qty: 30 0RF cefdinir 250 mg/5 mL suspension for reconstitution 250 mg PO Q12H Qty: 60 0RF Referrals: Marcia Morales MD [Primary Care Provider] - 1 week
[2023-03-31 16:33] VITALS: BP 149/79; PULSE 72; RESP 18; TEMP 36; O2SAT 95; BMI 29.3
[2023-03-31 17:01] VITALS: BP 169/85; PULSE 68; RESP 18; TEMP 36.6; O2SAT 97
[2023-03-31 18:02] LABS: PLT CLUMP 1; Red Cell Distribution Width 13.2 % (11.0-16.0); SCAN SMEAR FLAG 1
[2023-03-31 18:04] LABS: Basophils Percent Auto 0.3 % (0-2); Eosinophils Absolute Auto 0.3 X10*3/uL (0.0-0.4); Eosinophils Percent Auto 2.9 % (0-4); Hematocrit 45.9 % (37.0-47.0); Hemoglobin 14.8 g/dl (12.0-16.0); Imm Gran Abs Auto 0.04 X10*3/uL (0.00-0.03); Imm Gran Pct Auto 0.4 % (0.0-0.4); Lymphocytes Percent Auto 10.9 % (20-40); MANUAL DIFF FLAG SCAN; Mean Corpuscular HGB Conc 32.2 g/dl (31.0-35.0); Mean Corpuscular Volume 92.9 fL (80.0-98.0); Mean Platelet Volume 10.1 fL (9.4-12.3); Monocytes Absolute Auto 0.7 X10*3/uL (0.1-1.2); Neutrophils Absolute Auto 7.4 x10*3/uL (2.0-8.3); Neutrophils Percent Auto 78.5 % (45-73); Red Blood Count 4.94 X10*6/uL (4.20-5.50)
[2023-03-31 18:05] LABS: Anion Gap 17 (12-20); Blood Urea Nitrogen 17 mg/dL (9-16); Calcium 9.6 mg/dL (8.4-10.2); Carbon Dioxide 22 mmol/L (22-29); Chloride 106 mmol/L (96-108); Creatinine Clr Calc Pharmacy 61.9; Estimated Glomerular Filt Rate > 60; Glucose Random 114 mg/dL (60-115); Potassium 3.9 mmol/L (3.3-5.1); Sodium 141 mmol/L (135-145)
[2023-03-31 18:32] LABS: Platelet Count 182 X10*3/uL (160-400); SLIDE REVIEW VERIFIED; White Blood Count 9.2 X10*3/uL (4.8-10.8)
--- NOTE | 2023-03-31 19:27 | PC.NURSE ---
PT TO BE TRANSFERRED HOME VIA PRIVATE WHEELCHAIR VAN
== END 2023-03-31 20:35 | disposition home or self-care (01) ==
PROVIDERS: Physician Assistant; Emergency Provider Internal Medicine; PCP Family Medicine
DX: M79.672 Pain in left foot (principal); Z79.899 Other long term (current) drug therapy
CPT/HCPCS: 36415; 73630; 80048; 85025; 86140; 99282; 99283

== ENCOUNTER 2023-11-22 14:24 | Outpatient (REF) | payer MEDICAID, SELFPAY ==
--- NOTE | ~2023-11-22 | MM_ITS ---
EXAMINATION: MM DIAGNOSTIC DIGITAL BREAST TOMOSYNTHESIS, BILATERAL CLINICAL INFORMATION: Due for yearly, patient 5 months late for a 6 month follow-up for left breast probably benign upper slightly outer calcifications anterior one third. COMPARISON: Mammography: 01/04/2023, 11/08/2022. 05/30/2018, 08/09/2016, 03/14/2015. TECHNIQUE: Digital breast tomosynthesis is performed in both the craniocaudal and mediolateral oblique views along with computer-aided detection (CAD). Synthesized 2D images are generated from the tomosynthesis. In addition, 2-D spot magnification left CC and ML views were obtained. Patient is wheelchair-bound and as per technologist, positioning was extremely difficult. FINDINGS: There are scattered areas of fibroglandular density (ACR BI-RADS breast composition Category b). Calcifications in the upper outer anterior left breast are unchanged and have a benign morphology. They do not meet biopsy threshold, and have a circular appearance again likely relating to underlying small cyst or fibroadenoma. These are benign and no further follow-up recommended, especially in light of the patient's condition. Otherwise, there are no suspicious masses, suspicious grouped calcifications, or areas of architectural distortion in either breast. The parenchymal pattern is stable from prior exams. There is no skin or axillary abnormality. MM/MM tomosynthesis diagnostic BI IMPRESSION: -There are no findings suspicious for malignancy in either breast. - Calcifications left breast upper outer quadrant anterior one third are benign. No further follow-up recommended. Recommend the patient return to routine annual screening, if feasible given her condition. ASSESSMENT: BI-RADS BI-RADS 2 - Benign Findings RECOMMENDATION: 1 year F/U Results were provided to the patient at time of visit by the technologist. This patient's information was entered into a reminder system with a target due date for their next mammogram.
== END 2023-11-22 14:25 | disposition home or self-care (01) ==
LOC: HO.MAMMO 14:24
PROVIDERS: PCP Family Medicine; Visit Provider Family Medicine
DX: R92.1 Mammographic calcification found on diagnostic imaging of breast (principal)
CPT/HCPCS: 77062; 77066

== ENCOUNTER → 2023-11-22 14:30 | Outpatient (BNV) | payer MEDICAID, SELFPAY | PROVIDERS: PCP Family Medicine; Visit Provider Radiology Diagnostic Radiology | DX: R92.1 Mammographic calcification found on diagnostic imaging of breast (principal) | CPT/HCPCS: 77062; 77066 ==

== ENCOUNTER 2024-02-16 12:43 | Outpatient (REF) | payer MEDICAID, SELFPAY ==
[2024-02-16 16:14] LABS: MANUAL DIFF FLAG NO
[2024-02-16 16:22] LABS: Basophils Percent Auto 0.6 % (0-2); Eosinophils Absolute Auto 0.2 X10*3/uL (0.0-0.4); Eosinophils Percent Auto 2.4 % (0-4); Hematocrit 41.7 % (37.0-47.0); Hemoglobin 13.9 g/dl (12.0-16.0); Imm Gran Abs Auto 0.02 X10*3/uL (0.00-0.03); Imm Gran Pct Auto 0.3 % (0.0-0.4); Lymphocytes Absolute Auto 1.4 X10*3/uL (1.2-4.9); Lymphocytes Percent Auto 22.9 % (20-40); Mean Corpuscular HGB Conc 33.3 g/dl (31.0-35.0); Mean Corpuscular Hemoglobin 30.2 pg (27.0-33.0); Mean Corpuscular Volume 90.5 fL (80.0-98.0); Mean Platelet Volume 10.4 fL (9.4-12.3); Monocytes Absolute Auto 0.4 X10*3/uL (0.1-1.2); Monocytes Percent Auto 6.9 % (2-11); Neutrophils Absolute Auto 4.2 x10*3/uL (2.0-8.3); Neutrophils Percent Auto 66.9 % (45-73); Platelet Count 177 X10*3/uL (160-400); Red Blood Count 4.61 X10*6/uL (4.20-5.50); Red Cell Distribution Width 13.1 % (11.0-16.0); White Blood Count 6.3 X10*3/uL (4.8-10.8)
[2024-02-16 16:31] LABS: Estimated Average Glucose 108 mg/dL; Hemoglobin A1C 130.7883 umol/L; Hemoglobin A1c % 5.4 % (<6.0); Total Hemoglobin (HGBA1C) 3741.2448 umol/L
[2024-02-16 17:08] LABS: Alanine Aminotransferase 53 U/L (0-31); Albumin Level 3.9 g/dL (3.5-5.0); Alkaline Phosphatase 101 U/L (39-117); Anion Gap 14 (12-20); Aspartate Amino Transferase 48 U/L (5-31); Bilirubin Direct 0.2 mg/dL (0.0-0.5); Bilirubin Total 0.4 mg/dL (0.0-1.0); Blood Urea Nitrogen 18 mg/dL (9-16); Calcium 9.4 mg/dL (8.4-10.2); Carbon Dioxide 28 mmol/L (22-29); Chloride 106 mmol/L (96-108); Cholesterol 151 mg/dL (<200); Estimated Glomerular Filt Rate > 60; Glucose Random 121 mg/dL (60-115); HDL Cholesterol 48 mg/dL (>40); LDL Cholesterol Calculated 81 mg/dL (<100); Magnesium 1.7 mg/dL (1.6-2.6); Potassium 3.6 mmol/L (3.3-5.1); Sodium 144 mmol/L (135-145); Total Protein 6.9 g/dL (6.5-8.0); Triglycerides 114 mg/dL (<150)
[2024-02-16 17:15] LABS: TSH reflex Free T4 1.95 uIU/mL (0.32-4.0); Vitamin D 25-OH Total 39.8 ng/mL (>30)
[2024-02-16 17:27] LABS: Vitamin B12 520 pg/mL (200-900)
[2024-02-17 04:17] LABS: HIV AB/AG Nonreactive (Nonreactive); HIV Num 1 0.05 S/CO (0.00-0.99); ~Hepatitis C Antibody Nonreactive (Nonreactive)
== END 2024-02-16 12:44 | disposition home or self-care (01) ==
LOC: HO.HHCL 12:43
PROVIDERS: Visit Provider Family Medicine
DX: Z11.3 Encounter for screening for infections with a predominantly sexual mode of transmission (principal); Z11.4 Encounter for screening for human immunodeficiency virus [HIV]; E11.69 Type 2 diabetes mellitus with other specified complication; Z86.73 Personal history of transient ischemic attack (TIA), and cerebral infarction without residual deficits
CPT/HCPCS: 36415; 80048; 80061; 80076; 82306; 82607; 83036; 83735; 84443; 85025; 86803; 87389